=== PATIENT | male | born 1965 | race Caucasian/White ===

== ENCOUNTER 2020-04-01 06:06 | Outpatient (REF) | payer OTHER, SELFPAY ==
[2020-04-01 07:07] LABS: MANUAL DIFF FLAG NO
[2020-04-01 07:17] LABS: Basophils Percent Auto 0.5 % (0-2); Eosinophils Absolute Auto 0.1 X10*3/uL (0.0-0.4); Eosinophils Percent Auto 1.5 % (0-4); Imm Gran Abs Auto 0.04 X10*3/uL (0.00-0.03); Imm Gran Pct Auto 0.6 % (0.0-0.4); Lymphocytes Absolute Auto 1.5 X10*3/uL (1.2-4.9); Mean Corpuscular HGB Conc 34.1 g/dl (31.0-36.0); Mean Corpuscular Volume 96.7 fL (80-98); Mean Platelet Volume 10.7 fL (9.4-12.4); Monocytes Absolute Auto 0.5 X10*3/uL (0.1-1.2); Monocytes Percent Auto 7.7 % (2-11); Neutrophils Absolute Auto 4.5 X10*3/uL (2.0-8.3); Neutrophils Percent Auto 66.7 % (45-73); Platelet Count 222 X10*3/uL (160-400); Red Blood Count 4.55 X10*6/uL (4.60-5.80); Red Cell Distribution Width 12.4 % (11.0-16.0); White Blood Count 6.7 X10*3/uL (4.8-10.8)
[2020-04-01 07:46] LABS: Alanine Aminotransferase 34 U/L (0-40); Albumin Level 4.8 g/dL (3.5-5.0); Alkaline Phosphatase 90 U/L (39-117); Anion Gap 15 (12-20); Aspartate Amino Transferase 19 U/L (5-37); Bilirubin Total 1.9 mg/dL (0.0-1.0); Blood Urea Nitrogen 15 mg/dL (9-16); Calcium 9.5 mg/dL (8.4-10.2); Carbon Dioxide 25 mmol/L (22-29); Chloride 100 mmol/L (96-108); Cholesterol 168 mg/dL; Estimated Glomerular Filt Rate > 60; Glucose Fasting 104 mg/dL (60-99); HDL Cholesterol 46 mg/dL; LDL Cholesterol Calculated 93 mg/dl; Sodium 135 mmol/L (135-145); Total Protein 7.1 g/dL (6.5-8.0); Triglycerides 146 mg/dL
[2020-04-01 09:01] LABS: Reflex LDLD? No
== END 2020-04-01 06:07 | disposition home or self-care (01) ==
LOC: HO.LAB 06:06
PROVIDERS: Visit Provider Internal Medicine
DX: Z00.00 Encounter for general adult medical examination without abnormal findings (principal); E78.00 Pure hypercholesterolemia, unspecified; I10 Essential (primary) hypertension
CPT/HCPCS: 36415; 80053; 80061; 84153; 85025

== ENCOUNTER → 2020-04-08 14:28 | Outpatient (BNVA) | payer OTHER, SELFPAY | PROVIDERS: PCP Internal Medicine; Visit Provider Internal Medicine ==

== ENCOUNTER 2020-09-30 10:32 | Outpatient (REF) | payer OTHER, SELFPAY ==
[2020-09-30 10:36] LABS: MANUAL DIFF FLAG NO
[2020-09-30 11:11] LABS: Basophils Percent Auto 0.3 % (0-2); Eosinophils Absolute Auto 0.1 X10*3/uL (0.0-0.4); Eosinophils Percent Auto 2.3 % (0-4); Hematocrit 43.6 % (42-52); Hemoglobin 14.9 g/dl (14.0-18.0); Imm Gran Abs Auto 0.02 X10*3/uL (0.00-0.03); Imm Gran Pct Auto 0.3 % (0.0-0.4); Lymphocytes Absolute Auto 1.6 X10*3/uL (1.2-4.9); Mean Corpuscular HGB Conc 34.2 g/dl (31.0-36.0); Mean Corpuscular Hemoglobin 32.8 pg (27.0-33.0); Mean Platelet Volume 11.1 fL (9.4-12.4); Monocytes Absolute Auto 0.5 X10*3/uL (0.1-1.2); Monocytes Percent Auto 7.6 % (2-11); Neutrophils Absolute Auto 3.9 X10*3/uL (2.0-8.3); Neutrophils Percent Auto 63.5 % (45-73); Platelet Count 220 X10*3/uL (160-400); Red Blood Count 4.54 X10*6/uL (4.60-5.80); Red Cell Distribution Width 12.2 % (11.0-16.0); White Blood Count 6.2 X10*3/uL (4.8-10.8)
[2020-09-30 11:30] LABS: Alanine Aminotransferase 17 U/L (0-40); Albumin Level 4.6 g/dL (3.5-5.0); Alkaline Phosphatase 85 U/L (39-117); Anion Gap 16 (12-20); Aspartate Amino Transferase 15 U/L (5-37); Bilirubin Total 2.7 mg/dL (0.0-1.0); Blood Urea Nitrogen 9 mg/dL (9-16); Calcium 9.6 mg/dL (8.4-10.2); Carbon Dioxide 25 mmol/L (22-29); Chloride 102 mmol/L (96-108); Cholesterol 149 mg/dL; Estimated Glomerular Filt Rate > 60; Glucose Fasting 102 mg/dL (60-99); HDL Cholesterol 48 mg/dL; LDL Cholesterol Calculated 69 mg/dl; Potassium 4.1 mmol/L (3.3-5.1); Sodium 139 mmol/L (135-145); Total Protein 6.9 g/dL (6.5-8.0); Triglycerides 162 mg/dL
[2020-09-30 11:40] LABS: PSA,Total (Free>4and<10) 0.22 ng/mL (0.00-4.00)
[2020-09-30 11:56] LABS: Reflex LDLD? No
== END 2020-09-30 10:33 | disposition home or self-care (01) ==
LOC: HO.LNP 10:32
PROVIDERS: Visit Provider Internal Medicine
DX: Z00.00 Encounter for general adult medical examination without abnormal findings (principal); Z12.5 Encounter for screening for malignant neoplasm of prostate; I10 Essential (primary) hypertension; E78.00 Pure hypercholesterolemia, unspecified; E80.4 Gilbert syndrome
CPT/HCPCS: 80053; 80061; 84153; 85025

== ENCOUNTER 2021-02-09 08:08 | Outpatient (REF) | payer OTHER, SELFPAY ==
--- NOTE | ~2021-02-09 | XR_ITS ---
EXAMINATION: XR SHOULDER, RIGHT CLINICAL INFORMATION: Pain in the right shoulder COMPARISON: None TECHNIQUE: Three views of the right shoulder. FINDINGS: The bones and soft tissues are normal. No fracture. Glenohumeral and acromioclavicular alignment is anatomic with normal joint space. No abnormal soft tissue calcifications. XR/XR shoulder RT min 2V IMPRESSION: Normal right shoulder.
--- NOTE | ~2021-02-09 | XR_ITS ---
EXAMINATION: XR SHOULDER, LEFT CLINICAL INFORMATION: Left shoulder pain COMPARISON: None TECHNIQUE: AP external rotation, Grashey, scapular Y, and axillary views of the left shoulder. FINDINGS: The bones and soft tissues are normal. No fracture. Glenohumeral and acromioclavicular alignment is anatomic with normal joint space. No abnormal soft tissue calcifications. XR/XR shoulder LT min 2V IMPRESSION: Normal left shoulder.
== END 2021-02-09 08:09 | disposition home or self-care (01) ==
LOC: HO.HOSX 08:08
PROVIDERS: Visit Provider Physician Assistant
DX: M75.51 Bursitis of right shoulder (principal)
CPT/HCPCS: 20610; 73030; J1040

== ENCOUNTER 2021-04-02 10:40 | Outpatient (REF) | payer OTHER, SELFPAY ==
[2021-04-02 11:36] LABS: Alanine Aminotransferase 63 U/L (0-40); Albumin Level 4.6 g/dL (3.5-5.0); Alkaline Phosphatase 135 U/L (39-117); Aspartate Amino Transferase 29 U/L (5-37); Bilirubin Direct 0.6 mg/dL (0.0-0.5); Bilirubin Total 1.7 mg/dL (0.0-1.0); Cholesterol 159 mg/dL; HDL Cholesterol 49 mg/dL; LDL Cholesterol Calculated 89 mg/dl; Total Protein 6.9 g/dL (6.5-8.0); Triglycerides 109 mg/dL
[2021-04-02 11:59] LABS: Reflex LDLD? No
== END 2021-04-02 10:41 | disposition home or self-care (01) ==
LOC: HO.LNP 10:40
PROVIDERS: Visit Provider Internal Medicine
DX: E78.00 Pure hypercholesterolemia, unspecified (principal)
CPT/HCPCS: 80061; 80076

== ENCOUNTER → 2021-04-09 14:42 | Outpatient (BNVA) | payer OTHER, SELFPAY | PROVIDERS: PCP Internal Medicine; Referring Provider Internal Medicine; Visit Provider Internal Medicine | DX: I25.10 Atherosclerotic heart disease of native coronary artery without angina pectoris (principal); I10 Essential (primary) hypertension; E78.5 Hyperlipidemia, unspecified; R79.89 Other specified abnormal findings of blood chemistry | CPT/HCPCS: 93005 ==

== ENCOUNTER → 2021-04-22 14:36 | Outpatient (BNVA) | payer OTHER, SELFPAY | PROVIDERS: PCP Internal Medicine; Visit Provider Physician Assistant | DX: M75.51 Bursitis of right shoulder (principal); M25.512 Pain in left shoulder; M77.8 Other enthesopathies, not elsewhere classified | CPT/HCPCS: 20610 ==

== ENCOUNTER → 2021-05-20 14:49 | Outpatient (REF) | payer OTHER, SELFPAY ==
--- NOTE | 2021-05-20 14:53 | CA_ITS ---
Transthoracic Echocardiogram Patient (Last, First, Middle): Jaya Finley M Gender: Male Date of : 1965 Age: 55 Procedure Date: 05/20/2021 Procedure Type: Transthoracic Echocardiogram Location: OP Height: 172.72 cm Weight: 86.18 kg BSA: 2.00 m2 Heart Rate: bpm BP: 142 / 86 mmHg Spotter: FAUSTO Referring MD: German Marinelli MD Director Non Profit: Grant Kee MD Symptoms: I25.10 - Atherosclerotic heart disease of [place] coronary... Study Quality: Fair ECG Rhythm: Sinus Conclusions: - 1. Normal LV systolic function 2. Normal cardiac valvular Dopplers 3. Normal RVSP 4. No pericardial effusion Findings Left Ventricle Normal left ventricular size, thickness, and systolic function. The visually estimated ejection fraction is between 60-65%. Spectral Doppler is indicative of a normal filling pattern. E/E prime ratio is between 8 and 15 consistent with indeterminate filling pressures. Right Ventricle Normal right ventricular cavity size and systolic function. Atria The left atrium is normal in size. There is no evidence of interatrial shunt. The right atrium is normal in size. Aortic Valve There is mild calcification of the aortic valve. There is no aortic valve stenosis. There is no aortic valve regurgitation. Mitral Valve There is mild anterior and posterior mitral leaflet thickening. There is mild mitral annular calcification. There is trace mitral valve regurgitation. There is no mitral valve stenosis. Pulmonic Valve The pulmonic valve was not well visualized. Tricuspid Valve Likely normal tricuspid valve structure and function. There is trace tricuspid valve regurgitation. The right ventricular systolic pressure is normal. The right ventricular systolic pressure is 14 mmHg. Normal right atrial pressure. There is no evidence of pulmonary hypertension. Great Vessels All visible segments of the aorta are normal in size. The pulmonary artery was not well visualized. Small plaque is seen in the ascending aorta. Venous The inferior vena cava is normal in size and collapses greater than 50% with inspiration. Pericardium/Pleural There is no evidence of pericardial effusion. Prior Study Comparison No significant change compared to prior study dated: 09/08/2016. Measurements 2D Linear Measurements IVSd: 0.82 0.6-0.9/0.6-1.0 cm LVIDd: 4.88 3.9-5.3/4.2-5.9 cm LVIDd Index: 2.44 2.4-3.2/2.2-3.1 cm/m2 LVIDs: 3.01 2.0-3.6 cm LVPWd: 0.95 0.7-1.1 cm LA Diam: 4.30 2.7-3.8/3.0-4.0 cm LAIDs Index: 2.15 1.5-2.3 cm/m2 LV Mass: 184.70 67-162/88-224 g LV Mass Index: 92.35 43-95/49-115 g/m2 LVOT Diam: 2.10 3.0+(-)1.3 cm 2D Systolic Function EF 4C: 66.60 >55% EF 2C: 69.10 >55% EF BiP: 65.90 >55% Mitral Valve MV Pk E: 1.10 MV PK A: 0.88 MV Decel Time: 188.00 E/A: 1.20 E'Lateral: 12.80 E'Medial: 9.25 E/E' Med: 11.90 E/E' Lat: 8.60 PHT: 55.00 MVA PHT: 4.00 Decel Leon: 5.84 Aortic Valve AoV Pk Paras: 1.57 AoV Mn Paras: 0.92 AoV VTI: 0.32 AoV Pk Grad: 10.00 Aov Mn Grad: 4.00 MICHELLE Cont.VTI: 2.70 LVOT LVOT Pk Paras: 1.22 LVOT Mn Paras: 0.69 LVOT VTI: 0.25 LVOT Pk Grad: 6.00 LVOT Mn Grad: 2.00 LVOT Diam: 2.10 LVOT Area: 3.46 Diastolic Function MV Pk E: 1.10 MV Pk A: 0.88 E/A: 1.20 E'Medial: 9.25 E/E' Med: 11.90 E' Laterial: 12.80 E/E' Lat: 8.60 Right Ventricle TAPSE (mm): 26.40 TVS' Paras: 13.90 Tricuspid Valve TR Pk Paras: 1.68 TR Pk Grad: 11.00 RA Press: 3.00 RVSP: 14.00 Great Vessels Aorta Sinus of Valsalva: 2.92 2.0-3.[address] Ridge: 2.98 1.7-3.4 cm Ao Asc: 3.60 2.1-3.4 cm Ao Arch: 3.30 Updated in Other Vendor System with Status of Final Grant Kee MD electronically signed on 05/20/2021 10:13:26 PM with status of Final
== END ==
LOC: HO.CARD 14:49
PROVIDERS: PCP Internal Medicine; Visit Provider Internal Medicine
DX: R07.2 Precordial pain (principal); I25.10 Atherosclerotic heart disease of native coronary artery without angina pectoris
CPT/HCPCS: 93306

== ENCOUNTER 2021-06-01 16:04 | Outpatient (REF) | payer OTHER, SELFPAY | END 2021-06-01 16:05 | disposition home or self-care (01) | LOC: HO.MRI 16:04 | PROVIDERS: PCP Internal Medicine; Visit Provider Physician Assistant | DX: Z13.89 Encounter for screening for other disorder (principal) ==

== ENCOUNTER 2021-06-06 07:46 | Outpatient (REF) | payer OTHER, SELFPAY ==
[2021-06-06 08:54] LABS: Alanine Aminotransferase 27 U/L (0-40); Albumin Level 4.4 g/dL (3.5-5.0); Alkaline Phosphatase 75 U/L (39-117); Aspartate Amino Transferase 17 U/L (5-37); Bilirubin Direct 0.7 mg/dL (0.0-0.5); Bilirubin Total 2.4 mg/dL (0.0-1.0); Total Protein 6.6 g/dL (6.5-8.0)
== END 2021-06-06 07:47 | disposition home or self-care (01) ==
LOC: HO.LAB 07:46
PROVIDERS: PCP Internal Medicine; Visit Provider Internal Medicine
DX: I25.10 Atherosclerotic heart disease of native coronary artery without angina pectoris (principal)
CPT/HCPCS: 36415; 80076

== ENCOUNTER 2021-07-27 14:56 | Outpatient (REF) | payer OTHER, SELFPAY ==
[2021-07-27 15:41] LABS: COVID-19 Test Negative (Negative)
== END 2021-07-27 14:57 | disposition home or self-care (01) ==
LOC: HO.LAB 14:56
PROVIDERS: Visit Provider Internal Medicine
DX: Z20.822 Contact with and (suspected) exposure to COVID-19 (principal)
CPT/HCPCS: 87635; C9803

== ENCOUNTER 2021-10-08 11:19 | Outpatient (REF) | payer OTHER, SELFPAY ==
[2021-10-08 11:24] LABS: MANUAL DIFF FLAG NO
[2021-10-08 12:33] LABS: Basophils Percent Auto 0.3 % (0-2); Eosinophils Absolute Auto 0.2 X10*3/uL (0.0-0.4); Eosinophils Percent Auto 2.7 % (0-4); Hematocrit 44.8 % (42.0-52.0); Hemoglobin 15.3 g/dl (14.0-18.0); Imm Gran Abs Auto 0.03 X10*3/uL (0.00-0.03); Imm Gran Pct Auto 0.4 % (0.0-0.4); Lymphocytes Absolute Auto 1.4 X10*3/uL (1.2-4.9); Lymphocytes Percent Auto 21.2 % (20-40); Mean Corpuscular HGB Conc 34.2 g/dl (31.0-36.0); Mean Corpuscular Hemoglobin 32.1 pg (27.0-33.0); Mean Corpuscular Volume 93.9 fL (80.0-98.0); Mean Platelet Volume 11.2 fL (9.4-12.4); Monocytes Absolute Auto 0.6 X10*3/uL (0.1-1.2); Monocytes Percent Auto 8.1 % (2-11); Neutrophils Absolute Auto 4.6 x10*3/uL (2.0-8.3); Neutrophils Percent Auto 67.3 % (45-73); Platelet Count 189 X10*3/uL (160-400); Red Blood Count 4.77 X10*6/uL (4.60-5.80); Red Cell Distribution Width 12.8 % (11.0-16.0); White Blood Count 6.8 X10*3/uL (4.8-10.8)
[2021-10-08 12:43] LABS: Appearance Urine CLEAR; Color Urine YELLOW; Glucose Urine UA NEG (NEG); Leukocyte Esterase Urine NEG (NEG); Nitrite Urine NEG (NEG); Urine Blood NEG (NEG); Urine Ketones NEG (NEG); Urine Protein NEG (NEG-TRACE)
[2021-10-08 13:06] LABS: Squamous Epithelial Cell Urine 1+ /LPF
[2021-10-08 13:13] LABS: RBC Urine 0 /HPF (0); Sperm Urine NOTED; WBC Urine 0 /HPF (0-4)
[2021-10-08 13:35] LABS: Alanine Aminotransferase 27 U/L (0-40); Albumin Level 4.5 g/dL (3.5-5.0); Alkaline Phosphatase 90 U/L (39-117); Anion Gap 14 (12-20); Aspartate Amino Transferase 14 U/L (5-37); Bilirubin Total 2.2 mg/dL (0.0-1.0); Blood Urea Nitrogen 7 mg/dL (9-16); Calcium 8.9 mg/dL (8.4-10.2); Carbon Dioxide 26 mmol/L (22-29); Chloride 103 mmol/L (96-108); Cholesterol 146 mg/dL; Estimated Glomerular Filt Rate > 60; Glucose Fasting 73 mg/dL (60-99); HDL Cholesterol 43 mg/dL; LDL Cholesterol Calculated 79 mg/dl; Potassium 3.6 mmol/L (3.3-5.1); Sodium 139 mmol/L (135-145); Total Protein 6.6 g/dL (6.5-8.0); Triglycerides 124 mg/dL
[2021-10-08 14:10] LABS: PSA,Total (Free>4and<10) 0.52 ng/mL (0.00-4.00)
== END 2021-10-08 11:20 | disposition home or self-care (01) ==
LOC: HO.LNP 11:19
PROVIDERS: Visit Provider Internal Medicine
DX: Z00.00 Encounter for general adult medical examination without abnormal findings (principal); I10 Essential (primary) hypertension; E78.00 Pure hypercholesterolemia, unspecified; Z12.5 Encounter for screening for malignant neoplasm of prostate
CPT/HCPCS: 80053; 80061; 81001; 84153; 85025

== ENCOUNTER 2022-03-26 14:14 | Outpatient (REF) | payer OTHER, SELFPAY ==
[2022-03-26 15:26] LABS: TSH reflex Free T4 1.09 uIU/mL (0.32-4.0)
== END 2022-03-26 14:15 | disposition home or self-care (01) ==
LOC: HO.LAB 14:14
PROVIDERS: PCP Internal Medicine; Visit Provider Internal Medicine
DX: E04.9 Nontoxic goiter, unspecified (principal)
CPT/HCPCS: 36415; 84443

== ENCOUNTER 2022-03-30 15:17 | Outpatient (REF) | payer OTHER, SELFPAY ==
--- NOTE | ~2022-03-30 | US_ITS ---
EXAMINATION: US THYROID CLINICAL INFORMATION: Enlarged thyroid. COMPARISON: None TECHNIQUE: Linear transducer grayscale and color Doppler examination with attention to the region of the thyroid. FINDINGS: SIZE: Measurements of the thyroid lobes and nodules are given in sagittal, anteroposterior and transverse dimensions respectively. Right Thyroid Lobe: 4.7 x 1.3 x 1.6 cm, volume 5.3 mL. Parenchyma: The gland echotexture is homogeneous. Thyroid vascularity is normal. Left Thyroid Lobe: 4.0 x 1.7 x 1.6 cm, volume 5.7 mL. Parenchyma: The gland echotexture is homogeneous. Thyroid vascularity is normal. Isthmus: 0.4 cm in maximum AP dimension. No suspicious focal thyroid nodule is seen. NODES: No lymphadenopathy is seen in the tissue surrounding the thyroid gland. US/US thyroid IMPRESSION: Unremarkable thyroid ultrasound. ACR TI-RADS RECOMMENDATION REFERENCE: Ultrasound-guided fine-needle aspiration, followup ultrasound, no further follow up. * TR1 (0 point) and TR 2 (2 points): No FNA or follow up. * TR3 (3 points): FNA if more than or equal to 2.5 cm in maximum dimension, followup ultrasound in 1, 3 and 5 years if 1.5 to 2.4 cm in maximum dimension. * TR4 (4-6 points): FNA if more than or equal to 1.5 cm in maximum dimension, followup ultrasound in 1, 2, 3 and 5 years if 1 to 1.4 cm in maximum dimension. * TR5 (more than or equal to 7 points): FNA if more than or equal to 1 cm in maximum dimension, followup ultrasound every year for 5 years if 0.5 to 0.9 cm in maximum dimension. * TR3, TR4 or TR5 nodules that are below the size threshold for followup receive no follow up.
== END 2022-03-30 15:18 | disposition home or self-care (01) ==
LOC: HO.US 15:17
PROVIDERS: PCP Internal Medicine; Visit Provider Internal Medicine
DX: E04.9 Nontoxic goiter, unspecified (principal)
CPT/HCPCS: 76536

== ENCOUNTER → 2022-04-08 14:48 | Outpatient (BNVA) | payer OTHER, SELFPAY | PROVIDERS: PCP Internal Medicine; Visit Provider Internal Medicine | DX: I25.10 Atherosclerotic heart disease of native coronary artery without angina pectoris (principal); I10 Essential (primary) hypertension; R79.89 Other specified abnormal findings of blood chemistry; E78.5 Hyperlipidemia, unspecified | CPT/HCPCS: 93005 ==

== ENCOUNTER 2022-04-16 10:32 | Outpatient (REF) | payer OTHER, SELFPAY ==
[2022-04-16 11:52] LABS: Alanine Aminotransferase 38 U/L (0-40); Albumin Level 4.6 g/dL (3.5-5.0); Alkaline Phosphatase 90 U/L (39-117); Aspartate Amino Transferase 21 U/L (5-37); Bilirubin Direct 0.6 mg/dL (0.0-0.5); Bilirubin Total 2.5 mg/dL (0.0-1.0); Cholesterol 162 mg/dL; HDL Cholesterol 53 mg/dL; LDL Cholesterol Calculated 87 mg/dl; Total Protein 6.6 g/dL (6.5-8.0); Triglycerides 114 mg/dL
[2022-04-16 12:44] LABS: Reflex LDLD? No
== END 2022-04-16 10:33 | disposition home or self-care (01) ==
LOC: HO.LNP 10:32
PROVIDERS: Visit Provider Internal Medicine
DX: E78.00 Pure hypercholesterolemia, unspecified (principal)
CPT/HCPCS: 80061; 80076

== ENCOUNTER 2022-05-04 08:13 | Outpatient (REF) | payer OTHER, SELFPAY ==
--- NOTE | ~2022-05-04 | CT_ITS ---
EXAMINATION: CT SOFT TISSUE NECK WITH CONTRAST CLINICAL INFORMATION: Thyroglossal duct cyst COMPARISON: CT neck 05/31/2006 TECHNIQUE: Following the administration of 60 mL of Omnipaque 350 intravenous contrast, helical imaging was performed in the axial plane with generation of coronal and sagittal reformatted images. This CT examination was performed using dose optimization techniques as appropriate, variously including the following: *Automated exposure control. *Adjustment of mA and/or kV according to patient size (this includes techniques or standardized protocols for targeted exams where dose is matched to indication/reason for exam; i.e. extremities or head). *Use of iterative reconstruction technique. DLP: History 66 mGy-cm. FINDINGS: Nasopharynx/skull base: The fat planes of the skull base and soft tissues of the nasopharynx are unremarkable. The soft palate contacts the posterior nasopharyngeal wall. The paranasal sinuses and mastoid air cells are well aerated. The temporomandibular joints are normal. Suprahyoid neck: The patient is edentulous. The oropharynx, oral cavity, and bilateral salivary gland tissues are unremarkable. Infrahyoid neck: The hypopharynx is unremarkable. There is a 3 mm air-filled internal laryngocele on the right. Adduction of the vocal cords at time of imaging limits assessment of the glottis. No thyroglossal duct cyst is identified, however there is a new 3 mm calcification within the left paramidline infrahyoid neck within the preepiglottic fat which is nonspecific and of indeterminate etiology. Thyroid: 4 mm hypodense right thyroid nodule below size criteria for imaging follow-up Lymph nodes: There is no cervical chain lymphadenopathy. Lung apices: Few scattered calcified granulomata throughout the lungs, some of which were excluded from the [id number] on prior examination, likely sequelae of prior granulomatous disease. Vascular structures: Severe coronary artery vascular calcifications. Common origin of the brachycephalic trunk and left common carotid artery. Multifocal minimal calcific plaque along the great vessel origins and at the common carotid bifurcations. Osseous structures: Mild cervical spondylosis contributing to multilevel moderate to high-grade neural foraminal stenosis. Other: The imaged portions of the brain parenchyma are unremarkable. Progressive calcific plaque along the left greater than right carotid siphons. CT/CT soft tissue neck w IV con IMPRESSION: 1. No thyroglossal duct cyst is identified, however there is a new 3 mm calcification within the left paramidline infrahyoid neck within the preepiglottic fat which is nonspecific and of indeterminate etiology. 2. Few scattered calcified granulomata throughout the lungs, some of which were excluded from the [id number] on prior examination, likely sequelae of prior granulomatous disease.
[2022-05-04] MEDS: iohexoL 350 MG/ML 100 ML INFUS..BTL 60 ML IV (09:11)
[2022-05-04 13:37] LABS: Creatinine POC 0.9 mg/dL (0.5-1.4); GFR POC > 60
== END 2022-05-04 08:14 | disposition home or self-care (01) ==
LOC: HO.CT 08:13
PROVIDERS: Visit Provider Internal Medicine
DX: Q69.2 Accessory toe(s) (principal)
CPT/HCPCS: 70491; 82565; Q9967

== ENCOUNTER 2022-05-25 10:15 | Outpatient (REF) | payer OTHER, SELFPAY ==
--- NOTE | ~2022-05-25 | FL_ITS ---
EXAMINATION: FL BARIUM SWALLOW CLINICAL INFORMATION: Localized swelling, mass and lump. COMPARISON: None TECHNIQUE: Barium swallow examination is performed using fluoroscopic evaluation in addition to multiple fluoroscopic spot views. The patient is imaged both upright and prone and using both thick and thin sulfate along with effervescent granules. FLUOROSCOPY TIME: 1.2 minutes. DOSE AREA PRODUCT: 10.3 Gy-cm2 FLUOROSCOPIC IMAGES: 52 FINDINGS: Following oral administration of thick barium, barium coated turkey there is normal propagation of bolus from the oral cavity through the pharynx, esophagus into stomach without any evidence of obstruction, narrowing or stricture. On placing patient prone lying and oral administration of thin barium there is good distention of the esophagus without any evidence of obstruction, narrowing or stricture. No laryngeal penetration or aspiration seen. There is no retention of barium in the valleculae or piriform sinuses. FL/FL barium swallow IMPRESSION: Unremarkable barium swallow exam.
== END 2022-05-25 10:16 | disposition home or self-care (01) ==
LOC: HO.XRAY 10:15
PROVIDERS: Visit Provider Internal Medicine
DX: R22.1 Localized swelling, mass and lump, neck (principal)
CPT/HCPCS: 74220

== ENCOUNTER 2022-07-06 07:18 | Outpatient (REF) | payer OTHER, SELFPAY ==
--- NOTE | ~2022-07-06 | XR_ITS ---
EXAMINATION: XR LUMBOSACRAL SPINE CLINICAL INFORMATION: Reason for Exam Radiculopathy, lumbar REGION COMPARISON: Lumbar spine radiographs 03/19/2012 TECHNIQUE: 3 views of the lumbar spine FINDINGS: 5 nonrib-bearing lumbar-type vertebral bodies. Vertebral body heights are maintained. Alignment is maintained. Mild multilevel degenerative disc disease with minimal loss of disc space height and degenerative endplate spurring with moderate to advanced lower lumbosacral facet arthropathy progressed from prior. Atherosclerotic calcifications of the abdominal aorta. XR/XR lumbar spine 2-3V IMPRESSION: Mild multilevel degenerative disc disease with minimal loss of disc space height and degenerative endplate spurring with moderate to advanced lower lumbosacral facet arthropathy progressed from prior.
== END 2022-07-06 07:19 | disposition home or self-care (01) ==
LOC: HO.XRAY 07:18
PROVIDERS: PCP Internal Medicine; Visit Provider Physician Assistant
DX: M54.16 Radiculopathy, lumbar region (principal)
CPT/HCPCS: 72100

== ENCOUNTER 2022-07-30 07:19 | Outpatient (REF) | payer OTHER, SELFPAY ==
--- NOTE | ~2022-07-30 | MR_ITS ---
EXAMINATION: MR LUMBAR SPINE WITHOUT CONTRAST CLINICAL INFORMATION: Radiculopathy COMPARISON: Lumbar spine MRI 01/20/2006 TECHNIQUE: MRI of the lumbar spine was obtained using routine sequences without contrast. FINDINGS: Normal lumbar lordosis is preserved. No significant spondylolisthesis. Vertebral body heights are maintained. There is no suspicious osseous lesion. Multilevel disc desiccation with increased mild T12-L1 disc height loss. Progressive multilevel type II Modic endplate change and new prominent type I Modic endplate change along the T12 anterior inferior endplate on a background of type II Modic endplate change. Redemonstrated multilevel small endplate Schmorl's nodes. Multilevel anterior osteophytic spurring is seen.There are multilevel degenerative changes with level by level detail as follows: L1-L2: Trace annular disc bulge and mild bilateral facet arthrosis. Prominence of the dorsal epidural fat. Stable to slightly increased mild spinal canal narrowing without neural foraminal stenosis. L2-L3: Annular disc bulge with new left greater than right far lateral disc protrusions and associated annular fissure on the left with adjacent paraspinal edema suggestive of acute inflammation (image 1, series 5). Mild bilateral facet arthrosis and ligamentum flavum thickening. Prominence of the dorsal epidural fat. Stable mild spinal canal narrowing. Increased mild bilateral neural foraminal stenosis with new mass effect along the extraforaminal left and to a lesser extent right L2 nerve roots. L3-L4: Annular disc bulge with new superiorly migrated left foraminal disc extrusion and moderate facet arthrosis with ligamentum flavum thickening. Stable mild spinal canal narrowing and subarticular zone stenosis with abutment along the traversing bilateral L4 nerve roots. Increased moderate to severe left neural foraminal stenosis with new mass effect along the exiting left L3 nerve root and similar mild right neural foraminal stenosis. L4-L5: Annular disc bulge with bilateral moderate facet arthrosis and ligamentum flavum thickening. Degenerative marrow and periarticular edema associated with the right facet joint with small extracanalicular cysts associated with the left facet joint projecting into the paraspinal soft tissues. Stable mild spinal canal stenosis and subarticular zone narrowing with encroachment upon/abutment of the traversing L5 nerve roots. Increased severe right neural foraminal stenosis with compression of the exiting right L4 nerve root and increased moderate left neural foraminal stenosis with lesser mass effect along the exiting left L4 nerve root. L5-S1: Annular disc bulge with moderate bilateral facet arthrosis. No spinal canal stenosis. Unchanged mild to moderate bilateral neural foraminal stenosis with impingement upon the exiting left L5 nerve root. The conus medullaris terminates at the level of T12. The distal spinal cord is normal in appearance. No epidural fluid collection, hematoma, or mass. Increased mild fatty atrophy of the paraspinal musculature. Markedly distended bladder. The abdominal aorta is of normal contour and caliber. Degenerative osteophytic spurring along the right greater than left sacroiliac joints. MR/MR lumbar spine wo con IMPRESSION: 1. At L2-L3, new left greater than right far lateral disc protrusions and associated annular fissure and paraspinal edema/inflammatory change on the left. Increased mild bilateral neural foraminal stenosis with new mass effect along the extraforaminal left and to a lesser extent right L2 nerve roots. 2. At L3-L4, new superiorly migrated left foraminal disc extrusion results in increased severe left neural foraminal stenosis with new mass effect along the exiting left L3 nerve root. 3. At L4-L5, worsening severe right and moderate left neural foraminal stenosis with compression of the exiting right greater than left L4 nerve roots. 4. At L5-S1, stable mild to moderate bilateral neural foraminal stenosis with impingement upon the exiting left L5 nerve root. 5. Progressive mild T12-L1 disc height loss with increased type I Modic endplate change on a background of type II Modic endplate change at this level. Progressive multilevel type II Modic endplate change. 6. Markedly distended bladder.
== END 2022-07-30 07:20 | disposition home or self-care (01) ==
LOC: HO.MRI 07:19
PROVIDERS: PCP Internal Medicine; Visit Provider Physician Assistant
DX: M54.16 Radiculopathy, lumbar region (principal)
CPT/HCPCS: 72148

== ENCOUNTER 2022-09-02 13:38 | Outpatient (REF) | payer OTHER, SELFPAY ==
--- NOTE | ~2022-09-02 | US_ITS ---
EXAMINATION: US PELVIS LIMITED (BLADDER) CLINICAL INFORMATION: Bladder distention. COMPARISON: CT abdomen and pelvis without and with contrast 01/18/2017. TECHNIQUE: Real-time imaging of the bladder. FINDINGS: BLADDER: Well distended and normal. Bilateral ureteral jets are demonstrated. Prevoid bladder volume is 1094 mL. Postvoid bladder volume is 231 mL. OTHER: Prostate dimensions are 3.6 x 3.6 x 3.8 cm (volume 26.1 mL). US/US bladder IMPRESSION: There is a significantly increased postvoid residual volume.
== END 2022-09-02 13:39 | disposition home or self-care (01) ==
LOC: HO.US 13:38
PROVIDERS: PCP Internal Medicine; Visit Provider Internal Medicine
DX: N32.89 Other specified disorders of bladder (principal)
CPT/HCPCS: 76857

== ENCOUNTER 2022-10-07 13:17 | Outpatient (REF) | payer OTHER, SELFPAY ==
[2022-10-07 13:55] LABS: MANUAL DIFF FLAG NO
[2022-10-07 14:05] LABS: Basophils Percent Auto 0.4 % (0-2); Eosinophils Absolute Auto 0.2 X10*3/uL (0.0-0.4); Eosinophils Percent Auto 4.3 % (0-4); Hemoglobin 15.6 g/dl (14.0-18.0); Imm Gran Abs Auto 0.01 X10*3/uL (0.00-0.03); Imm Gran Pct Auto 0.2 % (0.0-0.4); Lymphocytes Absolute Auto 1.6 X10*3/uL (1.2-4.9); Lymphocytes Percent Auto 35.7 % (20-40); Mean Corpuscular HGB Conc 33.9 g/dl (31.0-36.0); Mean Corpuscular Hemoglobin 31.8 pg (27.0-33.0); Mean Corpuscular Volume 93.9 fL (80.0-98.0); Mean Platelet Volume 10.5 fL (9.4-12.4); Monocytes Absolute Auto 0.4 X10*3/uL (0.1-1.2); Monocytes Percent Auto 9.4 % (2-11); Neutrophils Absolute Auto 2.2 x10*3/uL (2.0-8.3); Platelet Count 188 X10*3/uL (160-400); Red Cell Distribution Width 13.4 % (11.0-16.0); White Blood Count 4.5 X10*3/uL (4.8-10.8)
[2022-10-07 14:21] LABS: Alanine Aminotransferase 34 U/L (0-40); Albumin Level 4.4 g/dL (3.5-5.0); Alkaline Phosphatase 86 U/L (39-117); Anion Gap 16 (12-20); Aspartate Amino Transferase 22 U/L (5-37); Blood Urea Nitrogen 6 mg/dL (9-16); Calcium 9.5 mg/dL (8.4-10.2); Carbon Dioxide 23 mmol/L (22-29); Chloride 104 mmol/L (96-108); Cholesterol 164 mg/dL; Estimated Glomerular Filt Rate > 60; Glucose Fasting 96 mg/dL (60-99); HDL Cholesterol 49 mg/dL; LDL Cholesterol Calculated 82 mg/dl; Potassium 3.8 mmol/L (3.3-5.1); Sodium 139 mmol/L (135-145); Total Protein 6.7 g/dL (6.5-8.0); Triglycerides 166 mg/dL
[2022-10-07 14:26] LABS: Appearance Urine Clear; Color Urine Yellow; Glucose Urine UA Negative (Negative); Leukocyte Esterase Urine Negative (Negative); Nitrite Urine Negative (Negative); PH 6.5 (5.0-9.0); Urine Blood Negative (Negative); Urine Ketones Negative (Negative); Urine Protein Negative (Neg-Trace)
[2022-10-07 14:31] LABS: Bacteria Urine None Seen (None Seen); Hyaline Casts Urine 0-2 /LPF (0-2); RBC Urine 0-2 /HPF (0-2); Squamous Epithelial Cell Urine 0-2 /HPF (0-2); WBC Urine 0-5 /HPF (0-5)
[2022-10-07 14:32] LABS: PSA,Total (Free>4and<10) 0.68 ng/mL (0.00-4.00)
== END 2022-10-07 13:18 | disposition home or self-care (01) ==
LOC: HO.LNP 13:17
PROVIDERS: Visit Provider Internal Medicine
DX: Z00.00 Encounter for general adult medical examination without abnormal findings (principal); I10 Essential (primary) hypertension; E78.00 Pure hypercholesterolemia, unspecified; Z12.5 Encounter for screening for malignant neoplasm of prostate
CPT/HCPCS: 80053; 80061; 81001; 84153; 85025

== ENCOUNTER 2022-11-10 19:32 | Outpatient (REF) | payer OTHER, SELFPAY | END 2022-11-10 19:33 | disposition home or self-care (01) | LOC: HO.MRI 19:32 | PROVIDERS: PCP Internal Medicine; Visit Provider Physical Medicine & Rehabilitation | DX: Z13.89 Encounter for screening for other disorder (principal) ==

== ENCOUNTER 2022-12-17 13:12 | Outpatient (AMB) | payer OTHER, SELFPAY ==
[2022-12-17 13:14] VITALS: BP 140/86; PULSE 57; BMI 29.2
--- NOTE | 2022-12-17 13:14 | MHC.OFFVIS ---
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 Today he reports that he has been getting increasing amounts of left chest pressure. It only occurs when he is angry at work. He reports high stress levels at work and in his home life. No clear exertional discomfort. No shortness of breath, PND, orthopnea or edema. No presyncope, syncope. He has been taking his meds as directed. 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 Review of Systems Const All systems reviewed & are unremarkable except as noted in HPI and below Reports headache(s) (high stress and anger) ENT Denies dizziness and Reports headache(s) (high stress and anger) Card Reports chest pain, Reports chest pain at rest, Denies chest pain with activity, Denies rapid heart rate, Denies pedal edema, Denies edema, Denies leg edema, Denies lightheadedness, Denies palpitations, Denies dyspnea, Denies dyspnea on exertion and Denies orthopnea Resp Denies cough, Denies dyspnea and Denies dyspnea on exertion GI Denies hematochezia and Denies change in stool character Musc Denies abnormal gait, Denies limited range of motion, Denies muscle cramps, Denies muscle weakness, Denies numbness, Denies radiating pain into limb, Denies stiffness and Denies tingling Neuro Denies abnormal gait, Denies dizziness, Reports headache(s) (high stress and anger), Denies numbness and Denies tingling Endo Denies palpitations Physical Exam Vital Signs: Last Vital Signs Pulse 57 12/17/22 13:14 BP 140/86 H 12/17/22 13:14 BMI result Body Mass Index 29.2 Const General: cooperative, healthy appearing, comfortable and no acute distress Orientation/consciousness: patient oriented x3 Neck Neck: Yes normal visual inspection Resp Effort & Inspection: normal respiratory effort Auscultation: clear to auscultation bilaterally, no crackles, no rales, no rhonchi and no wheezes Cardio Jugular venous distension: no JVD Rate: regular rate Rhythm: regular rhythm Heart sounds: S1 normal heart sound present, S2 normal heart sound present, no murmurs and no rubs Neuro General: patient oriented x3 Extrem General: Yes normal to inspection Psych Appearance: grossly normal Mental Status: mental status grossly normal Speech and movement: Normal speech and movement present Office Procedures EKG Details: Today, read by me, sinus bradycardia, rate 49, QTC 366 millisecond [id number], Complete Assessment & Plan Assessment & Plan (1) Atherosclerotic cardiovascular disease: Code(s): I25.10 - Atherosclerotic heart disease of [place] coronary artery without angina pectoris Plan: History of CAD, NSTEMI 2014 with ZULY to the left circumflex. Last nuclear stress test in 2019 showed no ischemia. Echocardiogram done 05/20/2021 showed EF 60-65%, no valve abnormalities. Today he reports increasing amounts of left chest pressure when he is angry and stressed. He denies exertional symptoms. EKG done today showing sinus bradycardia with no acute ST or T-wave abnormalities, rate 49. He continues on aspirin, high-dose atorvastatin, metoprolol. On last visit cardiac testing was discussed with him and he declined. At this time he is willing to proceed with testing as warranted. Will order an exercise nuclear stress test to evaluate for ischemia. Instructed to hold metoprolol the day before and morning of the test. Will order echocardiogram to stress for EF and wall motion. Plan to call him with results. He has cardiology office visit planned for March 2023 at present. Will keep that appointment and just as needed for test results. Signs and symptoms of angina reviewed. Emergency care if needed for symptoms. (2) History of heart artery stent: Code(s): Z95.5 - Presence of coronary angioplasty implant and graft (3) Essential hypertension: Code(s): I10 - Essential (primary) hypertension Plan: Mild elevation today. He does report high levels of anger and stress at work. He has been taking his meds as directed. No med changes made today (4) Other and unspecified hyperlipidemia: Code(s): E78.5 - Hyperlipidemia, unspecified Plan: [place] LDL goal less than 70. Labs done 10/07/2022 show LDL 82. Continue high-dose atorvastatin. He is upset at this visit due to issues at work. Will hold off on adding additional medication at present. Benefits of routine exercise reviewed. Coding Level of Care Code Est Pt Level 4 (44108) Diagnoses Atherosclerotic cardiovascular disease I25.10 History of heart artery stent Z95.5 Essential hypertension I10 Other and unspecified hyperlipidemia E78.5 CPT Codes EKG - CPT: [id number], Complete ([id number]) Time Spent (min) 26
== END 2022-12-17 13:43 | disposition home or self-care (01) ==
PROVIDERS: PCP Internal Medicine; Visit Provider Nurse Practitioner Family
DX: I25.10 Atherosclerotic heart disease of native coronary artery without angina pectoris (principal); Z95.5 Presence of coronary angioplasty implant and graft; I10 Essential (primary) hypertension; E78.5 Hyperlipidemia, unspecified
CPT/HCPCS: 93010; 99214

== ENCOUNTER → 2022-12-17 13:12 | Outpatient (BNVA) | payer OTHER, SELFPAY | PROVIDERS: PCP Internal Medicine; Visit Provider Nurse Practitioner Family | DX: I25.10 Atherosclerotic heart disease of native coronary artery without angina pectoris (principal); I10 Essential (primary) hypertension; Z95.5 Presence of coronary angioplasty implant and graft | CPT/HCPCS: 93005 ==

== ENCOUNTER 2023-01-05 10:10 | Outpatient (REF) | payer OTHER, SELFPAY ==
[2023-01-05 11:10] LABS: Rheumatoid Factor 13.4 IU/mL (<15.0)
[2023-01-05 11:16] LABS: C Reactive Protein 1.68 mg/dL (< or = 0.50)
[2023-01-05 11:36] LABS: Erythrocyte Sedimentation Rate 6 MM/HR (0-15)
[2023-01-07 16:13] LABS: Anti Nuclear Antibody Screen NEGATIVE (NEGATIVE)
== END 2023-01-05 10:11 | disposition home or self-care (01) ==
LOC: HO.LAB 10:10
PROVIDERS: PCP Internal Medicine; Visit Provider Physical Medicine & Rehabilitation
DX: M13.0 Polyarthritis, unspecified (principal)
CPT/HCPCS: 36415; 85652; 86038; 86140; 86431

== ENCOUNTER 2023-02-16 09:39 | Outpatient (REF) | payer OTHER, SELFPAY ==
--- NOTE | ~2023-02-16 | XR_ITS ---
EXAMINATION: XR CERVICAL SPINE CLINICAL INFORMATION: Cervicalgia COMPARISON: None available. TECHNIQUE: 4 views of the cervical spine were obtained. FINDINGS: No acute visible fracture or dislocation. Mild multilevel degenerative changes disc space narrowing, osteophyte formation, and lower lumbar spine facet arthropathy. Visualized dens is intact. Lateral masses are symmetric. Vertebral body heights and disc spaces are otherwise maintained. Prevertebral soft tissues are unremarkable. Posterior elements are intact. Paraspinal soft tissues are unremarkable. Visualized portions of the upper chest are unremarkable. XR/XR cervical spine 3V IMPRESSION: 1. No acute visible fracture or dislocation. 2. Mild multilevel degenerative changes.
== END 2023-02-16 09:40 | disposition home or self-care (01) ==
LOC: HO.XRAY 09:39
PROVIDERS: Visit Provider Physical Medicine & Rehabilitation
DX: M54.2 Cervicalgia (principal)
CPT/HCPCS: 72040

== ENCOUNTER → 2023-02-23 09:05 | Outpatient (REF) | payer OTHER, SELFPAY ==
--- NOTE | 2023-02-23 09:08 | CA_ITS ---
Transthoracic Echocardiogram Patient (Last, First, Middle): Jaya Finley M Gender: Male Date of : 1965 Age: 57 Procedure Date: 02/23/2023 Procedure Type: Transthoracic Echocardiogram Location: OP Height: 175.26 cm Weight: 89.81 kg BSA: 2.06 m2 Heart Rate: bpm BP: 120 / 70 mmHg Label Press Operator: FAUSTO/JUSTICE Referring MD: Bobbi MORALESC Cotton Machine Operator: Grant Kee MD Symptoms: I25.10 - Atherosclerotic heart disease of [place] coronary artery without... Study Quality: Adequate ECG Rhythm: Sinus bradycardia with PVC Conclusions: - 1. Normal LV ejection fraction with impaired relaxation filling pattern 2. Normal cardiac valvular Dopplers 3. Upper limits of normal ascending aortic size at 3.5 cm 4. No gross pericardial effusion Findings Left Ventricle Normal left ventricular size, thickness, and systolic function. The visually estimated ejection fraction is between 55-60%. Spectral Doppler is indicative of an impaired relaxation filling pattern. E/E prime ratio is between 8 and 15 consistent with indeterminate filling pressures. Peak GLS is -18.3%, which is within normal limits. Right Ventricle Normal right ventricular cavity size and systolic function. Atria Both atria are normal in size. There is no evidence of interatrial shunt. Aortic Valve Normal aortic valve structure and function. There is no aortic valve stenosis. There is no aortic valve regurgitation. Mitral Valve Normal mitral valve structure and function. There is trace mitral valve regurgitation. There is no mitral valve stenosis. Pulmonic Valve The pulmonic valve is likely normal. Tricuspid Valve Normal tricuspid valve structure. Tricuspid regurgitation envelope is inadequate for calculation of right ventricular systolic pressure. Normal right atrial pressure. Great Vessels The pulmonary artery was not well visualized. Venous The inferior vena cava is normal in size and collapses greater than 50% with inspiration. Pericardium/Pleural There is no evidence of pericardial effusion. Prior Study Comparison No significant change compared to prior study dated: 05/20/2021. Measurements 2D Linear Measurements IVSd: 0.90 0.6-0.9/0.6-1.0 cm LVIDd: 4.81 3.9-5.3/4.2-5.9 cm LVIDd Index: 2.33 2.4-3.2/2.2-3.1 cm/m2 LVIDs: 1.93 2.0-3.6 cm LVPWd: 1.05 0.7-1.1 cm LA Diam: 3.80 2.7-3.8/3.0-4.0 cm LAIDs Index: 1.84 1.5-2.3 cm/m2 LV Mass: 206.11 67-162/88-224 g LV Mass Index: 100.05 43-95/49-115 g/m2 LVOT Diam: 2.20 3.0+(-)1.3 cm 2D Systolic Function EF 4C: 58.10 >55% EF 2C: 59.00 >55% EF BiP: 57.00 >55% Mitral Valve MV Pk E: 0.92 MV PK A: 0.96 MV Decel Time: 221.00 E/A: 1.00 E'Lateral: 10.70 E'Medial: 7.72 E/E' Med: 11.90 E/E' Lat: 8.60 PHT: 65.00 MVA PHT: 3.38 Decel Jerauld: 4.15 Aortic Valve AoV Pk Paras: 1.96 AoV Mn Paras: 1.27 AoV VTI: 0.40 AoV Pk Grad: 15.00 Aov Mn Grad: 7.00 MICHELLE Cont.VTI: 2.30 LVOT LVOT Pk Paras: 1.17 LVOT Mn Paras: 0.71 LVOT VTI: 0.24 LVOT Pk Grad: 5.00 LVOT Mn Grad: 2.00 LVOT Diam: 2.20 LVOT Area: 3.80 Diastolic Function MV Pk E: 0.92 MV Pk A: 0.96 E/A: 1.00 E'Medial: 7.72 E/E' Med: 11.90 E' Laterial: 10.70 E/E' Lat: 8.60 Right Ventricle TAPSE (mm): 21.40 TVS' Paras: 14.90 Tricuspid Valve RA Press: 3.00 Great Vessels Aorta Sinus of Valsalva: 3.35 2.0-3.[address] Ridge: 2.61 1.7-3.4 cm Ao Asc: 3.50 2.1-3.4 cm Ao Arch: 3.10 Updated in Other Vendor System with Status of Final Grant Kee MD electronically signed on 02/23/2023 3:16:55 PM with status of Final
== END ==
LOC: HO.CARD 09:05
PROVIDERS: PCP Internal Medicine; Visit Provider Nurse Practitioner Family
DX: I25.10 Atherosclerotic heart disease of native coronary artery without angina pectoris (principal); Z95.5 Presence of coronary angioplasty implant and graft
CPT/HCPCS: 93306; 93356

== ENCOUNTER → 2023-02-23 09:08 | Outpatient (BNV) | payer OTHER, SELFPAY | PROVIDERS: PCP Internal Medicine; Visit Provider Internal Medicine Cardiovascular Disease | DX: I25.10 Atherosclerotic heart disease of native coronary artery without angina pectoris (principal); Z95.5 Presence of coronary angioplasty implant and graft | CPT/HCPCS: 93306 ==

== ENCOUNTER → 2023-02-24 07:49 | Outpatient (REF) | payer OTHER, SELFPAY ==
--- NOTE | ~2023-02-24 | NM_ITS ---
Exercise Myocardial perfusion study Indication: Atherosclerotic heart disease with chest pain to evaluate for myocardial ischemia Technique: The patient was brought in for an exercise perfusion study on 02/24/2023. Patient performed exercise as per Lawrence protocol and was injected 30 mCi of sestamibi was given intravenously one target HR was achieved. Images were obtained using the SPECT gamma camera interlaced with the gating device. Images were obtained in supine position. Resting perfusion study was performed on 03/01/2023. Patient was administered 30 mCi of sestamibi intravenously at rest. Images were then obtained in supine position. Images obtained with and without CT attenuation. Total DLP 112 mGy-cm Images were processed with the software and compared side to side in short axis, horizontal long axis and vertical long axis views. Findings: The stress perfusion study showed non attenuated as well as attenuated corrected images show normal uptake of radiotracer in all segments of LV myocardium. The gated study shows normal LV systolic function with calculated LVEF of 55%. LV cavity is normal in size. The gated study shows normal systolic wall thickening and contraction of all segments. There is no transient ischemic dilation. Resting study shows no change in perfusion pattern compared to stress perfusion study. Gating at rest reveals normal systolic wall motion with ejection fraction at 56%. The findings are consistent with normal myocardial perfusion. NM/NM cardiolite stress test Impression: 1. Normal myocardial perfusion 2. Gated LVEF is T5 percent 3. Transient ischemic dilatation not present Stress EKG is negative for ischemia
--- NOTE | 2023-02-24 07:51 | CA_ITS ---
Acquisition Time: 2023-02-24 08:08:02 Total Exercise Time: 00:06:45 Test Indications: CP Medications: SEE H Protocol: SULAIMAN Max HR: 187 BPM 116% of Pred: 161 BPM Max BP: 170/084 mmHG Max Work Load: 7.3 METS Exercise stress test exercise 6 min 45 sec of Sulaiman protocol (stage 4 reduced speed and incline) 95% MPHR and jumped to 114% after treadmill stopped, with 1/10 chronic chest pressure mid chest, increased to 3/10 ast peak, mild SOB, with isolated PVCs, with normotensive response to exericse, without EKG changes. Chest pain resolved to baseline with rest. Nuclear images pending. Test reviewed with Dr. Weir. Referred By: Bobbi Leon Overread By: Urmila Perez
== END ==
LOC: HO.CARD 07:49
PROVIDERS: PCP Internal Medicine; Visit Provider Nurse Practitioner Family
DX: R07.2 Precordial pain (principal); I25.10 Atherosclerotic heart disease of native coronary artery without angina pectoris; Z95.5 Presence of coronary angioplasty implant and graft
CPT/HCPCS: 78452; 93017; A9500

== ENCOUNTER → 2023-02-24 07:51 | Outpatient (BNV) | payer OTHER, SELFPAY | PROVIDERS: PCP Internal Medicine; Visit Provider Nurse Practitioner | DX: I25.10 Atherosclerotic heart disease of native coronary artery without angina pectoris (principal); Z95.5 Presence of coronary angioplasty implant and graft | CPT/HCPCS: 78452; 93016; 93018 ==

== ENCOUNTER 2023-04-07 14:50 | Outpatient (AMB) | payer OTHER, SELFPAY ==
[2023-04-07 14:58] VITALS: BP 130/88; PULSE 67; BMI 29.6
--- NOTE | 2023-04-07 14:58 | A.OFFVIS_ITS ---
Intake Vital Signs 04/07/23 14:58 Height 5 ft 8 in Weight 194 lb 14.218 oz BMI 29.6 BP 130/88 Blood Pressure Location Lt brachial Position Sitting Pulse 67 Intake Visit Reasons: 1 yr f/up Intake Note: 1 year follow up Computer Security Manager Required: No Accompanied by: Self / Same As Patient Allergies ofloxacin [From Floxin] Allergy (Unknown, Verified 04/07/23 14:59) UNKNOWN prednisone [Prednisone] Allergy (Unknown, Verified 04/07/23 14:59) CONFUSION Medication List - Last Reconciled 04/07/23 by German Marinelli MD aspirin 81 mg PO DAILY atorvastatin 80 mg PO BEDTIME epinephrine 0.3 mg IM ONCE metoprolol tartrate 50 mg PO BID HPI HPI Comments History of Present Illness Details Jaya returns for follow-up regarding coronary artery disease. He had a non ST elevation myocardial infarction in 2014. Then received drug-eluting stent to circumflex. He also had indeterminate lesions in other vessels but not intervened upon. Since last seen, generally doing well. No new complaints. No angina or in fact anything along those lines. 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 Review of Systems Const All systems reviewed & are unremarkable except as noted in HPI and below Reports as per HPI and Reports no additional complaints Eyes Reports as per HPI and Denies no additional complaints ENT Denies no additional complaints and Reports as per HPI Card Reports as per HPI, Reports no additional complaints, Denies acrocyanosis, Denies chest pain, Denies leg edema, Denies lightheadedness, Denies palpitations and Denies dyspnea Resp Reports as per HPI, Denies no additional complaints and Denies dyspnea GI Reports as per HPI and Denies no additional complaints Reports no additional complaints and Reports as per HPI Musc Reports no additional complaints and Reports as per HPI Skin/Breast Reports system reviewed and no additional complaints, except as documented Neuro Reports no additional complaints and Reports as per HPI Psych Reports no additional complaints and Reports as per HPI Endo Reports no additional complaints, Reports as per HPI and Denies palpitations Kenneth/Lymph Reports no additional complaints and Reports as per HPI Aller/Immun Reports no additional complaints and Reports as per HPI Physical Exam Vital Signs: Last Vital Signs Pulse 67 04/07/23 14:58 BP 130/88 04/07/23 14:58 BMI result Body Mass Index 29.6 Const General: comfortable and no acute distress Orientation/consciousness: patient oriented x3 HEENT Other: Unremarkable Head: Yes normal to inspection Neck Neck: Yes normal visual inspection Chest Chest palpation & inspection: normal inspection of the chest Resp Auscultation: clear to auscultation bilaterally Cardio Palpation: normal PMI Heart sounds: S1 normal heart sound present, S2 normal heart sound present, no gallops, no murmurs and no rubs GI Palpation (GI): Soft to palpation Back/Spine/Pelvis Other: unremarkable Skin General skin exam: no rashes or lesions noted Neuro General: patient oriented x3 Extrem General: Yes normal to inspection Psych Mental Status: mental status grossly normal Assessment & Plan Assessment & Plan (1) Atherosclerotic cardiovascular disease: Code(s): I25.10 - Atherosclerotic heart disease of [place] coronary artery without angina pectoris (2) Essential hypertension: Code(s): I10 - Essential (primary) hypertension (3) Other and unspecified hyperlipidemia: Code(s): E78.5 - Hyperlipidemia, unspecified Plan Recent cardiac studies reviewed. Echocardiogram with LVEF of 55-60%; normal peak global longitudinal strain and otherwise unremarkable. Exercise stress myocardial perfusion imaging study was unremarkable at 7.3 Mets. He had 1/10 baseline chest pain that increased to 3/10 with exercise without EKG changes or perfusion abnormalities. Overall, continue management for stable CAD. Continue long-term aspirin. Continue beta-blockers. Numerous times we have discussed the interaction between epinephrine/beta-blockers but he absolutely does not want any changes. He is well aware of the fact that epinephrine used for anaphylaxis may not work when use beta-blockers. With regard to statins, continue atorvastatin. Last LDL 82 mg/dL with triglycerides of 166 mg/dL. We will see him back in 1 year. In the interim, he will call with concerns. Coding Level of Care Code Est Pt Level 4 (39611) Diagnoses Atherosclerotic cardiovascular disease I25.10 Essential hypertension I10 Other and unspecified hyperlipidemia E78.5
== END 2023-04-07 15:26 | disposition home or self-care (01) ==
PROVIDERS: PCP Internal Medicine; Visit Provider Internal Medicine
DX: I25.10 Atherosclerotic heart disease of native coronary artery without angina pectoris (principal); I10 Essential (primary) hypertension; E78.5 Hyperlipidemia, unspecified
CPT/HCPCS: 99214

== ENCOUNTER → 2023-04-07 14:50 | Outpatient (BNVA) | payer OTHER, SELFPAY | PROVIDERS: PCP Internal Medicine; Visit Provider Internal Medicine ==

== ENCOUNTER 2023-04-22 11:26 | Outpatient (REF) | payer OTHER, SELFPAY ==
[2023-04-22 12:27] LABS: Alanine Aminotransferase 27 U/L (0-40); Albumin Level 4.4 g/dL (3.5-5.0); Alkaline Phosphatase 78 U/L (39-117); Aspartate Amino Transferase 19 U/L (5-37); Bilirubin Direct 0.4 mg/dL (0.0-0.5); Bilirubin Total 1.5 mg/dL (0.0-1.0); Cholesterol 174 mg/dL (<200); HDL Cholesterol 53 mg/dL (>40); LDL Cholesterol Calculated 94 mg/dL (<100); Total Protein 6.8 g/dL (6.5-8.0); Triglycerides 135 mg/dL (<150)
[2023-04-22 14:09] LABS: Reflex LDLD? No
== END 2023-04-22 11:27 | disposition home or self-care (01) ==
LOC: HO.LNP 11:26
PROVIDERS: Visit Provider Internal Medicine
DX: E78.00 Pure hypercholesterolemia, unspecified (principal)
CPT/HCPCS: 80061; 80076

== ENCOUNTER 2023-06-24 06:58 | Outpatient (REF) | payer OTHER, SELFPAY ==
--- NOTE | ~2023-06-24 | XR_ITS ---
EXAMINATION: XR ANKLE, LEFT CLINICAL INFORMATION: Pain in left ankle and joints of left foot. COMPARISON: 04/13/2012. TECHNIQUE: 3 views of the left ankle. FINDINGS: The ankle mortise is preserved. Alignment maintained. No displaced fracture appreciated. Moderate joint effusion with soft tissue swelling at the ankle XR/XR ankle LT min 3V IMPRESSION: 1. Moderate joint effusion with soft tissue swelling at the ankle. No displaced fracture appreciated. 2. Recommend follow-up imaging in 10-14 days if fracture is suspected.
== END 2023-06-24 06:59 | disposition home or self-care (01) ==
LOC: HO.XRAY 06:58
PROVIDERS: PCP Internal Medicine; Visit Provider Physical Medicine & Rehabilitation
DX: M25.572 Pain in left ankle and joints of left foot (principal)
CPT/HCPCS: 73610

== ENCOUNTER 2023-10-11 11:01 | Outpatient (REF) | payer OTHER, SELFPAY ==
[2023-10-11 11:05] LABS: MANUAL DIFF FLAG NO
[2023-10-11 12:35] LABS: Basophils Percent Auto 0.5 % (0-2); Eosinophils Absolute Auto 0.2 X10*3/uL (0.0-0.4); Hemoglobin 16.5 g/dl (14.0-18.0); Lymphocytes Percent Auto 37.2 % (20-40); Mean Corpuscular HGB Conc 35.1 g/dl (31.0-36.0); Mean Corpuscular Hemoglobin 33.5 pg (27.0-33.0); Mean Corpuscular Volume 95.3 fL (80.0-98.0); Mean Platelet Volume 10.4 fL (9.4-12.4); Monocytes Absolute Auto 0.5 X10*3/uL (0.1-1.2); Monocytes Percent Auto 9.1 % (2-11); Neutrophils Absolute Auto 2.7 x10*3/uL (2.0-8.3); Neutrophils Percent Auto 49.2 % (45-73); Platelet Count 206 X10*3/uL (160-400); Red Blood Count 4.93 X10*6/uL (4.60-5.80); Red Cell Distribution Width 13.2 % (11.0-16.0); White Blood Count 5.5 X10*3/uL (4.8-10.8)
[2023-10-11 12:48] LABS: Alanine Aminotransferase 31 U/L (0-40); Albumin Level 4.5 g/dL (3.5-5.0); Alkaline Phosphatase 76 U/L (39-117); Anion Gap 12 (12-20); Aspartate Amino Transferase 20 U/L (5-37); Bilirubin Total 1.4 mg/dL (0.0-1.0); Blood Urea Nitrogen 6 mg/dL (9-16); Calcium 9.6 mg/dL (8.4-10.2); Carbon Dioxide 26 mmol/L (22-29); Chloride 104 mmol/L (96-108); Cholesterol 159 mg/dL (<200); Estimated Glomerular Filt Rate > 60; Glucose Fasting 109 mg/dL (60-99); HDL Cholesterol 47 mg/dL (>40); LDL Cholesterol Calculated 88 mg/dL (<100); Potassium 4.1 mmol/L (3.3-5.1); Sodium 138 mmol/L (135-145); Total Protein 6.8 g/dL (6.5-8.0); Triglycerides 122 mg/dL (<150)
[2023-10-11 12:49] LABS: Appearance Urine Clear; Color Urine Yellow; Glucose Urine UA Negative (Negative); Leukocyte Esterase Urine Negative (Negative); Nitrite Urine Negative (Negative); Specific Gravity - Urine 1.015 (1.005-1.025); Urine Blood Negative (Negative); Urine Ketones Negative (Negative); Urine Protein Negative (Neg-Trace)
[2023-10-11 12:53] LABS: Bacteria Urine None Seen (None Seen); Hyaline Casts Urine 0-2 /LPF (0-2); RBC Urine 0-2 /HPF (0-2); Squamous Epithelial Cell Urine 0-2 /HPF (0-2); WBC Urine 0-5 /HPF (0-5)
[2023-10-11 13:03] LABS: PSA,Total (Free>4and<10) 0.47 ng/mL (0.00-4.00)
== END 2023-10-11 11:02 | disposition home or self-care (01) ==
LOC: HO.LNP 11:01
PROVIDERS: Visit Provider Internal Medicine
DX: Z00.00 Encounter for general adult medical examination without abnormal findings (principal); I10 Essential (primary) hypertension; E78.00 Pure hypercholesterolemia, unspecified; Z12.5 Encounter for screening for malignant neoplasm of prostate
CPT/HCPCS: 80053; 80061; 81001; 84153; 85025

== ENCOUNTER 2023-10-21 07:36 | Outpatient (REF) | payer OTHER, SELFPAY ==
--- NOTE | ~2023-10-21 | US_ITS ---
EXAMINATION: US ABDOMEN COMPLETE CLINICAL INFORMATION: Left flank pain. COMPARISON: CT abdomen and pelvis January 18, 2017. Ultrasound abdomen August 30, 2008 and December 01, 2006. TECHNIQUE: Real-time imaging of the abdominal viscera. Technically limited study secondary to bowel gas. FINDINGS: PANCREAS: Obscured by bowel gas ABDOMINAL AORTA: Normal in caliber in the visualized proximal and distal portions. Mid abdominal aorta is obscured by bowel gas. INFERIOR VENA CAVA: Visualized portions are normal. LIVER: The liver is normal in size. The liver contour is normal. Parenchymal echogenicity is normal. No focal hepatic lesion. There is no intrahepatic biliary duct dilatation seen. Color Doppler imaging and Doppler spectral analysis shows patent main portal vein with normal hepatopedal venous flow spectrum. GALLBLADDER: Normal. The gallbladder is physiologically distended without evidence of stones, sludge, polyps, wall thickening or pericholecystic fluid. COMMON BILE DUCT: Normal in caliber measuring 0.23 cm in diameter. RIGHT KIDNEY: Normal. No hydronephrosis. No renal calculi or focal parenchymal lesions. The kidney measures 10.6 cm in maximum dimension. LEFT KIDNEY: Prominent hypoechoic renal pyramids are present. Multiple scattered echogenic foci are present, some of them appear to be tram track shaped, suggestive of intrarenal atherosclerotic calcifications. No hydronephrosis. No renal calculi or focal parenchymal lesions. The kidney measures 11.5 cm in maximum dimension. SPLEEN: Normal. The spleen measures 12.6 cm in maximum dimension. FREE FLUID: None. US/US abdomen complete IMPRESSION: 1. No evidence of gallstones or hepatobiliary duct dilatation. 2. Unchanged Prominent hypoechoic left renal pyramids are present. Unchanged Multiple scattered echogenic foci are present, some of them appear to be tram track shaped, suggestive of intrarenal atherosclerotic calcifications. 3. Unchanged, No evidence of hydronephrosis. 4. Nonvisualization of pancreas and mid abdominal aorta due to bowel gas. Electronically signed by: Hermelinda Zhao MD 11/11/2023 11:10 AM EDT
== END 2023-10-21 07:37 | disposition home or self-care (01) ==
LOC: HO.US 07:36
PROVIDERS: PCP Internal Medicine; Visit Provider Internal Medicine
DX: R10.9 Unspecified abdominal pain (principal)
CPT/HCPCS: 76700

== ENCOUNTER 2023-10-25 23:17 | Inpatient (IN) | payer OTHER, SELFPAY ==
--- NOTE | ~2023-10-25 | CT_ITS ---
EXAMINATION: CT HEAD WITHOUT CONTRAST CLINICAL INFORMATION: Altered mental status. COMPARISON: None available. TECHNIQUE: Contiguous axial imaging was performed from the skull base to vertex without intravenous administration of contrast. This CT examination was performed using dose optimization techniques as appropriate, variously including the following: *Automated exposure control *Adjustment of mA and/or kV according to patient size (this includes techniques or standardized protocols for targeted exams where dose is matched to indication/reason for exam; i.e. extremities or head) *Use of iterative reconstruction technique DLP: 712 mGy-cm FINDINGS: The lateral, third and fourth ventricles are normally outlined. The cortical sulci and basal cisterns are normally out well. There is mild bilateral periventricular and central white matter diminished attenuation. There is no acute territorial defect, hemorrhage or midline shift. The extra-axial spaces are unremarkable. Calvarium/scalp: Intact. Maxillofacial sinuses and mastoids: Clear as visualized. CT/CT head/brain wo IV con IMPRESSION: No acute intracranial process seen.
[2023-10-26] VITALS (7 sets, daily range): BP systolic 134–177; BP diastolic 91–114; PULSE 61–73; RESP 16–18; TEMP 36.3–36.6; O2SAT 97–98; BMI 26.5; BMI 30.2
[2023-10-26 00:25] LABS: MANUAL DIFF FLAG NO
[2023-10-26 00:26] LABS: Basophils Percent Auto 0.4 % (0-2); Eosinophils Absolute Auto 0.1 X10*3/uL (0.0-0.4); Eosinophils Percent Auto 1.6 % (0-4); Hematocrit 42.5 % (42.0-52.0); Hemoglobin 15.7 g/dl (14.0-18.0); Imm Gran Abs Auto 0.01 X10*3/uL (0.00-0.03); Imm Gran Pct Auto 0.1 % (0.0-0.4); Lymphocytes Absolute Auto 1.4 X10*3/uL (1.2-4.9); Lymphocytes Percent Auto 21.4 % (20-40); Mean Corpuscular HGB Conc 36.9 g/dl (31.0-36.0); Mean Corpuscular Hemoglobin 33.5 pg (27.0-33.0); Mean Corpuscular Volume 90.8 fL (80.0-98.0); Mean Platelet Volume 9.5 fL (9.4-12.4); Monocytes Absolute Auto 0.5 X10*3/uL (0.1-1.2); Monocytes Percent Auto 7.8 % (2-11); Neutrophils Absolute Auto 4.6 x10*3/uL (2.0-8.3); Neutrophils Percent Auto 68.7 % (45-73); Platelet Count 180 X10*3/uL (160-400); Red Blood Count 4.68 X10*6/uL (4.60-5.80); Red Cell Distribution Width 12.7 % (11.0-16.0); White Blood Count 6.7 X10*3/uL (4.8-10.8)
[2023-10-26 00:41] LABS: Alanine Aminotransferase 25 U/L (0-40); Albumin Level 4.8 g/dL (3.5-5.0); Alkaline Phosphatase 65 U/L (39-117); Anion Gap 17 (12-20); Aspartate Amino Transferase 18 U/L (5-37); Blood Urea Nitrogen 7 mg/dL (9-16); Calcium 9.8 mg/dL (8.4-10.2); Carbon Dioxide 19 mmol/L (22-29); Chloride 104 mmol/L (96-108); Creatinine Clr Calc Pharmacy 83.8; Estimated Glomerular Filt Rate > 60; Glucose Random 102 mg/dL (60-115); Potassium 3.8 mmol/L (3.3-5.1); Sodium 136 mmol/L (135-145); Total Protein 7.1 g/dL (6.5-8.0)
--- NOTE | 2023-10-26 01:13 | ED.GENADULT ---
HPI - General Adult General Chief complaint: General Medical Stated complaint: pain in lower back / thinks he was poisoned? Time Seen by Provider: 10/26/23 00:40 Source: patient Mode of arrival: ambulatory Limitations: no limitations History of Present Illness ED Provider: Dr. Viki Ruiz HPI narrative: Patient comes to the emergency room stating that his head is about to explode. Patient states that he has been poisoned by a Jainism that has been in his apartment without his permission. Then the Jainism moved inside of his head. The Jainism inside of his head is telling the patient that he is homosexual, that he is going to . Patient states that he has been having very heated argument in his head. Patient states that he is terrified that the Jainism knows everything that he does, this entity is hearing to our talking at this moment. Patient denies SI or HI Related Data Home Medications ?Medication ?Instructions ?Recorded ?Confirmed spironolactone 50 mg tablet 50 mg PO DAILY 10/26/23 10/26/23 Previous Rx's ?Medication ?Instructions ?Recorded metoprolol tartrate 50 mg tablet 50 mg PO BID #180 tabs 03/22/23 atorvastatin 80 mg tablet 80 mg PO BEDTIME #90 tabs 05/30/23 Allergies Allergy/AdvReac Type Severity Reaction Status Date / Time ofloxacin [From Floxin] Allergy Unknown UNKNOWN Verified 10/26/23 00:14 prednisone [Prednisone] Allergy Unknown CONFUSION Verified 10/26/23 00:14 Review of Systems Review of Systems: Constitutional : No Weight loss, No Fever, No Chills, No Night Sweats, No Fatigue, No Malaise ENT/Mouth : No Hearing loss, No Ear Pain, No Nasal Congestion, No Sinus Pain, No Hoarseness, No sore throat, No Rhinorrhea, No Swallowing Difficulty Eyes: No Eye Pain, No Swelling, No Redness, No Foreign Body, No Discharge, No Vision Changes Cardiovascular : No Chest Pain, No SOB, No Dyspnea on Exertion, No Orthopnea, No Edema, No Palpitations Respiratory : No Cough, No Sputum, No Wheezing, No Smoke Exposure, No Dyspnea Gastrointestinal : No Nausea, No Vomiting, No Diarrhea, No Constipation, No abdominal Pain, No Hematochezia, No Melena Genitourinary : no irregular bleeding, No Dysuria, No Urinary Frequency, No Hematuria, No Urinary Incontinence, No Urgency, No Flank Pain, No Urinary Flow Changes, No Hesitancy Musculoskeletal : No joint pain, No Myalgias, No Joint Swelling Skin : No Skin Lesions, No rash Neuro : No Weakness, No Numbness, No Paresthesias, No Loss of Consciousness, No Dizziness, No Headache Psych : Denies anxiety depression SI or HI, admits to hearing voices Heme/Lymph: No Bruising, No Bleeding,No Lymphadenopathy Endocrine : No Polyuria, No Polydipsia, No Temperature Intolerance [facility] Past Medical History Medical History Other and unspecified hyperlipidemia Essential hypertension Atherosclerotic cardiovascular disease Surgical History History of heart artery stent Family History Family History Father Lung cancer Mother Alzheimer disease CVD (cardiovascular disease) Diabetes Social History Social History Alcohol intake: current Alcohol intake frequency: 3 or more drinks per day Alcohol type: beer Patient Tobacco Use Status: Former Tobacco user Tobacco use type: Cigarette Years Smoked: 15 +/- Advance Directives: No Advance Directives Information Provided: Yes Do you have a plan to hurt others: No Plan Current occupational status: employed 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 Oriented X3. No acute distress. Eyes: Pupils equal, round and reactive to light. ENT: Pharynx normal. Neck: Normal inspection. Neck supple. No lymph nodes noted. No crepitus CVS: Normal heart rate and rhythm. Pulses normal. Normal S1 and S2 Respiratory: No respiratory distress. Breath sounds normal. No Wheezing. No rales Abdomen: Soft and nontender. No rigidity. No distention. Skin: Skin warm and dry. Normal skin color. Normal skin turgor. Extremities: No lower extremity edema. No Lacerations. No Rash Neuro: Oriented X 3. No motor deficit. No sensory deficit. Moving all extremities. No slurred speech. CN 2 through 12 grossly intact Psych: calm, cooperative, normal affect, patient convinced that the voice in his head is real Course Course Course Narrative: -patient is not SI or HI. However, patient is significantly paranoid -patient is on a Section 12 -physician observation started at 01:00 Medical Decision Making Medical Decision Making MDM Narrative: -my interpretation of labs, normal hematology and chemistry, T bili chronically elevated -patient is now on a Section 12 -urinalysis pending - Differential Diagnosis Differential Diagnoses: The differential diagnosis associated with the presentation includes (UTI, schizophrenia, bipolar disorder) Admission/Observation Consideration of admission/observation: Escalation of care including admission/observation considered (Patient is on a Section 12, likely to need inpatient level of care, CARE team pending) Lab Data 10/26/23 00:21 10/26/23 00:21 Labs: Lab Results 10/26/23 Range/Units 00:21 WBC 6.7 (4.8-10.8) X10*3/uL RBC 4.68 (4.60-5.80) X10*6/uL Hgb 15.7 (14.0-18.0) g/dl Hct 42.5 (42.0-52.0) % MCV 90.8 (80.0-98.0) fL MCH 33.5 H (27.0-33.0) pg MCHC 36.9 H (31.0-36.0) g/dl RDW 12.7 (11.0-16.0) % Plt Count 180 (160-400) X10*3/uL MPV 9.5 (9.4-12.4) fL Immature Gran % (Auto) 0.1 (0.0-0.4) % Neut % (Auto) 68.7 (45-73) % Lymph % (Auto) 21.4 (20-40) % [place] % (Auto) 7.8 (2-11) % Eos % (Auto) 1.6 (0-4) % Baso % (Auto) 0.4 (0-2) % Lymph # (Auto) 1.4 (1.2-4.9) X10*3/uL [place] # (Auto) 0.5 (0.1-1.2) X10*3/uL Eos # (Auto) 0.1 (0.0-0.4) X10*3/uL Baso # (Auto) 0.0 (0.0-0.2) X10*3/uL Abs Immat Gran (auto) 0.01 (0.00-0.03) X10*3/uL Absolute Neuts (auto) 4.6 (2.0-8.3) x10*3/uL Absolute Nucleated RBC 0.000 (0.0-0.012) X10*3/uL Nucleated RBC % (auto) 0.0 (0.0-0.2) /100WBC Sodium 136 (135-145) mmol/L Potassium 3.8 (3.3-5.1) mmol/L Chloride 104 (96-108) mmol/L Carbon Dioxide 19 L (22-29) mmol/L Anion Gap 17 (12-20) BUN 7 L (9-16) mg/dL Creatinine 0.98 (0.5-1.4) mg/dL Estim Creat Clear Calc 83.8 Estimated GFR > 60 Random Glucose 102 (60-115) mg/dL Calcium 9.8 (8.4-10.2) mg/dL Total Bilirubin 2.0 H (0.0-1.0) mg/dL AST 18 (5-37) U/L ALT 25 (0-40) U/L Alkaline Phosphatase 65 (39-117) U/L Total Protein 7.1 (6.5-8.0) g/dL Albumin 4.8 (3.5-5.0) g/dL Critical Care Time Critical Care Time Critical Care Time: Yes Total Critical Care Time: 30 Attestation: I have personally provided critical care time. Time includes review of lab data, radiology results, discussion with consultants, and monitoring for potential decompensation. Intervention performed as documented. Discharge Plan Discharge Clinical Impression: Delusional ideas, Paranoid behavior Patient Disposition: Still a Patient Prescriptions: No Action metoprolol tartrate 50 mg tablet 50 mg PO BID Qty: 180 3RF atorvastatin 80 mg tablet 80 mg PO BEDTIME Qty: 90 3RF aspirin 81 mg tablet,delayed release (DR/EC) 81 mg PO DAILY epinephrine 0.3 mg/0.3 mL auto-injector 0.3 mg IM ONCE Print Language: Faroese
[2023-10-26 01:54] LABS: Ethanol < 10 mg/dL
[2023-10-26 02:03] LABS: Amphetamine Screen Urine Not Detected (Not Detect); Barbiturates, Urine Not Detected (Not Detect); Benzodiazepines Screen Urine Not Detected (Not Detect); Buprenorphine Scr Not Detected (Not Detect); Cannabinoid Screen Urine Not Detected (Not Detect); Cocaine Screen Urine Not Detected (Not Detect); Fentanyl, urine Not Detected (Not Detect); Methadone Screen, Urine Not Detected (Not Detect); Opiate Screen Urine Not Detected (Not Detect); Oxycodone Screen Urine Not Detected (Not Detect); Phencyclidine Screen Urine Not Detected (Not Detect)
[2023-10-26 02:22] LABS: Appearance Urine Clear; Color Urine Yellow; Glucose Urine UA Negative (Negative); Leukocyte Esterase Urine Negative (Negative); Nitrite Urine Negative (Negative); PH 5.5 (5.0-9.0); Urine Blood Negative (Negative); Urine Ketones Trace mg/dL (Negative); Urine Protein Negative (Neg-Trace)
[2023-10-26 03:05] LABS: Bacteria Urine None Seen (None Seen); Hyaline Casts Urine 0-2 /LPF (0-2); RBC Urine 0-2 /HPF (0-2); Squamous Epithelial Cell Urine 0-2 /HPF (0-2); WBC Urine 0-5 /HPF (0-5)
--- NOTE | 2023-10-26 05:36 | PC.NURSE ---
Patient was up whole night, napped for an hour max, no distress observed/reported, endorsing AH, med rec completed/pending provider's approval, VSS, CT of head negative, disposition per care team is section -12 inpatient bed search, will continue to monitor
[2023-10-26] MEDS: Spironolactone 25 MG TABLET 50 MG PO (06:16)
--- NOTE | 2023-10-26 08:03 | PC.NURSE ---
pt requesting to go home quickly to let my dog out, this t/w attempted to contact daughter regarding pet care but was unable to make contact. pt expressed frustration at not being able to leave and stated that he would come right back. denies AH this morning after working hard overnight and finding the most quiet area in the hospital outside of the nursing station. pt expressed that he hoped the voices where a medical issue and not something bad, and talked about how it would be concerning to return home and find that someone was getting into his house. pt report that he was supposed to have an appt w [facility] regarding chronic back pain - pt given phone number to call and reschedule appt.
--- NOTE | 2023-10-26 08:55 | PC.NURSE ---
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 per daughter, reassure pt that dog will be taken care of.
--- NOTE | 2023-10-26 09:03 | PC.NURSE ---
pt refuses EKG. States my heart is not the problem
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
--- NOTE | 2023-10-26 10:29 | PC.NURSE ---
pts daughter is here visiting wishing to speak with care team
--- NOTE | 2023-10-26 10:41 | PC.NURSE ---
Pts daughter taking the house house [facility] from [facility] in order to take care of the pets at home. Pt states she will be returning in an hour
--- NOTE | 2023-10-26 11:00 | PC.NURSE ---
patient is refusing medication, he also continues to refuse the ekg
--- NOTE | 2023-10-26 11:01 | PC.NURSE ---
pt now wants his bp medication
[2023-10-26] MEDS: Metoprolol Tartrate 50 MG TABLET PO (11:06)
--- NOTE | 2023-10-26 13:41 | PC.NURSE ---
report given to floor
--- NOTE | 2023-10-26 13:50 | PC.NURSE ---
patient was offered PO medications for agitation/anxiety which he refused. this was refused in front of security and floor staff.
--- NOTE | 2023-10-26 15:33 | P.HPPS_ITS ---
[facility] Date of Service: 10/26/23 Chief Complaint: psychosis Sources of Information: patient interviewed, chart reviewed and crisis/core team assessment reviewed HPI Subjective Notes: Hill Warning and Section 12B Narrative: Patient is a 57-year-old male with no known history of psychiatric illness or past hospitalizations, with medical comorbidities including CAD, HLD, HTN who self presents to the emergency room wanting a head CT for ongoing headache. In the emergency room patient made paranoid and delusional statements such that there is a Hoahaoism in his head, observing things, saying upsetting things and poisoning him... Hearing voices coming out of the air conditioner... Patient was seen by care team who also observed paranoid delusional ideations and he was sent on a Section 12 a to M5 for psychiatric admission. On admission, patient was in good behavioral and impulse control and polite however upset that he was sent to the psychiatric unit saying he came in for head CT and has no idea why he was sent to Psychiatry. Patient articulates well and clearly says I am of no harm to myself or anyone else, that he has no history of any psychiatric illness, takes care of himself in his own apartment, does not want psychiatric treatment of any kind and that he wants to be discharged; he says if he has any further problems he can discuss it with his own PCP. He denies depression or anxiety other than recent anxiety from perceived persecution. Patient confirmed that he was hearing specific voices from the air conditioner, saying threatening things which he is finding very disturbing. Patient has little insight but after discussion was grudgingly willing to consider that perhaps he is misinterpreting what he is hearing, however he is pretty sure he is not paranoid in these are not delusions. Patient however says he has no plans of acting on this, has no ill will towards anyone, and he neighbors, no thoughts of hurting anyone and just wants to find answers and is grateful for negative head CT. Patient expresses thanks for underwriter mortgage loan listening to him and says that if he had not been forced to come the unit, feeling bamboozled, he would be more open to discussing this further with underwriter mortgage loan; however because he feels tricked (reporting he was sitting in the ED Pod all day, without anyone mentioning anything about psychiatric admission until all the sudden he was told he was being transported to the psych unit...which his daughter who was also present in ED corroborates...)...and now does not want to discuss it any further and insists on discharge. Patient gave underwriter mortgage loan permission to call his daughter who lives locally and is a therapist. Chief Creative Officer spoke with his daughter who lives in [place] and is also a therapist. She expresses concern that her father is having paranoid delusions with AH; however she fully agrees that he is not in any risk at all of harm to himself or others and never has been and that he takes care of himself just fine, living by himself in his apartment; she also fully agrees that while he would benefit from psychiatric treatment he does not require inpatient admission. She corroborates that her father has never had any psychiatric treatment in the past, never any SI or HI, paranoid thinking or AH and that this is new. That said, she reports she reports he always been somewhat hypomanic and with mildly pressured speech all of her life and this is his baseline. 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 and takes care of himself in the community Has supportive daughter who lives locally; also another daughter who lives in [place] Substance History: Denies Trauma History: Denies Diagnostics Vital Signs (24Hr): Vital Signs - 24 hr 10/26/23 00:09 10/26/23 06:07 10/26/23 06:16 Temperature 97.6 F Pulse Rate 67 66 Respiratory Rate 16 18 Blood Pressure 158/92 H 167/106 H 167/107 H Pulse Oximetry 98 97 Oxygen Delivery Method Room Air Room Air 10/26/23 11:06 10/26/23 11:14 10/26/23 14:36 Temperature 97.8 F 97.4 F Pulse Rate 62 62 73 Respiratory Rate 16 16 Blood Pressure 154/93 H 144/101 H 177/114 H Pulse Oximetry 98 98 Oxygen Delivery Method Room Air Room Air 10/26/23 15:28 Temperature Pulse Rate 61 Respiratory Rate Blood Pressure 134/91 H Pulse Oximetry Oxygen Delivery Method BMI result Body Mass Index 30.2 Labs 10/26/23 00:21 10/26/23 00:21 Labs: Laboratory Results - last 48 hr 10/26/23 10/26/23 10/26/23 00:21 01:34 02:11 WBC 6.7 RBC 4.68 Hgb 15.7 Hct 42.5 MCV 90.8 MCH 33.5 H MCHC 36.9 H RDW 12.7 Plt Count 180 MPV 9.5 Immature Gran % (Auto) 0.1 Neut % (Auto) 68.7 Lymph % (Auto) 21.4 Norton % (Auto) 7.8 Eos % (Auto) 1.6 Baso % (Auto) 0.4 Lymph # (Auto) 1.4 [place] # (Auto) 0.5 Eos # (Auto) 0.1 Baso # (Auto) 0.0 Abs Immat Gran (auto) 0.01 Absolute Neuts (auto) 4.6 Absolute Nucleated RBC 0.000 Nucleated RBC % (auto) 0.0 Sodium 136 Potassium 3.8 Chloride 104 Carbon Dioxide 19 L Anion Gap 17 BUN 7 L Creatinine 0.98 Estim Creat Clear Calc 83.8 Estimated GFR > 60 Random Glucose 102 Calcium 9.8 Total Bilirubin 2.0 H AST 18 ALT 25 Alkaline Phosphatase 65 Total Protein 7.1 Albumin 4.8 Urine Color Yellow Urine Appearance Clear Urine pH 5.5 Ur Specific [place] 1.010 Urine Protein Negative Urine Glucose (UA) Negative Urine Ketones Trace Urine Blood Negative Urine Nitrite Negative Ur Leukocyte Esterase Negative Urine RBC 0-2 Urine WBC 0-5 Ur Squamous Epith Cells 0-2 Urine Bacteria None Seen Hyaline Casts 0-2 Urine Opiates Screen Not Detected Ur Buprenorphine Scrn Not Detected Ur Oxycodone Screen Not Detected Urine Methadone Screen Not Detected Urine Fentanyl Screen Not Detected Ur Barbiturates Screen Not Detected Ur Phencyclidine Scrn Not Detected Ur Amphetamines Screen Not Detected U Benzodiazepines Scrn Not Detected Urine Cocaine Screen Not Detected U Marijuana (THC) Screen Not Detected Ethyl Alcohol < 10 Imaging Radiology Impressions: ITS Impressions Head CT 10/26/23 04:02 IMPRESSION: No acute intracranial process seen. Meds/Allergies Meds Home Medications ?Medication ?Instructions ?Recorded ?Confirmed ?Type spironolactone 50 mg tablet 50 mg PO DAILY 08/14/24 08/25/24 History ibuprofen 800 mg tablet 800 mg PO Q8H PRN Pain (Scale 11/06/23 11/06/23 History Score 1-3) Allergies Allergies Allergy/AdvReac Type Severity Reaction Status Date / Time ofloxacin [From Floxin] Allergy Unknown UNKNOWN Verified 11/06/23 02:42 prednisone [Prednisone] Allergy Unknown CONFUSION Verified 11/06/23 02:42 Mental Status Exam Mental Status Exam Narrative: Pt is alert and oriented; behavior is mildly hypomanic but cooperative, friendly and calm; patient is not in distress; dressed in casual attire with unkempt hair but adequate hygiene; mood is described as fine and affect congruent, somewhat constricted; eye contact appropriate; Speech is verbose and mildly pressured but normal volume and prosody; no psychomotor agitation/retardation present; thought process is organized and goal directed; Thought content is on being unfairly taken to psych unit; paranoid delusional thoughts; some mild grandiosity; denies any SI/HI. AH, but only at home; denies any since at the hospital Patients insight and judgment impaired but adequate Assessment & Plan Assessment & Plan (1) Bipolar disorder, unspecified: Status: Suspected Code(s): F31.9 - Bipolar disorder, unspecified Plan HPI: Patient is a 57-year-old male with no known history of psychiatric illness or past hospitalizations, with medical comorbidities including CAD, HLD, HTN who self presents to the emergency room wanting a head CT for ongoing headache. In the emergency room patient made paranoid and delusional statements such that there is a Hoahaoism in his head, observing things, saying upsetting things and poisoning him... Hearing voices coming out of the air conditioner... Patient was seen by care team who also observed paranoid delusional ideations and he was sent on a Section 12 a to M5 for psychiatric admission. On admission, patient was in good behavioral and impulse control and polite however upset that he was sent to the psychiatric unit saying he came in for head CT and has no idea why he was sent to Psychiatry. Patient articulates well and clearly says I am of no harm to myself or anyone else, that he has no history of any psychiatric illness, takes care of himself in his own apartment, does not want psychiatric treatment of any kind and that he wants to be discharged; he says if he has any further problems he can discuss it with his own PCP. He denies depression or anxiety other than recent anxiety from perceived persecution. Patient confirmed that he was hearing specific voices from the air conditioner, saying threatening things which he is finding very disturbing. Patient has little insight but after discussion was grudgingly willing to consider that perhaps he is misinterpreting what he is hearing, however he is pretty sure he is not paranoid in these are not delusions. Patient however says he has no plans of acting on this, has no ill will towards anyone, and he neighbors, no thoughts of hurting anyone and just wants to find answers and is grateful for negative head CT. Patient expresses thanks for underwriter mortgage loan listening to him and says that if he had not been forced to come the unit, feeling bamboozled, he would be more open to discussing this further with underwriter mortgage loan; however because he feels tricked (reporting he was sitting in the ED Pod all day, without anyone mentioning anything about psychiatric admission until all the sudden he was told he was being transported to the psych unit...which his daughter who was also present in ED corroborates...)...and now does not want to discuss it any further and insists on discharge. Patient gave underwriter mortgage loan permission to call his daughter who lives locally and is a therapist. Chief Creative Officer spoke with his daughter who lives in [place] and is also a therapist. She expresses concern that her father is having paranoid delusions with AH; however she fully agrees that he is not in any risk at all of harm to himself or others and never has been and that he takes care of himself just fine, living by himself in his apartment; she also fully agrees that while he would benefit from psychiatric treatment he does not require inpatient admission. She corroborates that her father has never had any psychiatric treatment in the past, never any SI or HI, paranoid thinking or AH and that this is new. That said, she reports she reports he always been somewhat hypomanic and with mildly pressured speech all of her life and this is his baseline. Impression/clinical reasoning: Patient does not meet criteria for involuntary commitment. Based on patient's presentation and his daughters collateral, It seems likely that patient has had subclinical hypomania (bipolar) for years which for some reason was recently exacerbated. Despite this exacerbation and the now presents of paranoid delusions and AH, patient remains otherwise organized in speech and behavior. He does not have any insight into paranoid delusions but is able to calmly, politely and logically discuss them and at this time, underwriter mortgage loan can not testify that they are otherwise significantly impairing his functioning or ability to take care of himself in the community. Patient decided to come to the hospital on his own to get a head CT out of concern for persistent headache; only while here did his psychiatric symptoms became known. And it is important to note that he has not caused any disturbance in the community or caused anyone alarm or concern that would prompt them call crisis or get him to the hospital (even his daughter who is aware of his paranoid delusions did not try to force him to the hospital). Patient denies any SI or HI at all; he has no other psychiatric history, no history of harm to himself or others and has a long history of demonstrating that he can successfully take care of himself in the community without any problems. And His daughter (who is supportive, lives close by and will continue to monitor him) agrees that he is not in any risk for harm to himself or others and maintains that he is able to take care of himself on his own. While patient would certainly benefit from mood stabilizing medication, he does not want it; and while his paranoid delusions/AH will likely persist, he does not rise to the level of involuntary commitment. For these reasons, underwriter mortgage loan is compelled to reject the 12b and patient's request for discharge honored. Patient educated on: diagnosis, medication risk/benefits and medical condition Informed Consent: understands, does not understand and further education needed Reason for continued inpatient stay Substantial Risk for: stable for discharge Statement Statement: I have reviewed the history and physical and performed a pertinent examination on my patient. No changes have occurred unless specified. If the History and Physical was not performed prior to admission, the Hospitalist's service will be consulted for completing the admission physical. Time Spent With Patient Time: Total time managing care of this patient today ____ minutes.
--- NOTE | 2023-10-26 15:34 | P.DS_ITS ---
DS: Providers Provider Date of Service: 10/26/23 Date of admission: 10/26/23 13:06 Date of discharge: 10/26/23 Primary care physician: Azael Silvestre MD Attending physician on admission: Eddie Carr Attending physician on discharge: Eddie Carr DS: Medications Discharge Medications Home Medications: Home Medications ?Medication ?Instructions ?Recorded ?Confirmed spironolactone 50 mg tablet 50 mg PO DAILY 10/26/23 10/26/23 Previous Rx's ?Medication ?Instructions ?Recorded metoprolol tartrate 50 mg tablet 50 mg PO BID #180 tabs 03/22/23 atorvastatin 80 mg tablet 80 mg PO BEDTIME #90 tabs 05/30/23 Mental Status Exam Mental Status Exam Narrative: Pt is alert and oriented; behavior is cooperative, friendly and calm; patient is not in distress; dressed in hospital attire with adequate hygiene; mood is described as good and affect congruent, bright, maybe a little expansive; eye contact appropriate; Speech is verbose but not pressured and overall normal rate, volume and prosody; no psychomotor agitation/retardation present; thought process is organized and goal directed; Thought content is on paranoid delusions; denies any SI/HI. Denies any AVH and patient does not appear to be internally preoccupied; no thought blocking. Patients insight and judgment impaired, but adequate. Data Data Completed and Pending Completed studies during hospitalization [Text1]: 10/26/23 10/26/23 10/26/23 00:21 01:34 02:11 WBC 6.7 RBC 4.68 Hgb 15.7 Hct 42.5 MCV 90.8 MCH 33.5 H MCHC 36.9 H RDW 12.7 Plt Count 180 MPV 9.5 Immature Gran % (Auto) 0.1 Neut % (Auto) 68.7 Lymph % (Auto) 21.4 Coke % (Auto) 7.8 Eos % (Auto) 1.6 Baso % (Auto) 0.4 Lymph # (Auto) 1.4 Coke # (Auto) 0.5 Eos # (Auto) 0.1 Baso # (Auto) 0.0 Abs Immat Gran (auto) 0.01 Absolute Neuts (auto) 4.6 Absolute Nucleated RBC 0.000 Nucleated RBC % (auto) 0.0 Sodium 136 Potassium 3.8 Chloride 104 Carbon Dioxide 19 L Anion Gap 17 BUN 7 L Creatinine 0.98 Estim Creat Clear Calc 83.8 Estimated GFR > 60 Random Glucose 102 Calcium 9.8 Total Bilirubin 2.0 H AST 18 ALT 25 Alkaline Phosphatase 65 Total Protein 7.1 Albumin 4.8 Urine Color Yellow Urine Appearance Clear Urine pH 5.5 Ur Specific [place] 1.010 Urine Protein Negative Urine Glucose (UA) Negative Urine Ketones Trace Urine Blood Negative Urine Nitrite Negative Ur Leukocyte Esterase Negative Urine RBC 0-2 Urine WBC 0-5 Ur Squamous Epith Cells 0-2 Urine Bacteria None Seen Hyaline Casts 0-2 Urine Opiates Screen Not Detected Ur Buprenorphine Scrn Not Detected Ur Oxycodone Screen Not Detected Urine Methadone Screen Not Detected Urine Fentanyl Screen Not Detected Ur Barbiturates Screen Not Detected Ur Phencyclidine Scrn Not Detected Ur Amphetamines Screen Not Detected U Benzodiazepines Scrn Not Detected Urine Cocaine Screen Not Detected U Marijuana (THC) Screen Not Detected Ethyl Alcohol < 10 Imaging Diagnostic Imaging Impressions Head CT 10/26/23 04:02 IMPRESSION: No acute intracranial process seen. DS: Summary Hospital Course Hospital Course: HPI: Patient is a 57-year-old male with no known history of psychiatric illness or past hospitalizations, with medical comorbidities including CAD, HLD, HTN who self presents to the emergency room wanting a head CT for ongoing headache. In the emergency room patient made paranoid and delusional statements such that there is a Mu-Ism in his head, observing things, saying upsetting things and poisoning him... Hearing voices coming out of the air conditioner... Patient was seen by care team who also observed paranoid delusional ideations and he was sent on a Section 12 a to M5 for psychiatric admission. On admission, patient was in good behavioral and impulse control and polite however upset that he was sent to the psychiatric unit saying he came in for head CT and has no idea why he was sent to Psychiatry. Patient articulates well and clearly says I am of no harm to myself or anyone else, that he has no history of any psychiatric illness, takes care of himself in his own apartment, does not want psychiatric treatment of any kind and that he wants to be discharged; he says if he has any further problems he can discuss it with his own PCP. He denies depression or anxiety other than recent anxiety from perceived persecution. Patient confirmed that he was hearing specific voices from the air conditioner, saying threatening things which he is finding very disturbing. Patient has little insight but after discussion was grudgingly willing to consider that perhaps he is misinterpreting what he is hearing, however he is pretty sure he is not paranoid in these are not delusions. Patient however says he has no plans of acting on this, has no ill will towards anyone, and he neighbors, no thoughts of hurting anyone and just wants to find answers and is grateful for negative head CT. Patient expresses thanks for senior technical writer listening to him and says that if he had not been forced to come the unit, feeling bamboozled, he would be more open to discussing this further with senior technical writer; however because he feels tricked (reporting he was sitting in the ED Pod all day, without anyone mentioning anything about psychiatric admission until all the sudden he was told he was being transported to the psych unit...which his daughter who was also present in ED corroborates...)...and now does not want to discuss it any further and insists on discharge. Patient gave senior technical writer permission to call his daughter who lives locally and is a therapist. Storage Brine Worker spoke with his daughter who lives in [place] and is also a therapist. She expresses concern that her father is having paranoid delusions with AH; however she fully agrees that he is not in any risk at all of harm to himself or others and never has been and that he takes care of himself just fine, living by himself in his apartment; she also fully agrees that while he would benefit from psychiatric treatment he does not require inpatient admission. She corroborates that her father has never had any psychiatric treatment in the past, never any SI or HI, paranoid thinking or AH and that this is new. That said, she reports she reports he always been somewhat hypomanic and with mildly pressured speech all of her life and this is his baseline. Impression/clinical reasoning: Patient does not meet criteria for involuntary commitment. Based on patient's presentation and his daughters collateral, It seems likely that patient has had subclinical hypomania (bipolar) for years which for some reason was recently exacerbated. Despite this exacerbation and the now presents of paranoid delusions and AH, patient remains otherwise organized in speech and behavior. He does not have any insight into paranoid delusions but is able to calmly, politely and logically discuss them and at this time, senior technical writer can not testify that they are otherwise significantly impairing his functioning or ability to take care of himself in the community. Patient decided to come to the hospital on his own to get a head CT out of concern for persistent headache; only while here did his psychiatric symptoms became known. And it is important to note that he has not caused any disturbance in the community or caused anyone alarm or concern that would prompt them call crisis or get him to the hospital (even his daughter who is aware of his paranoid delusions did not try to force him to the hospital). Patient denies any SI or HI at all; he has no other psychiatric history, no history of harm to himself or others and has a long history of demonstrating that he can successfully take care of himself in the community without any problems. And His daughter (who is supportive, lives close by and will continue to monitor him) agrees that he is not in any risk for harm to himself or others and maintains that he is able to take care of himself on his own. While patient would certainly benefit from mood stabilizing medication, he does not want it; and while his paranoid delusions/AH will likely persist, he does not rise to the level of involuntary commitment. For these reasons, senior technical writer is compelled to reject the 12b and patient's request for discharge honored. Status at Discharge Functional status at discharge: independent ambulation Overall status at discharge: patient is not back to baseline Time Spent with Patient Time attestation: Total time managing care of this patient today __60__ minutes. Time spent: Greater than 30 minutes Specific discharge activities: Meeting with patient; reviewing chart; discussed with team; discussing case with daughter. Discharge Plan Discharge Anticipated Discharge Date/Time: 10/26/23 15:38 Patient Disposition: Home, Self-Care Discharge Diagnosis: provisional dx of bipolar disorder Referrals: Azael Silvestre MD [Primary Care Provider] - 1 Week Discharge Medications: Continued metoprolol tartrate 50 mg tablet 50 mg PO BID Qty: 180 3RF atorvastatin 80 mg tablet 80 mg PO BEDTIME Qty: 90 3RF spironolactone 50 mg tablet 50 mg PO DAILY No Action ibuprofen 800 mg tablet 800 mg PO Q8H PRN (Reason: Pain (Scale Score 1-3)) Discharge Orders: Discharge Order (Routine); Ordered 10/26/23 Ordered By: Eddie Carr Diet: Regular diet Activity on Discharge: As tolerated Stand Alone Forms: Patient Portal Discharge page Print Language: Congolese Care Plan Goals: Maintain mood and safe behaviors Take medications as prescribed Practice coping skills Continue with outpatient providers and reach out to them as needed Consider additional psychiatric evaluation Health Concerns: Paranoid ideations CAD Plan of Treatment: Follow up with your PCP, psychiatric provider and other outpatient providers regarding above concerns Take medications as prescribed Assessment: Risk assessment at time of discharge:? Patient was interviewed prior to discharge and found to be fully oriented and without any SI or HI. Patient has improved insight and judgment and wants to continue treatment. Patient is not in imminent risk of harm to self or others and has a safety plan that includes presenting to the closest ER or calling 911 if feeling unsafe.? Patient has been observed closely by nursing and unit staff throughout admission; patient has not engaged in any behaviors that suggest dangerousness to self or others and has demonstrated appropriate behaviors and impulse control Discharge Date/Time: 10/26/23 15:50
== END 2023-10-26 15:50 | disposition home or self-care (01) | DRG 753 ==
LOC: HO.ED 10-26 13:07 → HO.PM5 10-26 13:19
PROVIDERS: Emergency Medicine; Admitting Provider Clinical Nurse Specialist Psychiatric/Mental Health, Adult; Emergency Provider Emergency Medicine; PCP Internal Medicine; Visit Provider Clinical Nurse Specialist Psychiatric/Mental Health, Adult
DX: F31.9 Bipolar disorder, unspecified (principal); I25.10 Atherosclerotic heart disease of native coronary artery without angina pectoris; Z79.899 Other long term (current) drug therapy; Z87.891 Personal history of nicotine dependence
CPT/HCPCS: 36415; 70450; 80053; 80307; 81001; 85025; 99285; S9485

== ENCOUNTER → 2023-10-26 13:06 | Outpatient (BNV) | payer OTHER, SELFPAY | PROVIDERS: Admitting Provider Clinical Nurse Specialist Psychiatric/Mental Health, Adult; Emergency Provider Emergency Medicine; PCP Internal Medicine; Visit Provider Psychiatry & Neurology Psychiatry | DX: F31.0 Bipolar disorder, current episode hypomanic (principal) | CPT/HCPCS: 99235; 99499 ==

== ENCOUNTER 2023-11-06 02:25 | Emergency (ER) | payer OTHER, SELFPAY ==
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
[2023-11-06 02:42] VITALS: BP 150/96; PULSE 70; RESP 20; TEMP 36.6; O2SAT 98; BMI 31.0
[2023-11-06 02:45] LABS: Basophils Percent Auto 0.3 % (0-2); Eosinophils Absolute Auto 0.2 X10*3/uL (0.0-0.4); Hematocrit 43.2 % (42.0-52.0); Hemoglobin 15.5 g/dl (14.0-18.0); Imm Gran Abs Auto 0.02 X10*3/uL (0.00-0.03); Imm Gran Pct Auto 0.3 % (0.0-0.4); Lymphocytes Absolute Auto 1.3 X10*3/uL (1.2-4.9); MANUAL DIFF FLAG NO; Mean Corpuscular HGB Conc 35.9 g/dl (31.0-36.0); Mean Corpuscular Hemoglobin 33.3 pg (27.0-33.0); Mean Corpuscular Volume 92.7 fL (80.0-98.0); Mean Platelet Volume 9.6 fL (9.4-12.4); Monocytes Absolute Auto 0.5 X10*3/uL (0.1-1.2); Neutrophils Absolute Auto 4.3 x10*3/uL (2.0-8.3); Neutrophils Percent Auto 68.4 % (45-73); Platelet Count 193 X10*3/uL (160-400); Red Blood Count 4.66 X10*6/uL (4.60-5.80); Red Cell Distribution Width 12.6 % (11.0-16.0); White Blood Count 6.3 X10*3/uL (4.8-10.8)
[2023-11-06 03:04] LABS: Alanine Aminotransferase 36 U/L (0-40); Albumin Level 4.5 g/dL (3.5-5.0); Alkaline Phosphatase 100 U/L (39-117); Anion Gap 14 (12-20); Aspartate Amino Transferase 18 U/L (5-37); Bilirubin Direct 0.5 mg/dL (0.0-0.5); Bilirubin Total 1.3 mg/dL (0.0-1.0); Blood Urea Nitrogen 8 mg/dL (9-16); Calcium 9.6 mg/dL (8.4-10.2); Carbon Dioxide 24 mmol/L (22-29); Chloride 102 mmol/L (96-108); Creatinine Clr Calc Pharmacy 80.9; Estimated Glomerular Filt Rate > 60; Ethanol < 10 mg/dL; Glucose Random 124 mg/dL (60-115); Sodium 136 mmol/L (135-145); Total Protein 6.7 g/dL (6.5-8.0)
[2023-11-06 03:59] LABS: Amphetamine Screen Urine Not Detected (Not Detect); Barbiturates, Urine Not Detected (Not Detect); Benzodiazepines Screen Urine Not Detected (Not Detect); Buprenorphine Scr Not Detected (Not Detect); Cannabinoid Screen Urine Not Detected (Not Detect); Cocaine Screen Urine Not Detected (Not Detect); Fentanyl, urine Not Detected (Not Detect); Methadone Screen, Urine Not Detected (Not Detect); Opiate Screen Urine Not Detected (Not Detect); Oxycodone Screen Urine Not Detected (Not Detect); Phencyclidine Screen Urine Not Detected (Not Detect)
[2023-11-06 04:15] LABS: Appearance Urine Clear; Color Urine Yellow; Glucose Urine UA Negative (Negative); Leukocyte Esterase Urine Negative (Negative); Nitrite Urine Negative (Negative); PH 5.5 (5.0-9.0); Urine Blood Negative (Negative); Urine Ketones Negative (Negative); Urine Protein Negative (Neg-Trace)
[2023-11-06] MEDS: Ibuprofen 800 MG TABLET PO (05:46)
--- NOTE | 2023-11-06 06:13 | PC.NURSE ---
Patient was up whole night, complaining of being locked in the psych unit, med rec completed/pending provider's approval, care consult ordered/pending evaluation, will continue to monitor
--- NOTE | 2023-11-06 07:02 | PC.NURSE ---
Assumed care of patient at 0645, patient ambulating around BH pod, listening to staff conversations, demonstrating intrusive behavior. Pt reminded of boundaries to which he responded well to. Pt currently calling family members
--- NOTE | 2023-11-06 07:43 | PC.NURSE ---
Addendum entered by Anika Anglin 11/06/23 09:14: Pts sister's # [phone] Original Note: Patient requesting to leave, patient aware of plan of care for CARE team evaluation. Pt states well I am not gonna tell them a damn thing . Pt encouraged to speak with CARE team and participate in assessment, patient responded that his sister is going to come pick him up because he refuses to be held against (my own) will . Patient verbalizes understanding of plan of care but states he is being held for no reason. when this RN attempted to explain why he was being held (paranoia), pt states he has no paranoia and that he needs to leave. This RN spoke on the phone with pts sister who states I don't understand why you are keeping him, he did nothing wrong . When this RN explained concerns regarding paranoia, patient's sister continued to express concern about him staying in the hospital. She reports that she will be coming after buddhist to pick him up. DO Oxana aware
--- NOTE | 2023-11-06 08:20 | PC.NURSE ---
patient refusing to eat breakfast, refusing to take medications
[2023-11-06 09:30] VITALS: BP 172/101; PULSE 60; RESP 16; TEMP 36.7; O2SAT 97
--- NOTE | 2023-11-06 09:47 | PC.NURSE ---
this RN attempted to administer morning medications, pt became upset stating i do not take my meds now, you all want to fuck up my medications and this happened last time . This RN explained that we can re-time the medications based on when he takes them at home, pt continued to report that this is unacceptable, none of you want to help me . Pharmacy called, metoprolol rescheduled for 11am
[2023-11-06] MEDS: Metoprolol Tartrate 50 MG TABLET PO (11:57)
[2023-11-06] MEDS: Magnesium Hydrox/Alum Hydrox 30 ML ORAL.SUSP 15 ML PO (12:10)
[2023-11-06] MEDS: Lidocaine HCl Viscous 2 % 15 ML SOLUTION MUCOUS MEM (12:10)
[2023-11-06] MEDS: Omeprazole 20 MG CAPSULE.DR PO (12:10)
--- NOTE | 2023-11-06 12:34 | P.CNPS_ITS ---
History of Present Illness Date of Service: 11/06/23 Chief Complaint: came into contact with poisonous substance? Requesting physician: Viki Ruiz Discussed with referring provider: No (discussed case with dr. Daigle) Sources of Information: patient interviewed, chart reviewed and crisis/core team assessment reviewed HPI Narrative: Patient is a 57-year-old male with history of CAD (s/p ME 2014; drug-eluting stent), HTN, HLD, who recently self presented about 10 days ago for paranoid delusions and AH, who self presents again reporting that he thinks he might have been poisoned by an unknown person, complaining of loose stool and heartburn. Patient reports that after he left the hospital 10 days ago he figured out that the voices were coming from his phone and not from the air conditioner; he looked over his phone and removed some part which he said resolved the issue of the auditory hallucinations. However, patient reports that over the past week he has been getting phone calls from an unknown man who has been threatening him. He says the man has called trying to extort money from him, at 1 point asking for 15,000 dollars... That he called and said that he is going to steal his house... And most recently, he called and said I poisoned your food for the past 5 days... Patient says that he has coincide only had loose stool heartburn so he came to the hospital worried about possible poisoning. Patient reports that either this person or someone else has been trying to steal his identity though he went to the bank and the bank explained that there was no suspicious activity happening; it is not clear if someone tried to take a mortgage out with his credit but says that his daughter helped him freeze his credit account. Patient's daughter told care team that he was sleeping with a gun under his pillow out of fear that someone might break in, however patient said this is not true, he never slept with a gun under his pillow at all; he also says that he brought all of his guns and handed them over to the police department, which his daughter does confirm. Household Appliance Assembler very bluntly explained that patient is having paranoid delusions. While patient denied this as the case, he said that because of consumer loan underwriter's recommendation at last admission, he is trying to get himself an outpatient psychiatrist and is waiting for an appointment. Patient however refuses to go to the inpatient unit; he says maybe he would consider taking medications but not at this hospital (because of poor service he feels he has received) and instead said he would go to [facility]. Otherwise patient denies any SI or HI. Past Psychiatric History: First admission 10/26/23; however, while he had paranoid delusions, there was no evidence that he was unsafe for can not take care of himself in the community and he was discharged that same day. No other clear psych history Medical Evaluation Reviewed: Yes [facility] Medical History Other and unspecified hyperlipidemia Essential hypertension Atherosclerotic cardiovascular disease Surgical History History of heart artery stent Diagnostics Vital Signs (24Hr): Vital Signs - 24 hr 11/06/23 02:42 11/06/23 09:30 Temperature 97.9 F 98.0 F Pulse Rate 70 60 Respiratory Rate 20 16 Blood Pressure 150/96 H 172/101 H Pulse Oximetry 98 97 Oxygen Delivery Method Room Air Room Air BMI result Body Mass Index 31.0 Labs 11/06/23 02:40 11/06/23 02:40 Labs: Laboratory Results - last 48 hr 11/06/23 11/06/23 02:40 03:40 WBC 6.3 RBC 4.66 Hgb 15.5 Hct 43.2 MCV 92.7 MCH 33.3 H MCHC 35.9 RDW 12.6 Plt Count 193 MPV 9.6 Immature Gran % (Auto) 0.3 Neut % (Auto) 68.4 Lymph % (Auto) 20.0 Rankin % (Auto) 8.0 Eos % (Auto) 3.0 Baso % (Auto) 0.3 Lymph # (Auto) 1.3 Rankin # (Auto) 0.5 Eos # (Auto) 0.2 Baso # (Auto) 0.0 Abs Immat Gran (auto) 0.02 Absolute Neuts (auto) 4.3 Absolute Nucleated RBC 0.000 Nucleated RBC % (auto) 0.0 Sodium 136 Potassium 4.0 Chloride 102 Carbon Dioxide 24 Anion Gap 14 BUN 8 L Creatinine 1.05 Estim Creat Clear Calc 80.9 Estimated GFR > 60 Random Glucose 124 H Calcium 9.6 Total Bilirubin 1.3 H Direct Bilirubin 0.5 AST 18 ALT 36 Alkaline Phosphatase 100 Total Protein 6.7 Albumin 4.5 Urine Color Yellow Urine Appearance Clear Urine pH 5.5 Ur Specific [place] 1.010 Urine Protein Negative Urine Glucose (UA) Negative Urine Ketones Negative Urine Blood Negative Urine Nitrite Negative Ur Leukocyte Esterase Negative Urine Opiates Screen Not Detected Ur Buprenorphine Scrn Not Detected Ur Oxycodone Screen Not Detected Urine Methadone Screen Not Detected Urine Fentanyl Screen Not Detected Ur Barbiturates Screen Not Detected Ur Phencyclidine Scrn Not Detected Ur Amphetamines Screen Not Detected U Benzodiazepines Scrn Not Detected Urine Cocaine Screen Not Detected U Marijuana (THC) Screen Not Detected Ethyl Alcohol < 10 Mental Status Exam Mental Status Exam Narrative: Pt is alert and oriented; behavior is cooperative, friendly and calm; patient is not in distress; dressed in hospital attire with adequate hygiene; mood is described as good and affect congruent, bright, maybe a little expansive; eye contact appropriate; Speech is verbose but not pressured and overall normal rate, volume and prosody; no psychomotor agitation/retardation present; thought process is organized and goal directed; Thought content is on paranoid delusions; denies any SI/HI. Denies any AVH and patient does not appear to be internally preoccupied; no thought blocking. Patients insight and judgment impaired, but adequate. Medications Medications Current Medications Atorvastatin Calcium (Atorvastatin Calcium 80 Mg Tablet) 80 mg PO BEDTIME RUBY Ibuprofen (Ibuprofen 800 Mg Tablet) 800 mg PO Q8H PRN PRN Reason: Pain (Scale Score 1-3) Metoprolol Tartrate (Metoprolol Tartrate 50 Mg Tablet) 50 mg PO BID@1100,2100 RUBY; Protocol Last Admin: 11/06/23 11:57 Dose: 50 mg Spironolactone (Spironolactone 25 Mg Tablet) 50 mg PO BEDTIME RUBY; Protocol Allergies Allergies Allergy/AdvReac Type Severity Reaction Status Date / Time ofloxacin [From Floxin] Allergy Unknown UNKNOWN Verified 11/06/23 02:42 prednisone [Prednisone] Allergy Unknown CONFUSION Verified 11/06/23 02:42 Assessment & Plan Assessment & Plan (1) Delusional ideas: Status: Acute Code(s): F22 - Delusional disorders (2) Paranoid behavior: Status: Acute Code(s): F22 - Delusional disorders (3) Bipolar disorder, unspecified: Status: Suspected Code(s): F31.9 - Bipolar disorder, unspecified Assessment and Plan: Currently bipolar disorder is a rule out. Plan Patient is a 57-year-old male with history of CAD (s/p ME 2014; drug-eluting stent), HTN, HLD, who recently self presented about 10 days ago for paranoid delusions and AH, who self presents again reporting that he thinks he might have been poisoned by an unknown person, complaining of loose stool and heartburn. Patient reports that after he left the hospital 10 days ago he figured out that the voices were coming from his phone and not from the air conditioner; he looked over his phone and removed some part which he said resolved the issue of the auditory hallucinations. However, patient reports that over the past week he has been getting phone calls from an unknown man who has been threatening him. He says the man has called trying to extort money from him, at 1 point asking for 15,000 dollars... That he called and said that he is going to steal his house... And most recently, he called and said I poisoned your food for the past 5 days... Patient says that he has coincide only had loose stool heartburn so he came to the hospital worried about possible poisoning. Patient reports that either this person or someone else has been trying to steal his identity though he went to the bank and the bank explained that there was no suspicious activity happening; it is not clear if someone tried to take a mortgage out with his credit but says that his daughter helped him freeze his credit account. Patient's daughter told care team that he was sleeping with a gun under his pillow out of fear that someone might break in, however patient said this is not true, he never slept with a gun under his pillow at all; he also says that he brought all of his guns and handed them over to the police department, which his daughter does confirm. Household Appliance Assembler very bluntly explained that patient is having paranoid delusions. While patient denied this as the case, he said that because of consumer loan underwriter's recommendation at last admission, he is trying to get himself an outpatient psychiatrist and is waiting for an appointment. Patient however refuses to go to the inpatient unit; he says maybe he would consider taking medications but not at this hospital (because of poor service he feels he has received) and instead said he would go to [facility]. Otherwise patient denies any SI or HI. dx: Provisional diagnosis of bipolar disorder, with paranoid delusions/auditory hallucinations Strictly, He does not quite meet criteria for a bipolar diagnosis diagnosis. He does have some symptoms however and consumer loan underwriter wonders if perhaps patient has been chronically hypomanic and that current presentation represents an increase of symptoms (Patient's PCP and daughter have both described him as having what sounds to consumer loan underwriter as possibly chronic hypomania) Impression: Patient does not meet criteria for involuntary commitment. His request for discharge honored. Patient has paranoid delusions and AH which 1st became apparent about 2 weeks ago when he self-presented to the ED, but was discharged since he did not meet criteria for involuntary admission. Prior to this no psychiatric history. However despite these paranoid delusions/AH, patient is otherwise organized and continues to demonstrate an ability to take care of himself in the community. Patient is logical and linear in thought and does not have any overt symptoms of tarsha. While he is verbose, Patient's daughter, who is a therapist has confirmed that this has always been his baseline presentation. He speech is not pressured and he is polite, cooperative, able to be interrupted and willing to listen to writers perspective. He has also accepted the negative medical workup he received in the ED. And while Patient's daughter is concerned because of her father's new onset paranoia, she concurs that he is able to care for himself in the community without problem. Patient has no history of harming self or anyone else and denies any SI or HI. 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 Household Appliance Assembler very bluntly provided education regarding patient's psychiatric diagnosis and delusional thinking; patient said he is willing to further discuss these issues with a psychiatrist but wants to do so on his own as an outpatient. This is the 2nd time this month that patient has self presented to the hospital, looking for medical attention based on paranoid delusions. Patient has no other history of paranoid delusions and it is possible that these psychotic symptoms will resolve on their own (and that patient is perhaps having some amount of a manic episode); it seems more likely though that his psychotic symptoms will persist. At this point however, they have not overtly impaired his functioning. He is not in imminent risk for harm to self or others. He does not rise to the level of involuntary commitment. Patient's request for discharge honored. Total time managing care of this patient today ____ minutes. Patient educated on: diagnosis, medication risk/benefits and medical condition Informed Consent: understands, does not understand and further education needed
[2023-11-06 15:19] VITALS: BP 172/101; PULSE 60; RESP 16; TEMP 36.7; O2SAT 97
== END 2023-11-06 15:21 | disposition home or self-care (01) ==
PROVIDERS: Emergency Provider Emergency Medicine; PCP Internal Medicine
DX: F31.9 Bipolar disorder, unspecified (principal); F22 Delusional disorders; Z51.81 Encounter for therapeutic drug level monitoring; Z79.899 Other long term (current) drug therapy
CPT/HCPCS: 36415; 80048; 80076; 80307; 81003; 85025; 99283; 99285; S9485

== ENCOUNTER → 2023-11-06 03:05 | Outpatient (BNV) | payer OTHER, SELFPAY | PROVIDERS: Emergency Provider Emergency Medicine; PCP Internal Medicine; Visit Provider Psychiatry & Neurology Psychiatry | DX: F22 Delusional disorders (principal); F31.9 Bipolar disorder, unspecified | CPT/HCPCS: 99283 ==

== ENCOUNTER → 2023-12-14 09:20 | Outpatient (BNVA) | payer OTHER, SELFPAY | PROVIDERS: PCP Internal Medicine; Visit Provider Internal Medicine ==

== ENCOUNTER 2024-01-12 11:40 | Outpatient (REF) | payer OTHER, SELFPAY ==
[2024-01-12 12:05] LABS: Potassium 4.7 mmol/L (3.3-5.1)
== END 2024-01-12 11:41 | disposition home or self-care (01) ==
LOC: HO.LNP 11:40
PROVIDERS: Visit Provider Internal Medicine
DX: E87.5 Hyperkalemia (principal)
CPT/HCPCS: 84132

== ENCOUNTER 2024-01-24 13:35 | Outpatient (AMB) | payer OTHER, SELFPAY ==
[2024-01-24 13:47] VITALS: BP 120/68; PULSE 78; BMI 31.1
--- NOTE | 2024-01-24 13:47 | MHC.OFFVIS ---
Vital Signs 01/24/24 13:47 Height 5 ft 7 in Weight 198 lb 6.656 oz BMI 31.1 BP 120/68 Blood Pressure Location Lt brachial Position Sitting Pulse 78 Pulse Source Pulse Oximeter Intake Visit Reasons: 1 yr follow up Allergies ofloxacin [From Floxin] Allergy (Unknown, Verified 11/06/23 02:42) UNKNOWN prednisone [Prednisone] Allergy (Unknown, Verified 11/06/23 02:42) CONFUSION Medication List - Last Reconciled 01/24/24 by German Marinelli MD aspirin (Adult Aspirin Regimen) 81 mg PO DAILY atorvastatin 80 mg PO BEDTIME ibuprofen 800 mg PO Q8H PRN metoprolol tartrate 50 mg PO BID spironolactone 50 mg PO DAILY HPI Comments Details: Jaya returns for follow-up regarding coronary artery disease. He had a non ST elevation myocardial infarction in 2014. Then received drug-eluting stent to circumflex. He also had indeterminate lesions in other vessels but not intervened upon. Overall, he really does not have any cardiac symptoms whatsoever. No angina. Nothing else of concern otherwise. Doing well from cardiac. [facility] Medical History Other and unspecified hyperlipidemia Essential hypertension Atherosclerotic cardiovascular disease Surgical History History of heart artery stent Family History Father Lung cancer Mother Alzheimer disease CVD (cardiovascular disease) Diabetes Social History Household Members: None Household Members Other:: with dog and cat Unable to assess alcohol history related to: Refusing to respond Alcohol intake: current Alcohol intake frequency: 3 or more drinks per day Alcohol type: beer Patient Tobacco Use Status: Former Tobacco user Tobacco use type: Cigarette Years Smoked: 15 +/- e-Cigarette/Vaping Use: Never Used Second Hand Smoke Exposure: No Current occupational status: employed 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 Review of Systems Const Denies weakness ENT Denies dizziness Card Denies chest pain, Denies chest pain with activity, Denies syncope, Denies rapid heart rate, Denies pedal edema, Denies edema, Denies leg edema, Denies lightheadedness, Denies palpitations, Denies dyspnea, Denies dyspnea on exertion and Denies orthopnea Resp Denies cough, Denies dyspnea and Denies dyspnea on exertion GI Denies hematochezia and Denies change in stool character Musc Denies abnormal gait, Denies muscle cramps, Denies muscle weakness, Denies numbness, Denies radiating pain into limb and Denies tingling Neuro Denies abnormal gait, Denies dizziness, Denies syncope, Denies numbness, Denies tingling and Denies weakness Endo Denies palpitations Physical Exam Vital Signs: Last Vital Signs Pulse 78 01/24/24 13:47 BP 120/68 01/24/24 13:47 BMI result Body Mass Index 31.1 Const General: comfortable and no acute distress Orientation/consciousness: patient oriented x3 HEENT Other: Unremarkable Head: Yes normal to inspection Neck Neck: Yes normal visual inspection Chest Chest palpation & inspection: normal inspection of the chest Resp Auscultation: clear to auscultation bilaterally Cardio Palpation: normal PMI Heart sounds: S1 normal heart sound present, S2 normal heart sound present, no gallops, no murmurs and no rubs GI Palpation (GI): Soft to palpation Back/Spine/Pelvis Other: unremarkable Skin General skin exam: no rashes or lesions noted Neuro General: patient oriented x3 Extrem General: Yes normal to inspection Psych Mental Status: mental status grossly normal Assessment & Plan Assessment & Plan (1) Atherosclerotic cardiovascular disease: Code(s): I25.10 - Atherosclerotic heart disease of [place] coronary artery without angina pectoris Category: Medical (2) Essential hypertension: Code(s): I10 - Essential (primary) hypertension Category: Medical (3) Other and unspecified hyperlipidemia: Code(s): E78.5 - Hyperlipidemia, unspecified Category: Medical Plan Recent cardiac studies reviewed. Echocardiogram with LVEF of 55-60%; normal peak global longitudinal strain and otherwise unremarkable. Exercise stress myocardial perfusion imaging study was unremarkable at 7.3 Mets. He had 1/10 baseline chest pain that increased to 3/10 with exercise without EKG changes or perfusion abnormalities. Overall, remains stable. Continue aspirin. On Beta-blockers. Numerous times we have discussed the interaction between epinephrine/beta-blockers but he absolutely does not want any changes. He is well aware of the fact that epinephrine used for anaphylaxis may not work when used with beta-blockers. With regard to statins, continue atorvastatin. Last LDL 88 mg/dL with triglycerides of 166 mg/dL. Not willing to take Zetia. Coding Level of Care Code Est Pt Level 4 (38011) Diagnoses Atherosclerotic cardiovascular disease I25.10 Essential hypertension I10 Other and unspecified hyperlipidemia E78.5
== END 2024-01-24 14:16 | disposition home or self-care (01) ==
PROVIDERS: PCP Internal Medicine; Visit Provider Internal Medicine
DX: I25.10 Atherosclerotic heart disease of native coronary artery without angina pectoris (principal); I10 Essential (primary) hypertension; E78.5 Hyperlipidemia, unspecified
CPT/HCPCS: 99214

== ENCOUNTER 2024-04-20 12:42 | Outpatient (REF) | payer OTHER, SELFPAY ==
--- OUTSIDE RECORDS SUMMARY | 2024-04-20 13:23 | XMS_ITS ---
Author Organization Azael Silvestre MD Address [address] [place] [address] [place] [phone] Care Team Providers Care Extrusion Operator Name Role Phone Azael Silvestre Primary Care Provider [phone] REASON FOR VISIT 2 month Encounters Encounter Location Date Provider Diagnosis Azael Silvestre MD [address] [place] [address] [place] [phone] 01/31/2024 Azael Silvestre Plan Of Treatment Next Appt Details Provider Name:Azael Caceres iepascual, 04/26/2024 07:30:00 AM, [address] [place] [address], [address], [phone], Provider Name:Azael Caceres ier, 10/18/2024 07:00:00 AM, [address] [place] [address], [phone], Provider Name:Azael foley, 10/25/2024 08:30:00 AM, [address] [place] [address], [phone], Progress Notes * Jaya BENITEZ MDOB:[birth year] (58 yo M)Acc No.[id number]:01/31/2024 Progress Notes Patient:?Jaya BENITEZ Provider:?Azael Silvestre MD :1965???Age:58 Y???Sex:Male Alec e:01/31/2024 Address:[address] [place], [place] [phone] Subjective: * Chief Complaints: * ???1. 2 month. * Medical History:? Objective: * Vitals:? Assessment: Plan: * Treatment: * * The named appointment provid er may or may not be the originator of this progress note, and it is not deemed complete until electronically signed by the appointment provider. Sign off status: Pending * Provider:?Azael Silvestre MD Date:?1 04/01/2023 Generated for Roger rosen/Alfonso/Giaitting on:?04/20/2024 01:23 PM EST
--- OUTSIDE RECORDS SUMMARY | 2024-04-20 13:23 | XMS_ITS ---
Author Organization Azael Silvestre MD Address [address] [place] [address] [address] [place] [phone] Care Team Providers Care Capsule Maker Name Role Phone Azael Silvestre Primary Care Provider [phone] Results Component Value Reference Range Notes Potassium Reviewed date:01/12/2024 12:29:10 PM Interpretation: Performing Lab:[facility], [address] [place] [phone] Notes/Report: Potassium 4.7 3.3-5.1 mmol/L REASON FOR VISIT hyperkalemia Encounters Encounter Location Date Provider Diagnosis Azael Silvestre MD [address] [place] [address] [place] [phone] 01/12/2024 Azael Silvestre Hyperkalemia E87.5 Assessments Encounter Date Diagnosis (ICD Code) Assessment Notes Treatment Notes Treatment Clinical Notes Section Notes 01/12/2024 Hyperkalemia (ICD-10 - E87.5) Plan Of Treatment Next Appt Details Provider Name:Azael foley, 04/26/2024 07:30:00 AM, [address] [place] [address], [address] [facility], [place], [place], [phone], Provider Name:Azael Caceres ier, 10/18/2024 07:00:00 AM, [address], [address], [place], [place], [phone], Provider Name:Azael Caceres ier, 10/25/2024 08:30:00 AM, [address], [address], [place], [place], [phone], Progress Notes * Jaya BENITEZ MDOB:[birth year] (58 yo M)Acc No.[id number]:01/12/2024 Progress Note Patient:?ELIJaya SCHWAB Ila Provider:?Azael Silvestre MD :1965???Age:58 Y???Sex:Male Alec e:01/12/2024 Address:[address] [place], [place] [phone] Subjective: * Chief Complaints: * ???1. Hyperkalemia. * Medical History:? Objective: * Vitals:? Assessment: * Assessment: 1.?Hyperkalemia - E87.5 (Araseli declan)??? Plan: * Treatment: * Procedure Codes:?45335 VENIP UNCT, ROUTINE* * * The named appointment provid er may or may not be the originator of this progress note, and it is not deemed complete until electronically signed by the appointment provider. Sign off status: Pending * Provider:?Azael Silvestre MD Date:?1 Generated for Roger rosen/Alfonso/eTransmitting on:?04/20/2024 01:23 PM EST
--- OUTSIDE RECORDS SUMMARY | 2024-04-20 13:23 | XMS_ITS ---
Author Organization Azael Silvestre MD Address [address] [place] [address] [place] [phone] Care Team Providers Care Cereal Maker Name Role Phone Azael Silvestre Primary Care Provider [phone] REASON FOR VISIT FASTING LIPIDS Encounters Encounter Location Date Provider Diagnosis Azael Silvestre MD [address] [place] [address] [place] [phone] 04/20/2024 Azael Silvestre Pure hypercholestero lemia E78.00 Assessments Encounter Date Diagnosis (ICD Code) Assessment Notes Treatment Notes Treatment Clinical Notes Section Notes 04/20/2024 Pure hypercholesterolemia (ICD-10 - E78.00) Plan Of Treatment Pending Test Test Name Order Date Liver Panel 04/20/2024 Lipid Panel with Reflex 04/20/2024 Next Appt Details Provider Name:Azael foley, 04/26/2024 07:30:00 AM, [address] [place] [address], [address] [place] [address], [phone], Provider Name:Azael foley, 10/18/2024 07:00:00 AM, [address] [place] [address], [address], [phone], Provider Name:Azael Caceres ier, 10/25/2024 08:30:00 AM, [address], [address], [place], [phone], Progress Notes * Jaya BENITEZ MDOB:[birth year] (58 yo M)Acc No.[id number]:04/20/2024 Progress Note Patient:?Jaya BENITEZ Provider:?Azael Silvestre MD :1965???Age:58 Y???Sex:Male Alec e:04/20/2024 Address:[address] [place] [address] [id number] Subjective: * Chief Complaints: * ???1. FASTING LIPIDS. * Medical History:? Objective: * Vitals:? Assessment: * Assessment: 1.?Pure hypercholesterolemia - E78.00 (Primary)??? Plan: * Treatment: * Procedure Codes:?96006 VENIP UNCT, ROUTINE* * * The named appointment provid er may or may not be the originator of this progress note, and it is not deemed complete until electronically signed by the appointment provider. Sign off status: Pending * Provider:?Azael Silvestre MD Date:?0 04/20/2024 Generated for Roger rosen/Alfonso/Giaitting on:?04/20/2024 01:23 PM EST
[2024-04-20 13:39] LABS: Alanine Aminotransferase 45 U/L (0-40); Albumin Level 4.5 g/dL (3.5-5.0); Alkaline Phosphatase 83 U/L (39-117); Aspartate Amino Transferase 31 U/L (5-37); Bilirubin Direct 0.4 mg/dL (0.0-0.5); Bilirubin Total 1.3 mg/dL (0.0-1.0); Cholesterol 171 mg/dL (<200); HDL Cholesterol 54 mg/dL (>40); LDL Cholesterol Calculated 91 mg/dL (<100); Total Protein 7.3 g/dL (6.5-8.0); Triglycerides 130 mg/dL (<150)
[2024-04-20 13:51] LABS: Reflex LDLD? No
== END 2024-04-20 12:43 | disposition home or self-care (01) ==
LOC: HO.LNP 12:42
PROVIDERS: Visit Provider Internal Medicine
DX: E78.00 Pure hypercholesterolemia, unspecified (principal)
CPT/HCPCS: 80061; 80076

== ENCOUNTER 2024-05-11 08:39 | Outpatient (REF) | payer OTHER, SELFPAY ==
--- NOTE | ~2024-05-11 | XR_ITS ---
EXAMINATION: XR THORACIC SPINE CLINICAL INFORMATION: PAIN THORACIC SPINE COMPARISON: None available. TECHNIQUE: 3 views of the thoracic spine were obtained. FINDINGS: Multilevel marginal osteophyte formation and endplate sclerosis decreased intervertebral disc height involving the mid to lower spine. No acute cortical disruption or gross malalignment. No lytic or blastic lesions. XR/XR thoracic spine 2V IMPRESSION: Multilevel lower thoracic spine spondylosis. Electronically signed by: Juan Carlos Quintana MD 05/11/2024 10:53 AM VIDA LOPEZ
--- OUTSIDE RECORDS SUMMARY | 2024-05-11 08:57 | XMS_ITS ---
Author Organization Azael Silvestre MD Address [address] [place] [address] [place] [phone] Care Team Providers Care Phys Ther Name Role Phone Azael Silvestre Primary Care Provider REASON FOR VISIT 2 month Encounters Encounter Location Date Provider Diagnosis Azael Silvestre MD [address] [place] [address] [place] [phone] 01/31/2024 Azael Silvestre Plan Of Treatment Next Appt Details Provider Name:Azael Caceres ier, 10/18/2024 07:00:00 AM, [address] [place] [address], [address], [phone], Provider Name:Azael Caceres ier, 10/25/2024 08:30:00 AM, [address] [place] [address], [phone], Progress Notes * Jaya BENITEZ MDOB:[birth year] (58 yo M)Acc No.[id number]:01/31/2024 Progress Notes Patient:?Jaya BENITEZ Provider:?Azael Silvestre MD :1965???Age:58 Y???Sex:Male Alec e:01/31/2024 Address:[address] [place], [place] [phone] Subjective: * Chief Complaints: * ???1. 2 month. * Medical History:? Objective: * Vitals:? Assessment: Plan: * Treatment: * * The named appointment provid er may or may not be the originator of this progress note, and it is not deemed complete until electronically signed by the appointment provider. Sign off status: Pending * Provider:?Azael Silvestre MD Date:?1 04/01/2023 Generated for Roger rosen/Alfonso/Giaitting on:?05/11/2024 08:57 AM EST
--- OUTSIDE RECORDS SUMMARY | 2024-05-11 08:58 | XMS_ITS ---
Author Organization Azael Silvestre MD Address [address] [place] [address] [place] [phone] Care Team Providers Care Chief Clinical Officer Name Role Phone zAael Silvestre Primary Care Provider Allergies Allergen (clinical drug ingredient) Drug/Non Drug Allergy documented on EMR Reaction Allergy Type Onset Date Status Simvastatin myalgia Drug Allergy Activ e pravastatin Pravastatin Sodium reflux Drug Allergy Active ofloxacin floxin (uncoded) swelling Allergy Act dontae REASON FOR VISIT 6 MO F/U Encounters Encounter Location Date Provider Diagnosis Azale Silvestre MD [address] [place] [address] [place] [phone] 04/26/2024 Azael Silvestre Plan Of Treatment Next Appt Details Provider Name:Azael Caceres ier, 10/18/2024 07:00:00 AM, [address] [place] [address], [address], [phone], Provider Name:Azael foley, 10/25/2024 08:30:00 AM, [address] [place] [address], [address], [phone], Progress Notes * Jaya BENITEZ MDOB:[birth year] (58 yo M)Acc No.[id number]:04/26/2024 Progress Notes Patient:?Jaya BENITEZ Provider:?Azael Silvestre MD :1965???Age:58 Y???Sex:Male Alec e:04/26/2024 Address:[address] [place], [place] [phone] Subjective: * Chief Complaints: * ???1. 6 MO F/U. * ROS:?General/Constitutional:?Denies?Chills.?Denies?Fatigue.?Denies?Fever.?Denies?Headache.?ENT:?Denies?Sore throat.?Respiratory:?Denies?Cough.?Denies?Shortness of breath at rest.?Denies?Shortness of breath with exertion.?Gastrointestinal:?Denies?Diarrhea.?Denies?Nausea.? * Medical History:?2014 patien t refuses colonoscopy, Refuses any cholesterol drug, Negative cysto and ct 2016, Negative cysto and cat scan, Refuses mammo. * Allergies:?floxin: swelling, Pravastatin Sodium: reflux, Simvastatin: myalgia. Objective: * Vitals:? Assessment: Plan: * Treatment: * * The named appointment provid er may or may not be the originator of this progress note, and it is not deemed complete until electronically signed by the appointment provider. Sign off status: Pending * Provider:?Azael Silvester MD Date:?0 04/26/2024 Generated for Roger rosen/Alfonso/Giaitting on:?05/11/2024 08:57 AM EST
--- OUTSIDE RECORDS SUMMARY | 2024-05-11 08:58 | XMS_ITS ---
Author Organization Azael Silvestre MD Address [address] [place] [phone] Care Team Providers Care [employer] Principal Name Role Phone Azael Silvestre Primary Care Provider [phone] Results Component Value Reference Range Notes Liver Panel Reviewed date:04/20/2024 02:21:26 PM Interpretation: Performing Lab:[facility], [address] [place] [phone] Notes/Report: Bilirubin Total 1.3 0.0-1.0 mg/dL Bilirubin Direct 0.4 0.0-0.5 mg/dL Aspartate Amino Transferase 31 5-37 U/L Alanine Aminotransferase 45 0-40 U/L Total Protein 7.3 6.5-8.0 g/dL Albumin Level 4.5 3.5-5.0 g/dL Alkaline Phosphatase 83 39-117 U/L Lipid Panel with Reflex Reviewed date:04/20/2024 02:21:06 PM Interpretation: Performing Lab:[facility], [address] [place] [phone] Notes/Report: Triglycerides 130 <150 mg/dL Desirable Triglyceride: [...] Location Date Provider Diagnosis Azael Silvestre MD [address] [place] [address] [place] [phone] 04/20/2024 Azael Silvestre Pure hypercholestero lemia E78.00 Assessments Encounter Date Diagnosis (ICD Code) Assessment Notes Treatment Notes Treatment Clinical Notes Section Notes 04/20/2024 Pure hypercholesterolemia (ICD-10 - E78.00) Plan Of Treatment Next Appt Details Provider Name:Azael Caceres ier, 10/18/2024 07:00:00 AM, [address] [place] [address], [address] [place] [address], [phone], Provider Name:Azael Caceres ier, 10/25/2024 08:30:00 AM, [address] [place] [address], [place] [address], [place], [place], [phone], Progress Notes * Jaya BENITEZ MDOB:[birth year] (58 yo M)Acc No.[id number]:04/20/2024 Progress Note Patient:?Jaya BENITEZ Provider:?Azael Silvestre MD :1965???Age:58 Y???Sex:Male Alec e:04/20/2024 Address:[address] [place] [id number] Subjective: * Chief Complaints: * ???1. FASTING LIPIDS. * Medical History:? Objective: * Vitals:? Assessment: * Assessment: 1.?Pure hypercholesterolemia - E78.00 (Primary)??? Plan: * Treatment: * Procedure Codes:?51528 VENIP UNCT, ROUTINE* * * The named appointment provid er may or may not be the originator of this progress note, and it is not deemed complete until electronically signed by the appointment provider. Sign off status: Pending * Provider:?Azael Silvestre MD Date:?0 04/20/2024 Generated for Roger rosen/Alfonso/Fabianasmitting on:?05/11/2024 08:57 AM EST
== END 2024-05-11 08:40 | disposition home or self-care (01) ==
LOC: HO.XRAY 08:39
PROVIDERS: PCP Internal Medicine; Visit Provider Physical Medicine & Rehabilitation
DX: M54.6 Pain in thoracic spine (principal)
CPT/HCPCS: 72070

== ENCOUNTER → 2024-05-11 08:46 | Outpatient (BNV) | payer OTHER, SELFPAY | PROVIDERS: PCP Internal Medicine; Visit Provider Radiology Diagnostic Radiology | DX: M54.6 Pain in thoracic spine (principal) | CPT/HCPCS: 72072 ==

== ENCOUNTER 2024-09-25 05:26 | Emergency (ER) | payer OTHER, SELFPAY ==
--- OUTSIDE RECORDS SUMMARY | 2024-01-31 12:30 | XMS_ITS ---
Author Organization Azael Silvestre MD Address [address] [place] [address] [place] [phone] Care Team Providers Care Gift Shop Clerk Name Role Phone Azael Silvestre Primary Care Provider [phone] REASON FOR VISIT 2 month Encounters Encounter Location Date Provider Diagnosis Azael Silvestre MD [address] [place] [address] [place] [phone] 01/31/2024 Azael Silvestre Plan Of Treatment Next Appt Details Provider Name:Azael Caceres ier, 10/18/2024 07:00:00 AM, [address] [place] [address], [address], [phone], Provider Name:Azael Caceres ier, 10/25/2024 08:30:00 AM, [address] [place] [address], [phone], Progress Notes * Jaya BENITEZ MDOB:[birth year] (58 yo M)Acc No.[id number]:01/31/2024 Progress Notes Patient: Jaya MCCRAY Provider: Ritchie Silvestre MD :1965 A ge:58 Y S ex:Male Date:01/31/2024 Address:[address] [place], [place] [phone] Subjective: * Chief Complaints: * 1 . [...] Date: 04/01/2023 Generated for Roger rosen/Alfonso/Giaitting on: 0 09/25/2024 06:33 AM EDT
[2024-09-25 06:10] VITALS: BP 157/93; PULSE 69; RESP 18; TEMP 36.5; O2SAT 97; BMI 30.1
--- NOTE | 2024-09-25 07:13 | PC.NURSE ---
Pt A&O X4 VSS NAD. Pt awaiting provider- dime sized scabbed area left dorsal calf. No drainage.
--- NOTE | 2024-09-25 07:59 | ED.GENADULT ---
HPI - General Adult General Chief complaint: Animal Bite Stated complaint: Leg Pain Time Seen by Provider: 09/25/24 07:53 Source: patient, RN notes reviewed and old records reviewed Mode of arrival: ambulatory Limitations: no limitations History of Present Illness ED Provider: Urszula [facility] narrative: Patient is a 58-year-old male with history of HTN, atherosclerotic cardiovascular disease, SVT, bipolar disorder presenting to the emergency department with report of tick bite to left lower leg. States that he has been outdoors often recently and has had multiple ticks that he is removed from his body. States he noted a small scab to his left lower leg in the area of 1 prior tick bite. He is specifically requesting prophylactic doxycycline. Denies any fevers, chills, body aches, joint pain. complaint: tick bite Related Data Home Medications ?Medication ?Instructions ?Recorded ?Confirmed spironolactone 50 mg tablet 50 mg PO DAILY 10/26/23 01/24/24 ibuprofen 800 mg tablet 800 mg PO Q8H PRN Pain (Scale 11/06/23 01/24/24 Score 1-3) aspirin 81 mg tablet,delayed 81 mg PO DAILY 01/24/24 01/24/24 release (Adult Aspirin Regimen) Previous Rx's ?Medication ?Instructions ?Recorded atorvastatin 80 mg tablet 80 mg PO BEDTIME #90 tabs 03/29/24 metoprolol tartrate 50 mg tablet 50 mg PO BID #180 tabs 03/29/24 Allergies Allergy/AdvReac Type Severity Reaction Status Date / Time ofloxacin (From Floxin) Allergy Unknown Anaphylaxis Verified 09/25/24 06:14 prednisone (Prednisone) AdvReac Unknown CONFUSION Verified 09/25/24 06:14 Review of Systems Review of Systems: As per HPI Yes all other systems are reviewed and are negative Constitutional: Constitutional: Reports as per HPI [facility] Past Medical History Medical History Other and unspecified hyperlipidemia Essential hypertension Atherosclerotic cardiovascular disease Surgical History History of heart artery stent Family History Family History Father Lung cancer Mother Alzheimer disease CVD (cardiovascular disease) Diabetes Social History Social History Household Members: None Household Members Other:: with dog and cat Unable to assess alcohol history related to: Refusing to respond Alcohol intake: current Alcohol intake frequency: 0-2 drinks per day Alcohol type: beer Patient Tobacco Use Status: Former Tobacco user Tobacco use type: Cigarette Years Smoked: 15 +/- Smoked in Last 30 Days: No e-Cigarette/Vaping Use: Never Used Second Hand Smoke Exposure: No Use of substances other than those prescribed or required for medical reasons: No Advance Directives: No Advance Directives Information Provided: Yes Current occupational status: employed 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 Blood pressure normal. Heart rate normal. Respiratory rate normal. Temperature normal. Oxygen saturation normal. Const General: cooperative, healthy appearing and no acute distress Orientation/consciousness: oriented to person, oriented to place, oriented to time and patient oriented x3 Limitations: no limitations [facility] Head: Yes normocephalic and Yes atraumatic Ears: external ears normal General nose exam: Normal external nose present Face and sinus: Yes face symmetric Mouth: oropharynx normal and moist mucous membranes Throat: Yes uvula midline Eyes Pupils: Equal, round and reactive pupils present Neck Neck: Yes normal visual inspection and Yes supple Resp Effort & Inspection: normal respiratory effort and able to speak in complete sentences Auscultation: clear to auscultation bilaterally Cardio Rate: regular rate Rhythm: regular rhythm Heart sounds: S1 normal heart sound present and S2 normal heart sound present GI Palpation (GI): Soft to palpation and nontender Auscultation: normoactive bowel sounds General: Yes no CVA tenderness Back/Spine/Pelvis Back: no CVA tenderness Skin Other: 1cm diameter scab to distal posterior left lower leg without surrounding erythema or warmth General skin exam: elasticity normal and turgor normal Neuro General: oriented to person, oriented to place, oriented to time, patient oriented x3, moves all extremities, no focal motor deficits and CN's II-XI intact bilaterally Cranial nerves: Yes Equal, round and reactive pupils present Cognition (Neuro): normal cognition Extrem General: Yes full ROM, Yes no pedal edema and Yes no calf tenderness Psych Mental Status: mental status grossly normal Affect: normal affect Thought process: Normal thought process present Medical Decision Making Medical Decision Making [facility] Narrative: Patient is a 58-year-old male with history of HTN, atherosclerotic cardiovascular disease, SVT, bipolar disorder presenting to the emergency department with report of tick bite to left lower leg. On exam patient is awake, A+Ox3, VS WNL, afebrile, normal neurological exam without focal deficits, physical exam findings as above. Given reported symptoms and physical exam findings, initial differential includes but is not limited to tick bite, erythema migrans, other tick born illness, cellulitis. Patient declining labs at this time, states he will follow up with his PCP. Given that tick bites have occurred within the past few days, feel this is reasonable, and he can follow up with PCP. Medicated with one time prophylactic dose of doxycycline. Return precautions discussed. Patient verbalized understanding of and agreement with plan. Differential Diagnosis Differential Diagnoses: The differential diagnosis associated with the presentation includes As per [facility] Admission/Observation Consideration of admission/observation: Escalation of care including admission/observation considered Patient would have been admitted to the hospital had their clinical presentation warranted hospital admission. External Record Review External record reviewed: Inpatient record, Office record and Outpatient record Prescription Management I considered prescription management with: Antibiotic Discharge Plan Discharge Clinical Impression: Tick bite of lower leg Qualifiers: Encounter type: initial encounter Laterality: left Qualified Code(s): S80.862A - Insect bite (nonvenomous), left lower leg, initial encounter Patient Disposition: Home, Self-Care Instructions: Tick Bite (ED) Additional Instructions: You were evaluated in the emergency department today for a tick bite. You were treated with a 1 time dose of an antibiotic to prevent the transmission of infection. If you develop fever/chills/body aches/joint pain or worsening rash in the next 4-6 weeks, please follow up with your cashier credit/primary care provider to have additional labs drawn. Return to the emergency department with any new or concerning symptoms. Prescriptions: No Action metoprolol tartrate 50 mg tablet 50 mg PO BID Qty: 180 3RF atorvastatin 80 mg tablet 80 mg PO BEDTIME Qty: 90 3RF ibuprofen 800 mg tablet 800 mg PO Q8H PRN (Reason: Pain (Scale Score 1-3)) spironolactone 50 mg tablet 50 mg PO DAILY aspirin [Adult Aspirin Regimen] 81 mg tablet,delayed release (DR/EC) 81 mg PO DAILY Print Language: Kazakh
[2024-09-25 08:52] VITALS: BP 157/93; PULSE 69; RESP 18; TEMP 36.5; O2SAT 97
== END 2024-09-25 08:53 | disposition home or self-care (01) ==
PROVIDERS: Emergency Provider Emergency Medicine
DX: S80.862A Insect bite (nonvenomous), left lower leg, initial encounter (principal); W57.XXXA Bitten or stung by nonvenomous insect and other nonvenomous arthropods, initial encounter; Y93.9 Activity, unspecified; Y92.9 Unspecified place or not applicable; Y99.9 Unspecified external cause status
CPT/HCPCS: 99283; 99284

== ENCOUNTER 2024-10-18 11:09 | Outpatient (REF) | payer OTHER, SELFPAY ==
--- OUTSIDE RECORDS SUMMARY | 2024-10-18 03:00 | XMS_ITS ---
Author Organization Azael Silvestre MD Address [address] [place], [place] [phone] Care Team Providers Care Patrol Conductor Name Role Phone Azael Silvestre Primary Care Provider Results Component Value Reference Range Notes Complete Blood Count Auto Di ff (Not yet reviewed by provider) Interpretation: Performing Lab:[facility], [address] [place] [phone] Notes/Report: White Blood Count 5.5 4.8-10.8 X10*3/uL [...] X10*3/uL NRBC Abs Auto 0.000 0.0-0.012 X10*3/uL REASON FOR VISIT FASTING LABS Encounters Encounter Location Date Provider Diagnosis Azael Silvestre MD [address] [place], [place] [phone] 10/18/2024 Azael Silvestre Blood tests for rout [...] Treatment Pending Test Test Name Order Date Complete Blood Count Auto Diff 5 Comprehensive [place]. Panel Fast 5 Lipid Panel 10/18/2024 PSA,Total (Free>4and<10) 10/18/2024 UA ClnCatch+Micro w/rflx Cult 10/18/2024 Next Appt Details Provider Name:Azael riddler, 10/25/2024 08:30:00 AM, [address] [place] [address], [address], [place], [place], [phone], Progress Notes * Jaya BENITEZ MDOB:[birth year] (58 yo M)Acc No.[id number]:10/18/2024 Progress Note Patient: Jaya MCCRAY Provider: Ritchie Silvestre MD :1965 A ge:58 Y S ex:Male Date:10/18/2024 Address:[address] [place] [address] Subjective: * Chief Complaints: * 1 . FASTING LABS. * Medical History: Objective: * Vitals: Assessment: * Assessment: 1. B lood tests for routine general physical examination - Z00.00 (Primary) 2 .?Essential (primary) hypertension - I10 3 . P ure hypercholesterolemia - E78.00 Plan: * Treatment: 2. E ssential (primary) hypertension L AB: Complete Blood Count Auto Diff (Collection Date & Time - 10/18/2024 07:00 AM) L AB: Comprehensive [place]. Panel Fast L AB: Lipid Panel L AB: PSA,Total (Free>4and<10) L AB: UA ClnCatch+Micro w/rflx Cult 3. P ure hypercholesterolemia L AB: Complete Blood Count Auto Diff (Collection Date & Time - 10/18/2024 07:00 AM) L AB: Comprehensive [place]. Panel Fast L AB: Lipid Panel L AB: PSA,Total (Free>4and<10) L AB: UA ClnCatch+Micro w/rflx Cult * Procedure Codes: 3 6415 VENIPUNCT, ROUTINE* * * The named appointment provid er may or may not be the originator of this progress note, and it is not deemed complete until electronically signed by the appointment provider. Sign off status: Pending * Provider: Ritchie Silvestre MD Date: 0 10/18/2024 Generated for Roger rosen/Alfonso/Giaitting on: 10/18/2024 11:47 AM EDT
[2024-10-18 11:14] LABS: MANUAL DIFF FLAG NO
[2024-10-18 11:30] LABS: Hematocrit 41.5 % (42.0-52.0); Hemoglobin 14.7 g/dl (14.0-18.0); Imm Gran Abs Auto 0.01 X10*3/uL (0.00-0.03); Imm Gran Pct Auto 0.2 % (0.0-0.4); Lymphocytes Absolute Auto 1.2 X10*3/uL (1.2-4.9); Mean Corpuscular HGB Conc 35.4 g/dl (31.0-36.0); Mean Corpuscular Hemoglobin 33.3 pg (27.0-33.0); Mean Corpuscular Volume 93.9 fL (80.0-98.0); NRBC Abs Auto 0.000 X10*3/uL (0.0-0.012); NRBC Pct Auto 0.0 /100WBC (0.0-0.2); Platelet Count 198 X10*3/uL (160-400); Red Blood Count 4.42 X10*6/uL (4.60-5.80); White Blood Count 5.5 X10*3/uL (4.8-10.8)
[2024-10-18 11:32] LABS: Appearance Urine Clear; Glucose Urine UA Negative (Negative); PH 7.5 (5.0-9.0); Specific Gravity - Urine 1.010 (1.005-1.025); UMIC TRIGGER UACC YES
[2024-10-18 11:54] LABS: UACC Culture Trigger YES
[2024-10-18 12:04] LABS: Alanine Aminotransferase 59 U/L (0-40); Albumin Level 4.5 g/dL (3.5-5.0); Alkaline Phosphatase 103 U/L (39-117); Anion Gap 12 (12-20); Aspartate Amino Transferase 38 U/L (5-37); Blood Urea Nitrogen 7 mg/dL (9-16); Calcium 8.9 mg/dL (8.4-10.2); Carbon Dioxide 27 mmol/L (22-29); Chloride 105 mmol/L (96-108); Cholesterol 185 mg/dL (<200); Estimated Glomerular Filt Rate > 60; HDL Cholesterol 51 mg/dL (>40); Potassium 4.1 mmol/L (3.3-5.1); Sodium 140 mmol/L (135-145); Total Protein 6.7 g/dL (6.5-8.0); Triglycerides 170 mg/dL (<150)
[2024-10-18 12:16] LABS: PSA,Total (Free>4and<10) 3.55 ng/mL (0.00-4.00)
== END 2024-10-18 11:10 | disposition home or self-care (01) ==
LOC: HO.LNP 11:09
PROVIDERS: Visit Provider Internal Medicine
DX: Z00.00 Encounter for general adult medical examination without abnormal findings (principal); Z12.5 Encounter for screening for malignant neoplasm of prostate; I10 Essential (primary) hypertension; E78.00 Pure hypercholesterolemia, unspecified
CPT/HCPCS: 80053; 80061; 81001; 84153; 85025; 87086

== ENCOUNTER 2024-10-22 07:57 | Outpatient (REF) | payer OTHER, SELFPAY ==
--- OUTSIDE RECORDS SUMMARY | 2024-10-18 03:00 | XMS_ITS ---
Author Organization Azael Silvestre MD Address [address] [place], [place] [phone] Care Team Providers Care Piece Hand Name Role Phone Azael Silvestre Primary Care Provider Results Component Value Reference Range Notes PSA,Total (Free>4and<10) (No t yet reviewed by provider) Interpretation:10-25-24 Performing Lab:[facility], [address] [place] [phone] Notes/Report: PSA,Total (Free>4and<10) 3.55 0.00-4.00 ng/mL A [...] between 4.0 and 10.0 ng/mL. PSA methodology: MeriTaleemnity i Chemiluminescent Microparticle Immunoassay (CMIA) Complete Blood Count Auto Di ff Reviewed date:10/18/2024 08:03:27 PM Interpretation: Performing Lab:[facility], [address] [place] [phone] Notes/Report: White Blood Count 5.5 4.8-10.8 X10*3/uL [...] Panel Reviewed date:10/18/2024 08:02:24 PM Interpretation: Performing Lab:[facility], [address] [place] [phone] Notes/Report: Triglycerides 170 <150 mg/dL Desirable Triglyceride: [...] low results in patients with liver disease. UA ClnCatch+Micro w/rflx Cul t Reviewed date:10/18/2024 08:02:44 PM Interpretation: Performing Lab:[facility], [address] [place] [phone] Notes/Report: Urine, Clean Catch Color Urine Yellow Appearance Urine Clear PH 7.5 5.0-9.0 Glucose Urine UA Negative Negative mg/dL Urine Blood Negative Negative Specific [place] - Urine 1.010 1.005-1.025 Urine Protein Negative [...] Date Provider Diagnosis Azael Silvestre MD [address] [place] [address] Drive [address] [place], [place] [phone] 10/18/2024 Azael Silvestre Blood tests for rout [...] Pending Test Test Name Order Date Comprehensive [place]. Panel Fast PSA,Total (Free>4and<10) 10/18/2024 Next Appt Details Provider Name:Azael Caceres ier, 10/25/2024 08:30:00 AM, [address] [place] [address], [place] [address], [place], [place], [phone], Progress Notes * Jaya BENITEZ MDOB:[birth year] (58 yo M)Acc No.[id number]:10/18/2024 Progress Note Patient: Jaya MCCRAY Provider: Ritchie Silvestre MD :1965 A ge:58 Y S ex:Male Date:10/18/2024 Address:[address] [place], [place] [phone] Subjective: * Chief Complaints: * 1 . FASTING LABS. * Medical History: Objective: * Vitals: Assessment: * Assessment: 1. B lood tests for routine general physical examination - Z00.00 (Primary) 2 .?Essential (primary) hypertension - I10 3 . P ure hypercholesterolemia - E78.00 Plan: * Treatment: 2. E ssential (primary) hypertension L AB: Comprehensive [place]. Panel Fast L AB: PSA,Total (Free>4and<10) (Collection Date & Time - 10/18/2024 07:00 AM) L AB: Complete Blood Count Auto Diff (Collection Date & Time - 10/18/2024 07:00 AM) L AB: Lipid Panel (Collection Date & Time - 10/18/2024 07:00 AM) L AB: UA ClnCatch+Micro w/rflx Cult (Collection Date & Time - 10/18/2024 07:00 AM) 3. P ure hypercholesterolemia L AB: Comprehensive [place]. Panel Fast L AB: PSA,Total (Free>4and<10) (Collection Date & Time - 10/18/2024 07:00 AM) L AB: Complete Blood Count Auto Diff [...] 0 10/18/2024 Generated for Roger rosen/Alfonso/Margaret on: 0 10/22/2024 08:00 AM EDT
--- NOTE | ~2024-10-22 | XR_ITS ---
CLINICAL HISTORY: otalgia 5 view skull Comparison: None provided Findings: No acute fractures or suspicious osseous lesion. Paranasal sinuses and mastoids are clear. No radiopaque foreign body. Unremarkable soft tissue. IMPRESSION: 1. No acute findings This document has been electronically signed by: Starr Lui MD on 10/22/2024 16:21:53
== END 2024-10-22 07:58 | disposition home or self-care (01) ==
LOC: HO.XRAY 07:57
PROVIDERS: PCP Internal Medicine; Visit Provider Physical Medicine & Rehabilitation
DX: H92.02 Otalgia, left ear (principal)
CPT/HCPCS: 70260

== ENCOUNTER → 2024-10-22 08:20 | Outpatient (BNV) | payer OTHER, SELFPAY | PROVIDERS: PCP Internal Medicine; Visit Provider Radiology Diagnostic Radiology | DX: H92.01 Otalgia, right ear (principal); H92.02 Otalgia, left ear | CPT/HCPCS: 70260 ==

== ENCOUNTER 2024-12-22 12:24 | Emergency (ER) | payer OTHER, SELFPAY ==
--- OUTSIDE RECORDS SUMMARY | 2024-01-31 12:30 | XMS_ITS ---
Author Organization Azael Silvestre MD Address [address] [place] [address] [place] [phone] Care Team Providers Care Correctional Treatment Specialist Name Role Phone Azael Silvestre Primary Care Provider [phone] REASON FOR VISIT 2 month Encounters Encounter Location Date Provider Diagnosis Azael Silvestre MD [address] [place] [address] [place] [phone] 01/31/2024 Azael Silvestre Plan Of Treatment Next Appt Details Provider Name:Azael foley, 02/15/2025 08:00:00 AM, [address] [place] [address], [address], [phone], Provider Name:Azael foley, 05/13/2025 07:45:00 AM, [address] [place] [address], [address], [phone], Provider Name:Azael foley, 05/20/2025 03:00:00 PM, [address] [place] [address], [address], [phone], Provider Name:Azael foley, 11/12/2025 07:30:00 AM, [address], [address], [place], [place], [phone], Provider Name:Azael Caceres ier, 11/19/2025 02:30:00 PM, [address], [address], [place], [place], [phone], Progress Notes * Jaya BENITEZ MDOB:[birth year] (59 yo M)Acc No.[id number]:01/31/2024 Progress Notes Patient: Ritchie MOORE Jaya Ila Provider: Ritchie Silvestre MD :1965 A ge:58 Y S ex:Male Date:01/31/2024 Address:[address] [place] [address] [address], [facility] Subjective: * Chief Complaints: * 1 . [...] Silvestre MD Date: 04/01/2023 Generated for Roger rosen/Alfonso/Giaitting on: 12:52 PM EDT
--- OUTSIDE RECORDS SUMMARY | 2024-04-20 03:00 | XMS_ITS ---
Author Organization Azael Silvestre MD Address [address] [place], [place] [phone] Care Team Providers Care Corporate Travel Expert Name Role Phone Azael Silvestre Primary Care Provider [phone] Results Component Value Reference Range Notes Liver Panel Reviewed date:04/20/2024 02:21:26 PM Interpretation: Performing Lab:[facility], [address] [place] [phone] Notes/Report: Bilirubin Total 1.3 0.0-1.0 mg/dL Bilirubin Direct 0.4 0.0-0.5 mg/dL Aspartate Amino Transferase 31 5-37 U/L Alanine Aminotransferase 45 0-40 U/L Total Protein 7.3 6.5-8.0 g/dL Albumin Level 4.5 3.5-5.0 g/dL Alkaline Phosphatase 83 39-117 U/L Lipid Panel with Reflex Reviewed date:04/20/2024 02:21:06 PM Interpretation: Performing Lab:[facility], [address] [place] [phone] Notes/Report: Triglycerides 130 <150 mg/dL Desirable Triglyceride: [...] Location Date Provider Diagnosis Azael Silvestre MD [address] [place] [phone] 04/20/2024 Azael Silvestre Pure hypercholestero lemia E78.00 Assessments Encounter Date Diagnosis (ICD Code) Assessment Notes Treatment Notes Treatment Clinical Notes Section Notes 04/20/2024 Pure hypercholesterolemia (ICD-10 - E78.00) Plan Of Treatment Next Appt Details Provider Name:Azael foley, 02/15/2025 08:00:00 AM, [address] [place] [address], [phone], Provider Name:Azael foley, 05/13/2025 07:45:00 AM, [address] [place] [address], [phone], Provider Name:Azael foley, 05/20/2025 03:00:00 PM, [address] [place] [address], [phone], Provider Name:Azael foley, 11/12/2025 07:30:00 AM, [address] [place] [address], [phone], Provider Name:Azael foley, 11/19/2025 02:30:00 PM, [address] [place] [address], [phone], Progress Notes * Jaya BENITEZ MDOB:[birth year] (59 yo M)Acc No.[id number]:04/20/2024 Progress Note Patient: Jaya MCCRAY Provider: Ritchie Silvestre MD :1965 A ge:58 Y S ex:Male Date:04/20/2024 Address:[address] [place] [address] [address] Subjective: * Chief Complaints: * 1 . [...] MD Date: 0 04/20/2024 Generated for Roger rosen/Alfonso/Fabianasmitting on: 1 12:53 PM EDT
--- OUTSIDE RECORDS SUMMARY | 2024-04-26 03:30 | XMS_ITS ---
Author Organization Azael Silvestre MD Address [address] [facility] [address] [place] [phone] Care Team Providers Care Sales Project Administrator Name Role Phone Azael Silvestre Primary Care Provider [phone] Allergies Allergen (clinical drug ingredient) Drug/Non Drug Allergy documented on EMR Reaction Allergy Type Onset Date Status simvastatin Simvastatin myalgia Drug Allergy Act dontae pravastatin Pravastatin Sodium reflux Drug Allergy Active ofloxacin floxin (uncoded) swelling Allergy Act dontae REASON FOR VISIT 6 MO F/U Encounters Encounter Location Date Provider Diagnosis Azael Silvestre MD [address] [place] [address] [place] [phone] 04/26/2024 Azael Silvestre Plan Of Treatment Next Appt Details Provider Name:Azael foley, 02/15/2025 08:00:00 AM, [address] [place] [address], [address], [phone], Provider Name:Azael foley, 05/13/2025 07:45:00 AM, [address] [place] [address], [phone], Provider Name:Azael riddler, 05/20/2025 03:00:00 PM, [address], [address], [place], [place], [phone], Provider Name:Azael foley, 11/12/2025 07:30:00 AM, [address], [address], [place], [phone], Provider Name:Azael riddler, 11/19/2025 02:30:00 PM, [address], [address], [place], [phone], Progress Notes * DAYANAJaya MDOB:[birth year] (59 yo M)Acc No.[id number]:04/26/2024 Progress Notes Patient: Jaya MCCRAY Provider: Ritchie Silvestre MD :1965 A ge:58 Y S ex:Male Date:04/26/2024 Address:[address] [place] [address] Subjective: * Chief Complaints: * 1 . [...] Pending * Provider: Ritchie Silvestre MD Date: 04/26/2024 Generated for Roger rosen/Alfonso/Margaret on: 1 12:53 PM EDT
--- OUTSIDE RECORDS SUMMARY | 2024-10-18 03:00 | XMS_ITS ---
Author Organization Azael Silvestre MD Address [address] [place], [place] [phone] Care Team Providers Care General Assignment Reporter Name Role Phone Azael Silvestre Primary Care Provider [phone] Results Component Value Reference Range Notes Complete Blood Count Auto Di ff Reviewed date:10/18/2024 08:03:27 PM Interpretation: Performing Lab:[facility], [address] [place] [phone] Notes/Report: White Blood Count 5.5 4.8-10.8 X10*3/uL [...] Panel Reviewed date:10/18/2024 08:02:24 PM Interpretation: Performing Lab:[address] [phone] Notes/Report: Triglycerides 170 <150 mg/dL Desirable Triglyceride: [...] (Free>4and<10) Reviewed date:11/15/2024 05:00:22 PM Interpretation:11-15-2024 Performing Lab:[address], [place] [phone] Notes/Report: PSA,Total (Free>4and<10) 3.55 0.00-4.00 ng/mL A [...] t Reviewed date:10/18/2024 08:02:44 PM Interpretation: Performing Lab:[facility], [address] [place] [phone] Notes/Report: Urine, Clean Catch Color Urine Yellow Appearance Urine Clear PH 7.5 5.0-9.0 Glucose Urine UA Negative Negative mg/dL Urine Blood Negative Negative Specific [place] - Urine 1.010 1.005-1.025 Urine Protein Negative [...] Location Date Provider Diagnosis Azael Silvestre MD [address] [place] [address] [address] [place], [place] [phone] 10/18/2024 Azael Silvestre Blood tests for rout [...] Pending Test Test Name Order Date Comprehensive [place]. Panel Fast Next Appt Details Provider Name:Azael Caceres ier, 02/15/2025 08:00:00 AM, [address], Suite [facility], [place], [place], [phone], Provider Name:Azael Caceres ier, 05/13/2025 07:45:00 AM, [address] [facility], Suite [facility], [place], [place], [phone], Provider Name:Azael Caceres ier, 05/20/2025 03:00:00 PM, [address] [place] [address], Suite [facility], [place], [phone], Provider Name:Azael Caceres ier, 11/12/2025 07:30:00 AM, [address] [place] [address], Suite [facility], [place], [phone], Provider Name:Azael Caceres ier, 11/19/2025 02:30:00 PM, [address] [place] [address], Suite [facility], [place], [phone], Progress Notes * Jaya BENITEZ MDOB:[birth year] (59 yo M)Acc No.[id number]:10/18/2024 Progress Note Patient: Jaya MCCRAY Provider: Ritchie Silvestre MD :1965 A ge:58 Y S ex:Male Date:10/18/2024 Address:[address] [place] [address] [address] Subjective: * Chief Complaints: * 1 . FASTING LABS. * Medical History: Objective: * Vitals: Assessment: * Assessment: 1. B lood tests for routine general physical examination - Z00.00 (Primary) 2 .?Essential (primary) hypertension - I10 3 . P ure hypercholesterolemia - E78.00 Plan: * Treatment: 2. E ssential (primary) hypertension L AB: Comprehensive [place]. Panel Fast L AB: Complete Blood Count Auto Diff (Collection Date & Time - 10/18/2024 07:00 AM) L AB: Lipid Panel (Collection Date & Time - 10/18/2024 07:00 AM) L AB: PSA,Total (Free>4and<10) (Collection Date & Time - 10/18/2024 07:00 AM) L AB: UA ClnCatch+Micro w/rflx Cult (Collection Date & Time - 10/18/2024 07:00 AM) 3. P ure hypercholesterolemia L AB: Comprehensive [place]. Panel Fast L AB: Complete Blood Count [...] 10/18/2024 Generated for Roger rosen/Alfonso/Margaret on: 1 12:52 PM EDT
--- OUTSIDE RECORDS SUMMARY | 2024-11-15 09:00 | XMS_ITS ---
Author Organization Azael Silvestre MD Address [address] [place] [phone] Care Team Providers Care Thermometer Maker Name Role Phone Azael Silvestre Primary [...] W/U Status Risk Notes Problem Auditory hallucinations ([id number]) Auditory hallucinations (R44.0) Active confirmed Vital Signs Blood pressure systolic 122 mm Hg 11/16/19 25 Blood pressure diastolic 80 mm Hg 025 Height 67 in 11/15/2024 Weight 198 lbs 11/15/2024 BMI 31.01 kg/m2 11/15/2024 weight is up 4 pounds since 12-22-23 Encounters Encounter Location Date Provider Diagnosis Azael Silvestre MD [address] [place] [address] [address] [place], [place] [phone] 11/15/2024 Azael Silvestre Annual physical exam Z00.00 [...] screening guaiac negative Depression screening negative screen Future Test Test Name Order Date PSA Free and Total 02/14/2025 Next Appt Details Provider Name:Azael foley, 02/15/2025 08:00:00 AM, [address] [place] [address], [address], [phone], Provider Name:Azael foley, 05/13/2025 07:45:00 AM, [address] [place] [address], [place] [address], [place], [place], [phone], Provider Name:Azael foley, 05/20/2025 03:00:00 PM, [address] [place] [address], [place] [address], [place], [place], [phone], Provider Name:Azael riddler, 11/12/2025 07:30:00 AM, [address], [address], [place], [phone], Provider Name:Azael Caceres ier, 11/19/2025 02:30:00 PM, [address], [address], [place], [phone], Progress Notes * Jaya BENITEZ MDOB:[birth year] (58 yo M)Acc No.[id number]:11/15/2024 Progress Notes Patient: Jaya MCCRAY Provider: Ritchie Silvestre MD :1965 A ge:58 Y S ex:Male Date:11/15/2024 Address:[address] [place] [address] [address], [id number] Subjective: * Chief Complaints: * A NNUAL [...] mg/dL Urine Blood Negative Negative - Specific [place] - Urine 1.010 1.005-1.025 - Urine Protein [...] MD Date: 0 11/15/2024 Generated for Roger rosen/Alfonso/Margaret on: 1 12:52 PM EDT History and Physical Notes * HPI (History [...]
--- NOTE | ~2024-12-22 | XR_ITS ---
CLINICAL HISTORY: acute left sided back pain 3 views lumbar spine Comparison: CR/SR - XR LUMBAR SPINE 2-3 VIEWS - 07/06/22 07:34 EDT Findings: Normal vertebral body alignment. No acute fractures or dislocation. Multilevel disc space narrowing and endplate osteophyte formation, as well as facet hypertrophy. Arterial vascular calcifications are present. IMPRESSION: No acute findings. This document has been electronically signed by: Denae Solomon MD on 12/22/2024 14:12:52
--- NOTE | 2024-12-22 12:31 | ED.GENADULT ---
HPI - General Adult General Chief complaint: Back Pain/Injury Stated complaint: Back Pain No Injury Time Seen by Provider: 12/22/24 13:07 Source: patient Mode of arrival: ambulatory Limitations: no limitations History of Present Illness ED Provider: HPI narrative: 59-year-old male with a longstanding history of back issues, states use to follow up with the specialist who is to inject his back has not been able to see him, for the past few days worsening left SI pain, states has prostate issues and not having any urinary retention or loss of bowel or bladder control, no numbness or weakness in the lower extremities, no new injections or surgeries to the back no fevers or chills. Related Data Home Medications ?Medication ?Instructions ?Recorded ?Confirmed spironolactone 50 mg tablet 50 mg PO DAILY 10/26/23 01/24/24 ibuprofen 800 mg tablet 800 mg PO Q8H PRN Pain (Scale 11/06/23 01/24/24 Score 1-3) aspirin 81 mg tablet,delayed 81 mg PO DAILY 01/24/24 01/24/24 release (Adult Aspirin Regimen) Previous Rx's ?Medication ?Instructions ?Recorded atorvastatin 80 mg tablet 80 mg PO BEDTIME #90 tabs 03/29/24 metoprolol tartrate 50 mg tablet 50 mg PO BID #180 tabs 03/29/24 cyclobenzaprine 5 mg tablet 5 mg PO TID PRN muscle spasm 2 12/22/24 days #7 tabs lidocaine 4 % topical patch 1 patch topical DAILY PRN pain 7 12/22/24 (Aspercreme (lidocaine)) days #10 ea naproxen 500 mg tablet 500 mg PO BID 5 days #10 tabs 12/22/24 oxycodone 5 mg tablet 5 mg PO Q6H PRN pain #10 tabs 12/22/24 Allergies Allergy/AdvReac Type Severity Reaction Status Date / Time ofloxacin (From Floxin) Allergy Unknown Anaphylaxis Verified 12/22/24 12:34 prednisone (Prednisone) AdvReac Unknown CONFUSION Verified 12/22/24 12:34 Review of Systems Constitutional: Constitutional: Reports as per HPI [facility] Past Medical History Medical History Other and unspecified hyperlipidemia Essential hypertension Atherosclerotic cardiovascular disease Surgical History History of heart artery stent Family History Family History Father Lung cancer Mother Alzheimer disease CVD (cardiovascular disease) Diabetes Social History Social History Household Members: None Household Members Other:: with dog and cat Alcohol intake: current Alcohol intake frequency: 0-2 drinks per day Alcohol type: beer Patient Tobacco Use Status: Former Tobacco user Tobacco use type: Cigarette Years Smoked: 15 +/- Smoked in Last 30 Days: No e-Cigarette/Vaping Use: Never Used Second Hand Smoke Exposure: No Use of substances other than those prescribed or required for medical reasons: No Advance Directives: No Advance Directives Information Provided: No Do you have a plan to hurt others: No Plan Current occupational status: employed 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 ?Resp: ?No wheezing rales rhonchi no stridor moving air well ? Abd: ?Bowel sounds are present, no tenderness no rebound no rigidity ? ?MSK: FROM, strength 5/5 all extremities, no sensory motor deficits bilateral lower extremities, left paraspinal tenderness as well as tenderness along SI ? Skin: Warm, dry, intact, ? ?Neuro: ?Alert and oriented x3, moving upper and lower extremities symmetrically, no obvious facial asymmetry noted, cranial nerves 2-12 intact Course Course Course Narrative: This is a Rapid Medical Examination (RME) performed by Boris Cabrera PA-C in triage. Full HPI, ROS, assessment and treatment plan per primary provider in the Main ED. Hx: 59 yo M hx of HTN, CAD, bipolar disorder here for acute on chronic back pain (L>R). hx of work related injury to L3/L4, no new injury/trauma. reports decreased urine output today. Took Tylenol this morning without improvement. reports he may have taken an extra metoprolol today. no saddle anesthesia, bowel or bladder incontinence, numbness/tingling/weakness of the lower extremities. Plan: labs, UA, xr Medications Administered Discontinued Medications Generic Name Dose Route Start Last Admin Trade Name Constanza PRN Reason Stop Dose Admin Hydromorphone HCl 1 mg 12/22/24 13:31 12/22/24 13:58 Hydromorphone Hcl 1 Mg/Ml Syringe IVPUSH 12/22/24 13:32 1 mg ONCE ONE Administration Protocol Ketorolac Tromethamine 15 mg 12/22/24 13:31 12/22/24 13:57 Ketorolac Tromethamine 15 Mg/Ml Vial IVPUSH 12/22/24 13:32 15 mg ONCE ONE Administration Medical Decision Making Medical Decision Making [facility] Narrative: 1:37 PM 12/22/2024 (Dr. Bruno Rose): In the past 1 year patient has had MRI of the back without any findings that would suggest compression on the spinal canal, does have compression of the nerve roots, and abdominal aorta was within normal contour, no infection risk factors to suggest diskitis osteomyelitis spinal epidural abscess, x-ray to evaluate for any destructive lesions or compression fractures, pain control otherwise anticipating discharge if workup is reassuring. Differential Diagnosis Differential Diagnoses: The differential diagnosis associated with the presentation includes (Diskitis, osteomyelitis, spinal epidural abscess, cauda equina, musculoskeletal pain) Admission/Observation Consideration of admission/observation: Escalation of care including admission/observation considered Lab Data [facility] Lab Attestation statement: I reviewed the patient's lab results. 12/22/24 13:16 12/22/24 13:16 Labs: Lab Results 12/22/24 Range/Units 13:16 WBC 9.3 (4.8-10.8) X10*3/uL RBC 4.90 (4.60-5.80) X10*6/uL Hgb 16.0 (14.0-18.0) g/dl Hct 45.7 (42.0-52.0) % MCV 93.3 (80.0-98.0) fL MCH 32.7 (27.0-33.0) pg MCHC 35.0 (31.0-36.0) g/dl RDW 12.5 (11.0-16.0) % Plt Count 216 (160-400) X10*3/uL MPV 9.9 (9.4-12.4) fL Immature Gran % (Auto) 0.3 (0.0-0.4) % Neut % (Auto) 75.6 H (45-73) % Lymph % (Auto) 13.5 L (20-40) % Humphreys % (Auto) 8.8 (2-11) % Eos % (Auto) 1.5 (0-4) % Baso % (Auto) 0.3 (0-2) % Lymph # (Auto) 1.3 (1.2-4.9) X10*3/uL Humphreys # (Auto) 0.8 (0.1-1.2) X10*3/uL Eos # (Auto) 0.1 (0.0-0.4) X10*3/uL Baso # (Auto) 0.0 (0.0-0.2) X10*3/uL Abs Immat Gran (auto) 0.03 (0.00-0.03) X10*3/uL Absolute Neuts (auto) 7.0 (2.0-8.3) x10*3/uL Absolute Nucleated RBC 0.000 (0.0-0.012) X10*3/uL Nucleated RBC % (auto) 0.0 (0.0-0.2) /100WBC Sodium 139 (135-145) mmol/L Potassium 4.7 (3.3-5.1) mmol/L Chloride 103 (96-108) mmol/L Carbon Dioxide 28 (22-29) mmol/L Anion Gap 13 (12-20) BUN 9 (9-16) mg/dL Creatinine 0.92 (0.5-1.4) mg/dL Estim Creat Clear Calc 91.5 Estimated GFR > 60 Random Glucose 124 H (60-115) mg/dL Calcium 10.1 D (8.4-10.2) mg/dL Magnesium 1.8 (1.6-2.6) mg/dL Total Bilirubin 1.5 H (0.0-1.0) mg/dL AST 41 H (5-37) U/L ALT 51 H (0-40) U/L Alkaline Phosphatase 116 (39-117) U/L Total Protein 7.6 (6.5-8.0) g/dL Albumin 5.2 H (3.5-5.0) g/dL Independent Interpretation I performed an independent interpretation of an: Plain X-Ray (Arthritic changes in the upper thoracic area, good joint spaces in the lumbar area no compressive or destructive lesions) Radiology Impression Discussion of test interpretation with radiology: I have reviewed the radiologist's reading. Radiologist Impression: IMPRESSION: No acute findings. Discharge Plan Discharge Clinical Impression: Lumbar radiculopathy Patient Disposition: Home, Self-Care Instructions: Lumbar Radiculopathy (ED) Additional Instructions: I recommend continuing ice and heat intermittently to your left lower back, I suspect you have a degree of spasm there, you cyclobenzaprine 5 mg every 8 hours needed for spasm do not take at the same time as oxycodone however you can space at least 3 hours apart, lidocaine patches to the area, continue with Naprosyn 500 mg twice a day, and Tylenol 975 mg every 6 hours, your x-ray with degenerative changes in the upper spine, no new fractures noted, loss of bowel or bladder function, spiking fevers, worsening pain come back to the ER otherwise follow up with the PCP Prescriptions: New lidocaine [Aspercreme (lidocaine)] 4 % adhesive patch,medicated 1 patch topical DAILY PRN (Reason: pain) 7 Days Qty: 10 0RF naproxen 500 mg tablet 500 mg PO BID 5 Days Qty: 10 0RF oxycodone 5 mg tablet 5 mg PO Q6H PRN (Reason: pain) Qty: 10 0RF Rx Instructions: Partial Fill upon patient request. cyclobenzaprine 5 mg tablet 5 mg PO TID PRN (Reason: muscle spasm) 2 Days Qty: 7 0RF No Action metoprolol tartrate 50 mg tablet 50 mg PO BID Qty: 180 3RF atorvastatin 80 mg tablet 80 mg PO BEDTIME Qty: 90 3RF ibuprofen 800 mg tablet 800 mg PO Q8H PRN (Reason: Pain (Scale Score 1-3)) spironolactone 50 mg tablet 50 mg PO DAILY aspirin [Adult Aspirin Regimen] 81 mg tablet,delayed release (DR/EC) 81 mg PO DAILY Print Language: Maldivian
[2024-12-22 12:32] VITALS: BP 141/90; PULSE 70; RESP 18; TEMP 36.4; O2SAT 96
--- OUTSIDE RECORDS SUMMARY | 2024-12-22 12:53 | XMS_ITS | Patient Health Record ---
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 Name Role Phone Azael Silvestre Primary Care Provider Allergies Allergen (clinical drug ingredient) Drug/Non Drug Allergy documented on EMR Reaction Allergy Type Onset Date Status simvastatin Simvastatin myalgia Drug Allergy Act dontae pravastatin Pravastatin Sodium reflux Drug Allergy Active ofloxacin floxin (uncoded) swelling Allergy Act dontae Results Component Value Reference Range Notes Potassium Reviewed date:01/12/2024 12:29:10 PM Interpretation: Performing Lab:[address] [id number] Notes/Report: Potassium 4.7 3.3-5.1 mmol/L Liver Panel Reviewed date:04/20/2024 02:21:26 PM Interpretation: Performing Lab:[address] [phone] Notes/Report: Bilirubin Total 1.3 0.0-1.0 mg/dL Bilirubin Direct 0.4 0.0-0.5 mg/dL Aspartate Amino Transferase 31 5-37 U/L Alanine Aminotransferase 45 0-40 U/L Total Protein 7.3 6.5-8.0 g/dL Albumin Level 4.5 3.5-5.0 g/dL Alkaline Phosphatase 83 39-117 U/L Lipid Panel with Reflex Reviewed date:04/20/2024 02:21:06 PM Interpretation: Performing Lab:[facility], [address] [place] [phone] Notes/Report: Triglycerides 130 <150 mg/dL Desirable Triglyceride: [...] low results in patients with liver disease. Complete Blood Count Auto Di ff Reviewed date:10/18/2024 08:03:27 PM Interpretation: Performing Lab:[facility], [address] [place] [phone] Notes/Report: White Blood Count 5.5 4.8-10.8 X10*3/uL [...] Panel Reviewed date:10/18/2024 08:02:24 PM Interpretation: Performing Lab:[address] [phone] Notes/Report: Triglycerides 170 <150 mg/dL Desirable Triglyceride: [...] (Free>4and<10) Reviewed date:11/15/2024 05:00:22 PM Interpretation:11-15-2024 Performing Lab:[address] [address] Notes/Report: PSA,Total (Free>4and<10) 3.55 0.00-4.00 ng/mL A [...] t Reviewed date:10/18/2024 08:02:44 PM Interpretation: Performing Lab:[facility], [address] [place] [phone] Notes/Report: Urine, Clean Catch Color Urine Yellow Appearance Urine Clear PH 7.5 5.0-9.0 Glucose Urine UA Negative Negative mg/dL Urine Blood Negative Negative Specific [place] - Urine 1.010 1.005-1.025 Urine Protein Negative Neg-Trace mg/dL Urine Ketones Negative Negative mg/dL Nitrite Urine Negative Negative Leukocyte Esterase Urine Small (1+) Negative RBC Urine 0-2 0-2 /HPF WBC Urine 0-5 0-5 /HPF Squamous Epithelial Cell Urine 0-2 0-2 /HPF Bacteria Urine 4+ None Seen Hyaline Casts Urine 0-2 0-2 /LPF Occult Blood, Stool, Guaiac Reviewed date:11/15/2024 01:46:45 PM Interpretation:Negative Performing Lab: Notes/Report: Negative Occult Blood, Stool, Guaiac Neg Hold Gold Reviewed date:04/20/2024 02:20:06 PM Interpretation: Performing Lab:[facility], [address] [place] [phone] Notes/Report: Hold Gold See Note Specimen held untested for 24 hours; Call to request Chemistry testing. XR thoracic spine 2V Reviewed date:05/11/2024 12:34:02 PM Interpretation: Performing Lab: Notes/Report: [address] [address] XRay Report Signed Patient: Jaya [place] MR#: [id number] 718 : 1965 Acct:[id number] Age/Sex: 58 / M ADM Date: 05/11/24 Loc: HOOrenXRAY Attending Dr: Francisco Cerda DO Ordering Physician: Francisco Cerda DO Date of Service: 05/11/24 Procedure(s): XR thoracic spine 2V Accession Number(s): [id number] cc: Azael Silvestre MD; Francisco Cerda DO EXAMINATION: XR THORACIC SPINE CLINICAL INFORMATION: PAIN THORACIC SPINE COMPARISON: None available. TECHNIQUE: 3 views of the thoracic spine were obtained. FINDINGS: Multilevel marginal osteophyte formation and endplate sclerosis decreased intervertebral disc height involving the mid to lower spine. No acute cortical disruption or gross malalignment. No lytic or blastic lesions. XR/XR thoracic spine 2V IMPRESSION: Multilevel lower thoracic spine spondylosis. Electronically signed by: Juan Carlos Quintana MD 05/11/2024 10:53 AM EST Dictated By: Juan Carlos Cruz MD Signed By: <Electronically signed by Juan Carlos Orellana MD in OV> 05/11/24 1053 DD/ 0846 TD/TT: 05/11/24 0853 Director Of Integrated Marketing: [place] [address] XRay Report Signed Patient: Ty [place] MR#: [id number] 718 : 1965 Acct:[id number] Age/Sex: 58 / M ADM Date: 05/11/24 Loc: HO.XRWILLIE Attending Dr: Francisco Cerda DO Ordering Physician: Francisco Cerda DO Date of Service: 05/11/24 Procedure(s): XR thoracic spine 2V Accession Number(s): [id number] cc: Azael Silvestre MD; Francisco Cerda DO EXAMINATION: XR THORACIC SPINE CLINICAL INFORMATION: PAIN THORACIC SPINE COMPARISON: None available. TECHNIQUE: 3 views of the thora cic spine were obtained. FINDINGS: Multilevel marginal osteophyte formation and endplate sclerosis decreased intervertebral disc height involving the mid to lower spine. No acute cortical disruption or gross malalignment. No lytic or blastic lesions. XR/XR thoracic spine 2V IMPRESSION: Multilevel lower thoracic spine spondylosis. Electronically vianca d by: Juan Carlos Quintana MD 05/11/2024 10:53 AM EST Dictated By: Juan Carlos Tamayo MD Signed By: <Electronically signed by Juan Carlos Orellana MD in OV> 05/11/24 1053 DD/ 0846 TD/TT: 05/11/24 0853 Director Of Integrated Marketing: Robert Clancy. Panel Reviewed date:10/18/2024 07:54:26 PM Interpretation: Performing Lab:[facility], [address] [place] [phone] Notes/Report: Sodium 140 135-145 mmol/L Potassium 4.1 3.3-5.1 mmol/L Chloride 105 96-108 mmol/L Carbon Dioxide 27 22-29 mmol/L Anion Gap 12 12-20 Blood Urea Nitrogen 7 9-16 mg/dL Creatinine 0.92 0.5-1.4 mg/dL Estimated Glomerular Filt Rate > 60 Chronic Kidney Disease: Estimated GFR < 60 mL/min/1.73m2 Severe Kidney Disease: Estimated GFR < 15 mL/min/1.73m2 Glucose Random 107 60-115 mg/dL Calcium 8.9 8.4-10.2 mg/dL Bilirubin Total 1.5 0.0-1.0 mg/dL Aspartate Amino Transferase 38 5-37 U/L Alanine Aminotransferase 59 0-40 U/L Total Protein 6.7 6.5-8.0 g/dL Albumin Level 4.5 3.5-5.0 g/dL Alkaline Phosphatase 103 39-117 U/L Urine Culture Reviewed date:10/20/2024 04:58:39 PM Interpretation: Performing Lab:[facility], [address] [place] [phone] Notes/Report: Urine Culture No growth. XR skull min 4V Reviewed date:10/22/2024 05:45:24 PM Interpretation: Performing Lab: Notes/Report: [address] [place] [address] XRay Report Signed Patient: Jaya [place] MR#: [id number] 718 : 1965 Acct:[id number] Age/Sex: 58 / M ADM Date: 10/22/24 Loc: KRYS Attending Dr: Francisco Cerda DO Ordering Physician: Francisco Cerda DO Date of Service: 10/22/24 Procedure(s): XR skull min 4V Accession Number(s): [id number] cc: Azael Silvestre MD; Francisco Cerda DO CLINICAL HISTORY: otalgia 5 view skull Comparison: None provided Findings: No acute fractures or suspicious osseous lesion. Paranasal sinuses and mastoids are clear. No radiopaque foreign body. Unremarkable soft tissue. IMPRESSION: 1. No acute findings This document has been electronically signed by: Starr Lui MD on 10/22/2024 16:21:53 Dictated By: Starr Lui MD Signed By: <Electronically signed by Starr Lui MD in OV> 10/22/24 1622 DD/ 162 TD/TT: 10/22/241620 Director Of Integrated Marketing: [place] [address] XRay Report Signed Patient: Ty [place] MR#: [id number] 718 : 1965 Acct:[id number] Age/Sex: 58 / M ADM Date: 10/22/24 Loc: KRYS Attending Dr: Francsico Cerda DO Ordering Physician: Francisco Cerda DO Date of Service: 10/22/24 Procedure(s): XR sku ll min 4V Accession Number(s): [id number] cc: Azael Silvestre MD; Francisco Cerda DO CLINICAL HISTORY: otalgia 5 view skull Comparison: None provided Findings: No acute fractures o r suspicious osseous lesion. Paranasal sinuses an d mastoids are clear. No radiopaque foreig n body. Unremarkable soft tissue. IMPRESSION: 1. No acute findings This document has be en electronically signed by: Starr Lui MD on 10/22/2024 16:21:53 Dictated By: Starr Lui MD Signed By: <Electronically signed by Starr Lui MD in OV> 10/22/24 1622 DD/ 1621 TD/TT: 10/22/241620 Director Of Integrated Marketing: Reason For Referral No Information Medications Medication SIG (Take, Route, Frequency, Duration) Notes Start Date End Date Status Aspirin 81 MG 1 tablet Orally Once [...] tablet Orall y Twice a day Active Spironolactone 50 MG 1 tablet Orally bid [...] a day for 14 days 09/17/2022 Unknown Immunizations Vaccine Route Administration Date Status Comme nts Fluarix Quadrivalent IM Intramuscular 11/26/2013 Administe red Flu Vaccine IM Intramuscular 12/13/2014 Administered PPSV23 (Pnemovax) IM Intramuscular 01/28/2015 Administered Fluarix Quadrivalent IM Intramuscular 01/05/2016 Administe red Shingles IM Intramuscular 04/20/2016 Administered Fluarix Quadrivalent IM Intramuscular 12/07/2016 Administe red Prevnar 13 IM Intramuscular 01/10/2017 Administered Fluarix Quadrivalent IM Intramuscular 12/29/2018 Administe red Fluarix Quadrivalent Unknown 03/13/2018 Refused Fluarix Quadrivalent Unknown 04/07/2020 Refused PPSV23 (Pnemovax) Unknown 04/07/2020 Refused Covid Vaccine Unknown 10/06/2020 Refused Fluarix Quadrivalent Unknown 01/16/2021 Refused Fluarix Quadrivalent - 150 Unknown 12/22/2023 Refused Influenza High Dose Unknown 11/15/2024 Refused Flu Vaccine Unknown 11/26/2013 Pending Social History Tobacco Use: Social History Observation [...] Problem Status W/U Status Risk Notes Problem 49274223 Anxiety (F41.9) Active confirmed Problem Gender identity disorder (30048983) Gender identity disorder, unspecified (F64.9) Active confirmed Problem Essential hypertension (81484157) Essential (primary) hypertension (I10) Active confirmed Problem 1925785 Lymphangitis (I89.1) Active confirmed Problem 43420049618823465 Acute recurren t maxillary sinusitis (J01.01) Active confirmed Problem 678202778 Lumbago with sci atica, left side (M54.42) Active confirmed Problem 419092049 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 Problem Disorder of breast (49825728) Disorder of breast, unspecified (N64.9) Active confirmed Problem Auditory hallucinations (13643585) Auditory hallucinations (R44.0) Active confirmed Problem 397983443 Body mass index (BMI) 31.0-31.9, adult (Z68.31) Active confirmed Problem 672840911 Lumbar disc dise ase (M51.9) Active confirmed Problem 30696144 [facility] syndrom e (E80.4) Active confirmed Problem 780244279 Environmental allergies (Z91.09) Active confirmed Problem 56853588 Memory loss (R41.3) Active confirmed Problem 3070988388507 Atherosclerosis of ruby coronary artery of ruby heart without angina pectoris (I25.10) Active confirmed Problem 875769047 History of coron lizbeth artery disease (Z86.79) Active confirmed Problem 357096672 Non-ST elevation [place] (NSTEMI) (I21.4) Active confirmed Problem 493418696 Tension headache (G44.209) Active confirmed Problem Allergic reaction caused by bee sting (disorder) (136619983) H/O bee sting allergy (Z91.030) Active confirmed Problem 047889292 Panic attack (F41.0) Active confirmed Problem 51786019 Peptic ulcer dis ease (K27.9) Active confirmed Problem 469516445 Pure hypercholesterolemia (E78.00) Active confirmed Problem 57466116 Bilateral carpal tunnel syndrome (G56.03) Active confirmed Problem 943849429 Lesion of tongue (K14.8) Active confirmed Problem 025818768 Arthritis of [place] d (M19.049) Active confirmed Problem 25071586 Bladder distenti on (N32.89) Active confirmed Problem 23333647 Thyroglossal gil t cyst (Q89.2) Active confirmed Problem 302646524 Cervical arthrit is (M47.812) Active confirmed Problem Disorder of urinary bladder (92757057) Bladder disorder (N32.9) Active confirmed Problem 5699819 Enlarged thyroid (E04.9) Active confirmed Problem 42038255 Dysfunction, kapil dder (N31.9) Active confirmed Problem 338601888 Paranoia (F22) Active confirmed Problem 685739272 Paranoid states (delusional disorders) (F22) Active confirmed Vital Signs Blood pressure diastolic 80 mm Hg 11/15/2024 jany ght is up 4 pounds since 12-22-23 Height 67 in 11/15/2024 weight is up 4 pounds since 12-22-23 Blood pressure systolic 122 mm Hg 11/15/2024 weig ht is up 4 pounds since 12-22-23 Weight 198 lbs 11/15/2024 weight is up 4 pounds since 12-22-23 BMI 31.01 kg/m2 11/15/2024 weight is up 4 pounds since 12-22-23 Encounters Encounter Location Date Provider Diagnosis Azael Silvestre MD [address] [place] [id number] 01/12/2024 Azael Silvestre Hyperkalemia E87.5 Azael Silvestre MD [address] [place] [id number] 04/20/2024 Azael Silvestre Pure hypercholestero lemia E78.00 Azael Silvestre MD [address] [place] [address] Drive [address] [place] [id number] 10/18/2024 Azael Silvestre Blood tests for rout ine general physical examination Z00.00 ; Essential (primary) hypertension I10 and Pure hypercholesterolemia E78.00 Azael Silvestre MD [address] [place] [address] Drive [address] [place] [id number] 11/15/2024 Azael Silvestre Annual physical exam Z00.00 ; Rising PSA level R97.20 ; Auditory hallucinations R44.0 ; Essential (primary) hypertension I10 ; Pure hypercholesterolemia E78.00 ; Colon cancer screening Z12.11 and Depression screening Z13.31 Assessments Encounter Date Diagnosis (ICD Code) Assessment Notes Treatment Notes Treatment Clinical Notes Section Notes 01/12/2024 Hyperkalemia (ICD-10 - E87.5) 04/20/2024 Pure hypercholesterolemia (ICD-10 - E78.00) 10/18/2024 [address] tests for [address] ine general physical examination (ICD-10 - Z00.00) 11/15/2024 Annual physical exam (ICD-10 - Z00.00) labs reviewed and discussed with patient 11/15/2024 Rising PSA level (IC D-10 - R97.20) had a decrease ijn his estrogen which may be related to his decrease in his estrogen. will recheck psa in 3 months 10/18/2024 Essential (primary) hypertension (ICD-10 - I10) 11/15/2024 Auditory hallucinati ons (ICD-10 - R44.0) has not agreed to any evaluation or treatment 10/18/2024 Pure hypercholesterolemia (ICD-10 - E78.00) 11/15/2024 Essential (primary) hypertension (ICD-10 - I10) stable, will continue current regiment 11/15/2024 Pure hypercholesterolemia (ICD-10 - E78.00) stale, will continue current regiment 11/15/2024 Colon cancer screeni ng (ICD-10 - Z12.11) guaiac negative 11/15/2024 Depression screening (ICD-10 - Z13.31) negative screen Plan Of Treatment Pending Test Test Name Order Date Electrocardiogram (EKG) 07/09/2016 US ABD 10/04/2023 Comprehensive [place]. Panel Fast CT soft tissue neck w con 04/13/2022 CT soft tissue neck wo/w con 04/09/2022 [place] barium swallow 05/14/2022 US bladder 08/10/2022 Next Appt Details Provider Name:Azael Caceres ier, 02/15/2025 08:00:00 AM, [address], [address], [place], [phone], Provider Name:Azael Caceres ier, 05/13/2025 07:45:00 AM, [address], [address], [place], [phone], Provider Name:Azael Wardmichael ier, 05/20/2025 03:00:00 PM, [address], [address], [place], [place], [phone], Provider Name:Azael Caceres ier, 11/12/2025 07:30:00 AM, [address] [place] [address], [address], [place], [place], [phone], Provider Name:Azael Caceres ier, 11/19/2025 02:30:00 PM, [address], [address], [place], [phone], Insurance Providers Payer Name Payer Address Payer Phone Subscriber Number Group Number Insured Name Patient Relationship to Insured Coverage Start Date Coverage End Date [facility] [address] [facility] [place] [phone] [id number] Jaya [place] Self - patient is the insured Medical (General) History Medical History History ICD Code 2014 patient refuses colonoscopy refuses any cholesterol drug negative cysto and ct 2017 negative cysto and cat scan refuses mammo
[2024-12-22 13:04] VITALS: BP 125/91; PULSE 72; RESP 16; TEMP 36.4; O2SAT 96
--- NOTE | 2024-12-22 13:07 | PC.NURSE ---
Patient presents to ED c/o back pain rated 9/10 Patient has hx of back issues, pain has just been getting worse lately and unable to see a PCP Patient has been using tylenol and ice at home with no effect. Vss and up to date Provider in to see patient Plan of care on going
[2024-12-22 13:19] LABS: MANUAL DIFF FLAG NO
[2024-12-22 13:21] LABS: Hematocrit 45.7 % (42.0-52.0); Hemoglobin 16.0 g/dl (14.0-18.0); Imm Gran Abs Auto 0.03 X10*3/uL (0.00-0.03); Imm Gran Pct Auto 0.3 % (0.0-0.4); Lymphocytes Absolute Auto 1.3 X10*3/uL (1.2-4.9); Mean Corpuscular HGB Conc 35.0 g/dl (31.0-36.0); Mean Corpuscular Hemoglobin 32.7 pg (27.0-33.0); Mean Corpuscular Volume 93.3 fL (80.0-98.0); NRBC Abs Auto 0.000 X10*3/uL (0.0-0.012); NRBC Pct Auto 0.0 /100WBC (0.0-0.2); Platelet Count 216 X10*3/uL (160-400); Red Blood Count 4.90 X10*6/uL (4.60-5.80); White Blood Count 9.3 X10*3/uL (4.8-10.8)
[2024-12-22 13:40] LABS: Alanine Aminotransferase 51 U/L (0-40); Albumin Level 5.2 g/dL (3.5-5.0); Alkaline Phosphatase 116 U/L (39-117); Anion Gap 13 (12-20); Aspartate Amino Transferase 41 U/L (5-37); Blood Urea Nitrogen 9 mg/dL (9-16); Calcium 10.1 mg/dL (8.4-10.2); Carbon Dioxide 28 mmol/L (22-29); Chloride 103 mmol/L (96-108); Creatinine Clr Calc Pharmacy 91.5; Estimated Glomerular Filt Rate > 60; Magnesium 1.8 mg/dL (1.6-2.6); Potassium 4.7 mmol/L (3.3-5.1); Sodium 139 mmol/L (135-145); Total Protein 7.6 g/dL (6.5-8.0)
[2024-12-22 15:01] VITALS: BP 142/92; PULSE 75; RESP 17; TEMP 36.4; O2SAT 96
[2024-12-22 15:02] VITALS: BP 142/92; PULSE 75; RESP 17; TEMP 36.4; O2SAT 96
== END 2024-12-22 15:02 | disposition home or self-care (01) ==
PROVIDERS: Physician Assistant Medical; Emergency Provider Emergency Medicine; PCP Internal Medicine
DX: M54.16 Radiculopathy, lumbar region (principal); M54.50 Low back pain, unspecified; Z79.899 Other long term (current) drug therapy; Z87.891 Personal history of nicotine dependence
CPT/HCPCS: 36415; 72100; 80053; 83735; 85025; 96374; 96375; 99284; J1171; J1885

== ENCOUNTER → 2024-12-22 12:34 | Outpatient (BNV) | payer OTHER, SELFPAY | PROVIDERS: Emergency Provider Emergency Medicine; PCP Internal Medicine; Visit Provider Radiology Diagnostic Radiology | DX: M54.50 Low back pain, unspecified (principal) | CPT/HCPCS: 72100 ==

== ENCOUNTER 2024-12-24 04:26 | Emergency (ER) | payer OTHER, SELFPAY ==
--- OUTSIDE RECORDS SUMMARY | 2024-01-31 12:30 | XMS_ITS ---
Author Organization Azael Silvestre MD Address [address] [place] [address] [place] [phone] Care Team Providers Care Manufacturing Industrial Engineer Name Role Phone Azael Silvestre Primary Care Provider REASON FOR VISIT 2 month Encounters Encounter Location Date Provider Diagnosis Azael Silvestre MD [address] [place] [address] [place] [phone] 01/31/2024 Azael Silvestre Plan Of Treatment Next Appt Details Provider Name:Azael foley, 02/15/2025 08:00:00 AM, [address] [place] [address], [address] [place] [address], [phone], Provider Name:Azael foley, 05/13/2025 07:45:00 AM, [address] [place] [address], [address], [phone], Provider Name:Azael foley, 05/20/2025 03:00:00 PM, [address] [place] [address], [address], [phone], Provider Name:Azael foley, 11/12/2025 07:30:00 AM, [address], [address], [place], [place], [phone], Provider Name:Azael Caceres ier, 11/19/2025 02:30:00 PM, [address], [address], [place], [place], [phone], Progress Notes * Jaya BENITEZ MDOB:[birth year] (59 yo M)Acc No.[id number]:01/31/2024 Progress Notes Patient: Ritchie SHRESTHAIla Jaya Ila Provider: Ritchie Silvestre MD :1965 A ge:58 Y S ex:Male Date:01/31/2024 Address:[address] [place] [address] [address], [facility] Subjective: * Chief Complaints: * 1 . [...] Date: 04/01/2023 Generated for Roger rosen/Alfonso/Giaitting on: 04:42 AM EDT
--- OUTSIDE RECORDS SUMMARY | 2024-04-20 03:00 | XMS_ITS ---
Author Organization Azael Silvestre MD Address [address] [place], [place] [phone] Care Team Providers Care Composing Room Machinist Name Role Phone Azael Silvestre Primary Care Provider Results Component Value Reference Range Notes Liver Panel Reviewed date:04/20/2024 02:21:26 PM Interpretation: Performing Lab:[facility], [address] [place] [phone] Notes/Report: Bilirubin Total 1.3 0.0-1.0 mg/dL Bilirubin Direct 0.4 0.0-0.5 mg/dL Aspartate Amino Transferase 31 5-37 U/L Alanine Aminotransferase 45 0-40 U/L Total Protein 7.3 6.5-8.0 g/dL Albumin Level 4.5 3.5-5.0 g/dL Alkaline Phosphatase 83 39-117 U/L Lipid Panel with Reflex Reviewed date:04/20/2024 02:21:06 PM Interpretation: Performing Lab:[facility], [address] [place] [phone] Notes/Report: Triglycerides 130 <150 mg/dL Desirable Triglyceride: [...] Location Date Provider Diagnosis Azael Silvestre MD [address] [place] [phone] 04/20/2024 Azael Silvestre Pure hypercholestero lemia E78.00 Assessments Encounter Date Diagnosis (ICD Code) Assessment Notes Treatment Notes Treatment Clinical Notes Section Notes 04/20/2024 Pure hypercholesterolemia (ICD-10 - E78.00) Plan Of Treatment Next Appt Details Provider Name:Azael foley, 02/15/2025 08:00:00 AM, [address] [place] [address], [phone], Provider Name:Azael foley, 05/13/2025 07:45:00 AM, [address] [place] [address], [phone], Provider Name:Azael foley, 05/20/2025 03:00:00 PM, [address] [place] [address], [phone], Provider Name:Azael foley, 11/12/2025 07:30:00 AM, [address] [place] [address], [phone], Provider Name:Azael foley, 11/19/2025 02:30:00 PM, [address] [place] [address], [phone], Progress Notes * Jaya BENITEZ MDOB:[birth year] (59 yo M)Acc No.[id number]:04/20/2024 Progress Note Patient: Jaya MCCRAY Provider: Ritchie Silvestre MD :1965 A ge:58 Y S ex:Male Date:04/20/2024 Address:[address] [place] [address] [address] Subjective: * Chief Complaints: * 1 . [...] 04/20/2024 Generated for Roger rosen/Alfonso/Fabianasmitting on: 1 04:42 AM EDT
--- OUTSIDE RECORDS SUMMARY | 2024-04-26 03:30 | XMS_ITS ---
Author Organization Azael Silvestre MD Address [address] [place] [address] [phone] Care Team Providers Care Sales And Distribution Clerk Name Role Phone Azael Silvestre Primary Care Provider Allergies Allergen (clinical drug ingredient) Drug/Non Drug Allergy documented on EMR Reaction Allergy Type Onset Date Status simvastatin Simvastatin myalgia Drug Allergy Act dontae pravastatin Pravastatin Sodium reflux Drug Allergy Active ofloxacin floxin (uncoded) swelling Allergy Act dontae REASON FOR VISIT 6 MO F/U Encounters Encounter Location Date Provider Diagnosis Azael Silvestre MD [address] [place] [address] [place] [phone] 04/26/2024 Azael Silvestre Plan Of Treatment Next Appt Details Provider Name:Azael foley, 02/15/2025 08:00:00 AM, [address] [place] [address], [place] [address], [place], [place], [phone], Provider Name:Azael foley, 05/13/2025 07:45:00 AM, [address] [place] [address], [phone], Provider Name:Azael riddler, 05/20/2025 03:00:00 PM, [address], [address], [place], [place], [phone], Provider Name:Azael foley, 11/12/2025 07:30:00 AM, [address], [address], [place], [phone], Provider Name:Azael riddler, 11/19/2025 02:30:00 PM, [address], [address], [place], [phone], Progress Notes * DAYANAJaya MDOB:[birth year] (59 yo M)Acc No.[id number]:04/26/2024 Progress Notes Patient: Jaya MCCRAY Provider: Ritchie Silvestre MD :1965 A ge:58 Y S ex:Male Date:04/26/2024 Address:[address] [place] [address] Subjective: * Chief Complaints: * 1 . [...] Silvestre MD Date: 04/26/2024 Generated for Roger rosen/Alfonso/Giaitting on: 1 04:43 AM EDT
--- OUTSIDE RECORDS SUMMARY | 2024-10-18 03:00 | XMS_ITS ---
Author Organization Azael Silvestre MD Address [address] [place], [place] [phone] Care Team Providers Care Hydraulic Rubbish Compactor Mechanic Name Role Phone Azael Silvestre Primary Care Provider Results Component Value Reference Range Notes Complete Blood Count Auto Di ff Reviewed date:10/18/2024 08:03:27 PM Interpretation: Performing Lab:[facility], [address] [place] [phone] Notes/Report: White Blood Count 5.5 4.8-10.8 X10*3/uL [...] Panel Reviewed date:10/18/2024 08:02:24 PM Interpretation: Performing Lab:[address] [phone] Notes/Report: Triglycerides 170 <150 mg/dL Desirable Triglyceride: [...] (Free>4and<10) Reviewed date:11/15/2024 05:00:22 PM Interpretation:11-15-2024 Performing Lab:[address], [place] [address] Notes/Report: PSA,Total (Free>4and<10) 3.55 0.00-4.00 ng/mL A [...] t Reviewed date:10/18/2024 08:02:44 PM Interpretation: Performing Lab:[facility], [address] [place] [phone] Notes/Report: Urine, Clean Catch Color Urine Yellow Appearance Urine Clear PH 7.5 5.0-9.0 Glucose Urine UA Negative Negative mg/dL Urine Blood Negative Negative Specific [place] - Urine 1.010 1.005-1.025 Urine Protein Negative [...] Date Provider Diagnosis Azael Silvestre MD [address] [place] [address] [address] [place], [place] [phone] 10/18/2024 Azael Silvestre Blood tests for rout [...] Pending Test Test Name Order Date Comprehensive [place]. Panel Fast Next Appt Details Provider Name:Azael Caceres ier, 02/15/2025 08:00:00 AM, [address], Suite [facility], [place], [place], [phone], Provider Name:Azael Caceres ier, 05/13/2025 07:45:00 AM, [address] [facility], [address] [facility], [place], [place], [phone], Provider Name:Azael Caceres ier, 05/20/2025 03:00:00 PM, [address] [place] [address], Suite [facility], [place], [phone], Provider Name:Azael Caceres ier, 11/12/2025 07:30:00 AM, [address] [place] [address], Suite [facility], [place], [phone], Provider Name:Azael Caceres ier, 11/19/2025 02:30:00 PM, [address] [place] [address], Suite [facility], [place], [phone], Progress Notes * Jaya BENITEZ MDOB:[birth year] (59 yo M)Acc No.[id number]:10/18/2024 Progress Note Patient: Jaya MCCRAY Provider: Ritchie Silvestre MD :1965 A ge:58 Y S ex:Male Date:10/18/2024 Address:[address] [place] [address] [address] Subjective: * Chief Complaints: * 1 . FASTING LABS. * Medical History: Objective: * Vitals: Assessment: * Assessment: 1. B lood tests for routine general physical examination - Z00.00 (Primary) 2 .?Essential (primary) hypertension - I10 3 . P ure hypercholesterolemia - E78.00 Plan: * Treatment: 2. E ssential (primary) hypertension L AB: Comprehensive [place]. Panel Fast L AB: Complete Blood Count Auto Diff (Collection Date & Time - 10/18/2024 07:00 AM) L AB: Lipid Panel (Collection Date & Time - 10/18/2024 07:00 AM) L AB: PSA,Total (Free>4and<10) (Collection Date & Time - 10/18/2024 07:00 AM) L AB: UA ClnCatch+Micro w/rflx Cult (Collection Date & Time - 10/18/2024 07:00 AM) 3. P ure hypercholesterolemia L AB: Comprehensive [place]. Panel Fast L AB: Complete Blood Count [...] MD Date: 0 10/18/2024 Generated for Roger rosen/Alfonso/Margaret on: 1 04:42 AM EDT
--- OUTSIDE RECORDS SUMMARY | 2024-11-15 09:00 | XMS_ITS ---
Author Organization Azael Silvestre MD Address [address] [place] [phone] Care Team Providers [employer] Name Role Phone Azael Silvestre Primary Care Provider [phone] Allergies Allergen (clinical drug ingredient) Drug/Non Drug [...] W/U Status Risk Notes Problem Auditory hallucinations (06620976) Auditory hallucinations (R44.0) Active confirmed Vital Signs Blood pressure systolic 122 mm Hg 11/16/19 25 Blood pressure diastolic 80 mm Hg 025 Height 67 in 11/15/2024 Weight 198 lbs 11/15/2024 BMI 31.01 kg/m2 11/15/2024 weight is up 4 pounds since 12-22-23 Encounters Encounter Location Date Provider Diagnosis Azael Silvestre MD [address] [place] [address] [address] [place], [place] [id number] 11/15/2024 Azael Silvestre Annual physical exam Z00.00 [...] Details Provider Name:Azael foley, 02/15/2025 08:00:00 AM, [address] [place] [address], [address], [phone], Provider Name:Azael foley, 05/13/2025 07:45:00 AM, [address] [place] [address], [place] [address], [place], [place], [phone], Provider Name:Azael foley, 05/20/2025 03:00:00 PM, [address] [place] [address], [place] [address], [place], [place], [phone], Provider Name:Azael riddler, 11/12/2025 07:30:00 AM, [address], [address], [place], [id number], Provider Name:Azael Caceres ier, 11/19/2025 02:30:00 PM, [address], [address], [place], [id number], Progress Notes * Jaya BENITEZ MDOB:[birth year] (58 yo M)Acc No.[id number]:11/15/2024 Progress Notes Patient: Jaya MCCRAY Provider: Ritchie Silvestre MD :1965 A ge:58 Y S ex:Male Date:11/15/2024 Address:[address] [place] [address] [address], [id number] Subjective: * Chief Complaints: * A NNUAL [...] mg/dL Urine Blood Negative Negative - Specific [place] - Urine 1.010 1.005-1.025 - Urine Protein [...] 11/15/2024 Generated for Roger rosen/Alfonso/Margaret on: 1 04:42 AM EDT History and Physical Notes * HPI [...]
[2024-12-24 04:34] VITALS: BP 142/85; PULSE 75; RESP 18; TEMP 36.3; O2SAT 98; BMI 30.4
--- OUTSIDE RECORDS SUMMARY | 2024-12-24 04:43 | XMS_ITS | Patient Health Record ---
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 Name Role Phone Azael Silvestre Primary Care Provider Allergies Allergen (clinical drug ingredient) Drug/Non Drug Allergy documented on EMR Reaction Allergy Type Onset Date Status simvastatin Simvastatin myalgia Drug Allergy Act dontae pravastatin Pravastatin Sodium reflux Drug Allergy Active ofloxacin floxin (uncoded) swelling Allergy Act dontae Results Component Value Reference Range Notes Potassium Reviewed date:01/12/2024 12:29:10 PM Interpretation: Performing Lab:[address] [address] Notes/Report: Potassium 4.7 3.3-5.1 mmol/L Liver Panel Reviewed date:04/20/2024 02:21:26 PM Interpretation: Performing Lab:[address] [address] Notes/Report: Bilirubin Total 1.3 0.0-1.0 mg/dL Bilirubin Direct 0.4 0.0-0.5 mg/dL Aspartate Amino Transferase 31 5-37 U/L Alanine Aminotransferase 45 0-40 U/L Total Protein 7.3 6.5-8.0 g/dL Albumin Level 4.5 3.5-5.0 g/dL Alkaline Phosphatase 83 39-117 U/L Lipid Panel with Reflex Reviewed date:04/20/2024 02:21:06 PM Interpretation: Performing Lab:[facility], [address] [place] [phone] Notes/Report: Triglycerides 130 <150 mg/dL Desirable Triglyceride: [...] ff Reviewed date:10/18/2024 08:03:27 PM Interpretation: Performing Lab:[facility], [address] [place] [phone] Notes/Report: White Blood Count 5.5 4.8-10.8 X10*3/uL [...] Panel Reviewed date:10/18/2024 08:02:24 PM Interpretation: Performing Lab:[address] [address] Notes/Report: Triglycerides 170 <150 mg/dL Desirable Triglyceride: [...] (Free>4and<10) Reviewed date:11/15/2024 05:00:22 PM Interpretation:11-15-2024 Performing Lab:[address] [address] Notes/Report: PSA,Total (Free>4and<10) 3.55 0.00-4.00 ng/mL A [...] t Reviewed date:10/18/2024 08:02:44 PM Interpretation: Performing Lab:[facility], [address] [place] [phone] Notes/Report: Urine, Clean Catch Color Urine Yellow Appearance Urine Clear PH 7.5 5.0-9.0 Glucose Urine UA Negative Negative mg/dL Urine Blood Negative Negative Specific [place] - Urine 1.010 1.005-1.025 Urine Protein Negative [...] Gold Reviewed date:04/20/2024 02:20:06 PM Interpretation: Performing Lab:[facility], [address] [place] [phone] Notes/Report: Hold Gold See Note Specimen held untested for 24 hours; Call to request Chemistry testing. XR thoracic spine 2V Reviewed date:05/11/2024 12:34:02 PM Interpretation: Performing Lab: Notes/Report: [address] [address] XRay Report Signed Patient: Jaya Finley MR#: [id number] 718 : 1965 Acct:[id number] Age/Sex: 58 / M ADM Date: 05/11/24 Loc: HOOrenXRAY Attending Dr: Francisco Cerda DO Ordering Physician: Francisco Cerda DO Date of Service: 05/11/24 Procedure(s): XR thoracic spine 2V Accession Number(s): [id number] cc: Azael Silvestre MD; Francisco Cerda DO [...] 05/11/24 1053 DD/ 0846 TD/TT: 05/11/24 0853 Food Stand Manager: [place] [address] XRay Report Signed Patient: Ty Finley MR#: [id number] 718 : 1965 Acct:[id number] Age/Sex: 58 / M ADM Date: 05/11/24 Loc: HO.XRWILLIE Attending Dr: Francisco Cerda DO Ordering Physician: Francisco Cerda DO Date of Service: 05/11/24 Procedure(s): XR thoracic spine 2V Accession Number(s): [id number] cc: Azael Silvestre MD; Francisco Cerda DO [...] 05/11/24 1053 DD/ 0846 TD/TT: 05/11/24 0853 Food Stand Manager: Robert Clancy. Panel Reviewed date:10/18/2024 07:54:26 PM Interpretation: Performing Lab:[facility], [address] [place] [phone] Notes/Report: Sodium 140 135-145 mmol/L Potassium 4.1 [...] Culture Reviewed date:10/20/2024 04:58:39 PM Interpretation: Performing Lab:[facility], [address] [place] [phone] Notes/Report: Urine Culture No growth. XR skull min 4V Reviewed date:10/22/2024 05:45:24 PM Interpretation: Performing Lab: Notes/Report: [address] [place] [address] XRay Report Signed Patient: Jaya Finley MR#: [id number] 718 : 1965 Acct:[id number] Age/Sex: 58 / M ADM Date: 10/22/24 Loc: KRYS Attending Dr: Francisco Cerda DO Ordering Physician: Francisco Cerda DO Date of Service: 10/22/24 Procedure(s): XR skull min 4V Accession Number(s): [id number] cc: Azael Silvestre MD; Francisco Cerda DO [...] OV> 10/22/24 1622 DD/ 162 TD/TT: 10/22/241620 Food Stand Manager: [place] [address] XRay Report Signed Patient: Ty Finley MR#: [id number] 718 : 1965 Acct:[id number] Age/Sex: 58 / M ADM Date: 10/22/24 Loc: KRYS Attending Dr: Francisco Cerda DO Ordering Physician: Francisco Cerda DO Date of Service: 10/22/24 Procedure(s): XR sku ll min 4V Accession Number(s): [id number] cc: Azael Silvestre MD; Francisco Cerda DO [...] Lui MD in OV> 10/22/24 1622 DD/ 20 TD/TT: 10/22/241620 Food Stand Manager: Complete Blood Count Auto Di ff Reviewed date:12/22/2024 05:27:44 PM Interpretation: Performing Lab:[facility], [address] [place] [phone] Notes/Report: White Blood Count 9.3 4.8-10.8 X10*3/uL Red Blood Count 4.90 4.60-5.80 X10*6/uL Hemoglobin 16.0 14.0-18.0 g/dl Hematocrit 45.7 42.0-52.0 % Mean Corpuscular Volume 93.3 80.0-98.0 fL Mean Corpuscular Hemoglobin 32.7 27.0-33.0 pg Mean Corpuscular HGB Conc 35.0 31.0-36.0 g/dl Red Cell Distribution Width 12.5 11.0-16.0 % Platelet Count 216 160-400 X10*3/uL Mean Platelet Volume 9.9 9.4-12.4 fL Neutrophils Percent Auto 75.6 45-73 % Imm Gran Pct Auto 0.3 0.0-0.4 % Lymphocytes Percent Auto 13.5 20-40 % Monocytes Percent Auto 8.8 2-11 % Eosinophils Percent Auto 1.5 0-4 % Basophils Percent Auto 0.3 0-2 % NRBC Pct Auto 0.0 0.0-0.2 /100WBC Neutrophils Absolute Auto 7.0 2.0-8.3 x10*3/u L Imm Gran Abs Auto 0.03 0.00-0.03 X10*3/uL Lymphocytes Absolute Auto 1.3 1.2-4.9 X10*3/u L Monocytes Absolute Auto 0.8 0.1-1.2 X10*3/uL Eosinophils Absolute Auto 0.1 0.0-0.4 X10*3/u L Basophils Absolute Auto 0.0 0.0-0.2 X10*3/uL NRBC Abs Auto 0.000 0.0-0.012 X10*3/uL Comprehensive Met. Panel Reviewed date:12/22/2024 05:27:28 PM Interpretation: Performing Lab:[facility], [address] [place] [phone] Notes/Report: Sodium 139 135-145 mmol/L Potassium 4.7 3.3-5.1 mmol/L Chloride 103 96-108 mmol/L Carbon Dioxide 28 22-29 mmol/L Anion Gap 13 12-20 Blood Urea Nitrogen 9 9-16 mg/dL Creatinine 0.92 0.5-1.4 mg/dL Creatinine Clr Calc Pharmacy 91.5 eGFR (calculated from the MDRD study equation) and eCrCl (calculated from the Cockcroft-Gault equation) are based on different parameters and may not yield comparable results. If eCrCl result is absurd, please check patient's height/weight. Estimated Glomerular Filt Rate > 60 Chronic Kidney Disease: Estimated GFR < 60 mL/min/1.73m2 Severe Kidney Disease: Estimated GFR < 15 mL/min/1.73m2 Glucose Random 124 60-115 mg/dL Calcium 10.1 8.4-10.2 mg/dL Bilirubin Total 1.5 0.0-1.0 mg/dL Aspartate Amino Transferase 41 5-37 U/L Alanine Aminotransferase 51 0-40 U/L Total Protein 7.6 6.5-8.0 g/dL Albumin Level 5.2 3.5-5.0 g/dL Alkaline Phosphatase 116 39-117 U/L Magnesium Reviewed date:12/22/2024 05:26:24 PM Interpretation: Performing Lab:[address] [phone] Notes/Report: Magnesium 1.8 1.6-2.6 mg/dL XR lumbar spine 2-3V Reviewed date:12/22/2024 05:24:53 PM Interpretation: Performing Lab: Notes/Report: [address] [address] XRay Report Signed Patient: Jaya Finley MR#: [id number] 718 : 1965 Acct:[id number] Age/Sex: 59 / M ADM Date: 12/22/24 Loc: .ED Attending Dr: Ordering Physician: Amina Cabrera Date of Service: 12/22/24 Procedure(s): XR lumbar spine 2-3V Accession Number(s): [id number] cc: Azael Silvestre MD; Amina Cabrera Reason for Exam: acute left sided back pain CLINICAL HISTORY: acute left sided back pain 3 views lumbar spine Comparison: CR/SR - XR LUMBAR SPINE 2-3 VIEWS - 07/06/22 07:34 EDT Findings: Normal vertebral body alignment. No acute fractures or dislocation. Multilevel disc space narrowing and endplate osteophyte formation, as well as facet hypertrophy. Arterial vascular calcifications are present. IMPRESSION: No acute findings. This document has been electronically signed by: Denae Solomon MD on 12/22/2024 14:12:52 Dictated By: Denae Solomon MD Signed By: <Electronically signed by Denae Solomon MD in OV> 12/22/24 141 DD/ 11 TD/TT: 12/22/241411 Food Stand Manager: [address] [address] XRay Report Signed Patient: Ty Finley MR#: [id number] 718 : 1965 Acct:[id number] Age/Sex: 59 / M ADM Date: 12/22/24 Loc: HO.ED Attending Dr: Ordering Physician: Amina Cabrera Date of Service: 12/22/24 Procedure(s): XR lum bar spine 2-3V Accession Number(s): [id number] cc: Azael Silvestre MD; Amina Cabrera Reason for Exam: acu te left sided back pain CLINICAL HISTORY: ac saxman left sided back pain 3 views lumbar spine Comparison: CR/SR - XR LUMBAR SPINE 2-3 VIEWS - 07/06/22 07:34 EDT Findings: Normal vertebral bod y alignment. No acute fractures o r dislocation. Multilevel disc spac e narrowing and endplate osteophyte formation, as well as facet hypertrophy. Arterial vascular calcifications are present. IMPRESSION: No acute findings. This document has be en electronically signed by: Denae Solomon MD on 12/22/2024 14:12:52 Dictated By: Denae Solomon MD Signed By: <Electronically signed by Denae Solomon MD in OV> 12/22/24 1414 DD/ 11 TD/TT: 10/11/25 1412 Food Stand Manager: Reason For Referral No Information Medications Medication [...] Problem Status W/U Status Risk Notes Problem 85814286 Anxiety (F41.9) Active confirmed Problem Gender identity disorder (37920172) Gender identity disorder, unspecified (F64.9) Active confirmed Problem Essential hypertension (85161651) Essential (primary) hypertension (I10) Active confirmed Problem 3400161 Lymphangitis (I89.1) Active confirmed Problem 89209672738694455 Acute recurren t maxillary sinusitis (J01.01) Active confirmed Problem 709299767 Lumbago with sci atica, left side (M54.42) Active confirmed Problem 269570201 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 Problem Disorder of breast (50751032) Disorder of breast, unspecified (N64.9) Active confirmed Problem Auditory hallucinations (66480321) Auditory hallucinations (R44.0) Active confirmed Problem 293112796 Body mass index (BMI) 31.0-31.9, adult (Z68.31) Active confirmed Problem 777791809 Lumbar disc dise ase (M51.9) Active confirmed Problem 27580193 [place] syndrom e (E80.4) Active confirmed Problem 268883663 Environmental allergies (Z91.09) Active confirmed Problem 08944843 Memory loss (R41.3) Active confirmed Problem 6768282120768 Atherosclerosis of [place] coronary artery of [place] heart without angina pectoris (I25.10) Active confirmed Problem 090692485 History of coron lizbeth artery disease (Z86.79) Active confirmed Problem 812435061 Non-ST elevation NM (NSTEMI) (I21.4) Active confirmed Problem 731905273 Tension headache (G44.209) Active confirmed Problem Allergic reaction caused by bee sting (disorder) (928749742) H/O bee sting allergy (Z91.030) Active confirmed Problem 086619973 Panic attack (F41.0) Active confirmed Problem 90754177 Peptic ulcer dis ease (K27.9) Active confirmed Problem 573401871 Pure hypercholesterolemia (E78.00) Active confirmed Problem 18514737 Bilateral carpal tunnel syndrome (G56.03) Active confirmed Problem 694427420 Lesion of tongue (K14.8) Active confirmed Problem 893421875 Arthritis of [place] d (M19.049) Active confirmed Problem 40921408 Bladder distenti on (N32.89) Active confirmed Problem 38404399 Thyroglossal gil t cyst (Q89.2) Active confirmed Problem 245184005 Cervical arthrit is (M47.812) Active confirmed Problem Disorder of urinary bladder (26271394) Bladder disorder (N32.9) Active confirmed Problem 3626218 Enlarged thyroid (E04.9) Active confirmed Problem 83926741 Dysfunction, kapil dder (N31.9) Active confirmed Problem 298929815 Paranoia (F22) Active confirmed Problem 435610718 Paranoid states (delusional disorders) (F22) Active confirmed [...] Location Date Provider Diagnosis Azael Silvestre MD [address] [place] [id number] 01/12/2024 Azael Silvestre Hyperkalemia E87.5 Azael Silvestre MD [address] [place] [address] Drive [address] [place] [id number] 04/20/2024 Azael Silvestre Pure hypercholestero lemia E78.00 Azael Silvestre MD [address] [place] [id number] 10/18/2024 Azael Silvestre Blood tests for rout ine general physical examination Z00.00 ; Essential (primary) hypertension I10 and Pure hypercholesterolemia E78.00 Azael Silvestre MD [address] [place], [place] [phone] 11/15/2024 Azael Silvestre Annual physical exam Z00.00 [...] Electrocardiogram (EKG) 07/09/2016 US ABD 10/04/2023 Comprehensive [place]. Panel Fast CT soft tissue neck w con 04/13/2022 CT soft tissue neck wo/w con 04/09/2022 [place] barium swallow 05/14/2022 US bladder 08/10/2022 Next Appt Details Provider Name:Azael Caceres ier, 02/15/2025 08:00:00 AM, [address], [address], [place], [phone], Provider Name:Azael Caceres ier, 05/13/2025 07:45:00 AM, [address], [address], [place], [phone], Provider Name:Azael Caceres ier, 05/20/2025 03:00:00 PM, [address], [address], [place], [phone], Provider Name:Azael Caceres ier, 11/12/2025 07:30:00 AM, [address], [address], [place], [phone], Provider Name:Azael Caceres janessar, 11/19/2025 02:30:00 PM, [address] [place] [address] Drive, [address], [place], [phone], Insurance Providers Payer Name Payer Address Payer Phone Subscriber Number Group Number Insured Name Patient Relationship to Insured Coverage Start Date Coverage End Date [address] [facility] [place] [phone] [id number] Jaya Finley Self - patient is the insured Medical (General) History Medical History History ICD Code 2014 patient refuses colonoscopy refuses any cholesterol drug negative cysto and ct 2017 negative cysto and cat scan refuses mammo
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
[2024-12-24 07:04] VITALS: BP 119/60; PULSE 70; RESP 20; O2SAT 97
[2024-12-24 09:47] VITALS: BP 119/60; PULSE 70; RESP 20; TEMP -17.7; TEMP 0; O2SAT 97
== END 2024-12-24 09:47 | disposition home or self-care (01) ==
PROVIDERS: Emergency Provider Emergency Medicine; PCP Internal Medicine
DX: G89.29 Other chronic pain (principal); M54.42 Lumbago with sciatica, left side; R33.9 Retention of urine, unspecified; I10 Essential (primary) hypertension; Z88.1 Allergy status to other antibiotic agents
CPT/HCPCS: 51798; 96372; 99284; J1171; J1885

== ENCOUNTER 2025-01-23 10:58 | Outpatient (AMB) | payer OTHER, SELFPAY ==
[2025-01-23 12:32] VITALS: BP 128/68; PULSE 68; BMI 30.2
--- NOTE | 2025-01-23 12:32 | A.OFFVIS_ITS ---
Vital Signs 01/23/25 12:32 Height 5 ft 8 in Weight 198 lb 6.656 oz BMI 30.2 BP 128/68 Blood Pressure Location Lt brachial Position Sitting Pulse 68 Pulse Source Pulse Oximeter Intake Visit Reasons: 1 yr f/up Allergies ofloxacin (From Floxin) Allergy (Unknown, Verified 12/24/24 04:35) Anaphylaxis prednisone (Prednisone) Adverse Reaction (Unknown, Verified 12/24/24 04:35) CONFUSION Medication List - Last Reconciled 01/23/25 by German Marinelli MD aspirin (Adult Aspirin Regimen) 81 mg PO DAILY atorvastatin 80 mg PO BEDTIME cyclobenzaprine 5 mg PO TID PRN 2 days hydromorphone 2 mg PO Q6H PRN ibuprofen 800 mg PO Q8H PRN lidocaine 4% (Aspercreme (lidocaine)) 1 patch topical DAILY PRN 7 days metoprolol tartrate 50 mg PO BID naproxen 500 mg PO BID 5 days oxycodone 5 mg PO Q6H PRN spironolactone 50 mg PO DAILY HPI Comments Details: Jaya returns for follow-up regarding coronary artery disease. He had a non ST elevation myocardial infarction in 2014. Then received drug-eluting stent to circumflex. He also had indeterminate lesions in other vessels but not intervened upon. Overall, he has got no cardiac symptoms. He is doing fine in that regard. [facility] Medical History Other and unspecified hyperlipidemia Essential hypertension Atherosclerotic cardiovascular disease Surgical History History of heart artery stent Family History Father Lung cancer Mother Alzheimer disease CVD (cardiovascular disease) Diabetes Social History Household Members: None Household Members Other:: with dog and cat Alcohol intake: current Alcohol intake frequency: 0-2 drinks per day Alcohol type: beer Patient Tobacco Use Status: Former Tobacco user Tobacco use type: Cigarette Years Smoked: 15 +/- e-Cigarette/Vaping Use: Never Used Second Hand Smoke Exposure: No Current occupational status: employed 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 Review of Systems Const Denies weakness ENT Denies dizziness Card Denies chest pain, Denies chest pain with activity, Denies syncope, Denies rapid heart rate, Denies pedal edema, Denies edema, Denies leg edema, Denies lightheadedness, Denies palpitations, Denies dyspnea, Denies dyspnea on exertion and Denies orthopnea Resp Denies cough, Denies dyspnea and Denies dyspnea on exertion GI Denies hematochezia and Denies change in stool character Musc Denies abnormal gait, Denies muscle cramps, Denies muscle weakness, Denies numbness, Denies radiating pain into limb and Denies tingling Neuro Denies abnormal gait, Denies dizziness, Denies syncope, Denies numbness, Denies tingling and Denies weakness Endo Denies palpitations Physical Exam Vital Signs: Last Vital Signs Pulse 68 01/23/25 12:32 BP 128/68 01/23/25 12:32 BMI result Body Mass Index 30.2 Const General: comfortable and no acute distress Orientation/consciousness: patient oriented x3 HEENT Other: Unremarkable Head: Yes normal to inspection Neck Neck: Yes normal visual inspection Chest Chest palpation & inspection: normal inspection of the chest Resp Auscultation: clear to auscultation bilaterally Cardio Palpation: normal PMI Heart sounds: S1 normal heart sound present, S2 normal heart sound present, no gallops, no murmurs and no rubs GI Palpation (GI): Soft to palpation Back/Spine/Pelvis Other: unremarkable Skin General skin exam: no rashes or lesions noted Neuro General: patient oriented x3 Extrem General: Yes normal to inspection Psych Mental Status: mental status grossly normal Assessment & Plan Assessment & Plan (1) Atherosclerotic cardiovascular disease: Code(s): I25.10 - Atherosclerotic heart disease of [place] coronary artery without angina pectoris Category: Medical (2) Essential hypertension: Code(s): I10 - Essential (primary) hypertension Category: Medical (3) Other and unspecified hyperlipidemia: Code(s): E78.5 - Hyperlipidemia, unspecified Category: Medical Plan Cardiac studies reviewed. Echocardiogram 2022 with LVEF of 55-60%; normal peak global longitudinal strain and otherwise unremarkable. Exercise stress myocardial perfusion imaging study 2022 was unremarkable at 7.3 Mets. He had 1/10 baseline chest pain that increased to 3/10 with exercise without EKG changes or perfusion abnormalities. Overall, remains stable. Continue aspirin. On Beta-blockers. Numerous times we have discussed the interaction between epinephrine/beta-blockers but he absolutely does not want any changes. He is well aware of the fact that epinephrine used for anaphylaxis may not work as well while taking beta-blockers. Otherwise, on statins. Previously, declined Zetia. Mildly abnormal LFTs that can be monitored. Coding Level of Care Code Est Pt Level 4 (47521) Complex EM visit Add On G2211 Diagnoses Atherosclerotic cardiovascular disease I25.10 Essential hypertension I10 Other and unspecified hyperlipidemia E78.5
== END 2025-01-23 12:45 | disposition home or self-care (01) ==
LOC: HO.HCS 10:59
PROVIDERS: PCP Internal Medicine; Visit Provider Internal Medicine
DX: I25.10 Atherosclerotic heart disease of native coronary artery without angina pectoris (principal); I10 Essential (primary) hypertension; E78.5 Hyperlipidemia, unspecified
CPT/HCPCS: 99214; G2211

== ENCOUNTER 2025-01-29 09:03 | Outpatient (AMB) | payer OTHER, SELFPAY ==
--- NOTE | 2025-01-29 09:11 | A.OFFVIS_ITS ---
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 He has a longstanding history of back pain with left-sided sciatica and sacroiliac joint pain, which has been managed at [facility] for many years. Recently, he experienced an acute flare-up of left-sided sciatica, leading to [facility] emergency room visits on December 22 and December 24, where he received prescriptions for oxycodone, cyclobenzaprine, naproxen, and lidocaine patches, providing partial relief. He was also seen at [facility] ER on 12/24/24 and was provided short script for hydromorphine. The patient reports that his pain worsens in the morning and with activity, particularly walking, and radiates down his left leg laterally and posteriorly with associated numbness and tingling in his ankle and toes. He denies any changes in bowel or bladder control, or saddle anesthesia. He has received multiple steroidal spine injections in the past, which have provided relief, but he was barred from [facility] due to inappropriate comments towards female staff. The patient has a history of spinal stenosis and a work-related injury to L3, L4 many years ago. He has not had back surgery and expresses reluctance towards surgical interventions, including implants, preferring injections and physical therapy. He has not engaged in physical therapy for about a year but expresses interest in resuming it as it was beneficial in the past. The patient also reports auditory hallucinations, describing hearing conversations and sermons, which he attributes to a possible cochlear implant, although imaging has shown no such implant. Patient was seen last hospitalized inpatient psychiatric stay 10/2023 but denies outpatient psychiatric visits since then. - Onset: Chronic, with recent acute flare-up - Quality: Radiating pain down the left leg, currently 4/10; aching, burning, numbness, tingling - Location: Low back, left leg, and sacroiliac joint - Exacerbating factors: Morning time, walking, lifting and activity - Relieving factors: Steroidal injections, medications, rest, heat/ice therapy - Affect: Pain impacts daily activities and mood, with reports of worsening in the morning and with activity - Analgesia: Currently using cyclobenzaprine, naproxen, and lidocaine patches with partial relief; oxycodone and hydromorphine short scripts from ER visits were effective - Adverse Effects: None reported - Activities of Daily Living: Pain interferes with walking and daily activities, mobility - Aberrant Drug Related Behaviors: Barred from previous [facility] clinic due to inappropriate behavior, but no specific medication misuse reported [facility] Medical History Hyperlipidemia Left shoulder tendinitis Subacromial bursitis of right shoulder joint SVT (supraventricular tachycardia) Bipolar disorder, unspecified Paranoid behavior Delusional ideas Other and unspecified hyperlipidemia Essential hypertension Atherosclerotic cardiovascular disease Surgical History History of heart artery stent Family History Father Lung cancer Mother Alzheimer disease CVD (cardiovascular disease) Diabetes Social History Household Members: None Household Members Other:: with dog and cat Alcohol intake: current Alcohol intake frequency: 0-2 drinks per day Alcohol type: beer Patient Tobacco Use Status: Former Tobacco user Tobacco use type: Cigarette Years Smoked: 15 +/- e-Cigarette/Vaping Use: Never Used Second Hand Smoke Exposure: No Current occupational status: employed 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 Review of Systems Const Details: - Musculoskeletal: Reports chronic low back pain, left-sided sciatica, and sacroiliac joint pain - Neurological: Reports numbness and tingling in the left leg; denies changes in bowel or bladder control - Psychiatric: Reports auditory hallucinations, bipolar disorder, paranoid behavior All systems reviewed & are unremarkable except as noted in HPI and below Physical Exam Vital Signs: Last Vital Signs Pulse 69 01/29/25 09:20 BP 128/84 01/29/25 09:20 Pulse Ox 100 01/29/25 09:20 Oxygen Delivery Method Room Air 01/29/25 09:20 BMI result Body Mass Index 30.5 General: Appears afebrile. Alert and oriented. Mood and affect appropriate. Follows and participates in conversation appropriately. Respiratory effort is unlabored. No cough. Able to transition from sit to stand unassisted. Ambulates with bilaterally normal heel strike and toe off, mildly antalgic gait. General: Yes no CVA tenderness Back/Spine/Pelvis Other: Limited lumbar ROM due to pain. Lumbar extension and axial rotations reproduce moderate pain, lumbar flexion is intact and partially relieves low back pain. Demonstrates 5/5 strength of quadriceps bilaterally as well as flexion/dorsiflexion of bilateral feet against resistance. 2+ pedal pulses bilaterally. Straight leg rise with dorsiflexion positive on the left. +1 patellar and diminished achilles reflexes bilaterally. Facet loading test posi tive bilaterally. Karlos?s, [place], Pelvic compression and Stinchfield tests are positive bilaterally, left>right. No groin pain with I/E hip rotations. Valsalva maneuver negative. Back: no CVA tenderness Cervical Spine: cervical ROM normal, cervical muscular tenderness, pain with cervical ROM, No Cervical spine scars present and No Cervical spine tenderness Thoracic/Lumbar Spine: thoracic and lumbar spine normal to inspection, No Thoracic/lumbar spine scar(s), Lasegue's sign positive on the left and locali zed, pain with thoraco-lumbar ROM, thoraco-lumbar ROM limited, No thoracic spinal tenderness and lumbar spinal tenderness at L4 and at L5 Pelvis: buttock tenderness on the left Sacroiliac joints: bilaterally tender to palpation Extrem General: Yes capillary refill normal, Yes no clubbing, cyanosis or edema and Yes no calf tenderness Psych Appearance: grossly normal and disheveled (mildly) Mental Status: mental status grossly normal Speech and movement: Normal speech and movement present Affect: Animated affect present Attitude: cooperative Thought process: Normal thought process present and Flight of ideas present Thought content: suicidality (none), Hallucination(s) present auditory (hearing voices through left ear) and No Depressive thoughts present Insight: Fair insight present (Psych) Judgement: Fair judgement present (Psych) Results Reviewed Results Reviewed: XR lumbar spine 2-3V 12/22/24 Reason for Exam: acute left sided back pain Comparison: CR/SR - XR LUMBAR SPINE 2-3 VIEWS - 07/06/22 07:34 EDT Findings: Normal vertebral body alignment. No acute fractures or dislocation. Multilevel disc space narrowing and endplate osteophyte formation, as well as facet hypertrophy. Arterial vascular calcifications are present. IMPRESSION: No acute findings. XR THORACIC SPINE 05/11/24 CLINICAL INFORMATION: PAIN THORACIC SPINE COMPARISON: None available. TECHNIQUE: 3 views of the thoracic spine were obtained. FINDINGS: Multilevel marginal osteophyte formation and endplate sclerosis decreased intervertebral disc height involving the mid to lower spine. No acute cortical disruption or gross malalignment. No lytic or blastic lesions. IMPRESSION: Multilevel lower thoracic spine spondylosis. MR LUMBAR SPINE WITHOUT CONTRAST 07/30/22 CLINICAL INFORMATION: Radiculopathy COMPARISON: Lumbar spine MRI 01/20/2006 TECHNIQUE: MRI of the lumbar spine was obtained using routine sequences without contrast. FINDINGS: Normal lumbar lordosis is preserved. No significant spondylolisthesis. Vertebral body heights are maintained. There is no suspicious osseous lesion. Multilevel disc desiccation with increased mild T12-L1 disc height loss. Progressive multilevel type II Modic endplate change and new prominent type I Modic endplate change along the T12 anterior inferior endplate on a background of type II Modic endplate change. Redemonstrated multilevel small endplate Schmorl's nodes. Multilevel anterior osteophytic spurring is seen.There are multilevel degenerative changes with level by level detail as follows: L1-L2: Trace annular disc bulge and mild bilateral facet arthrosis. Prominence of the dorsal epidural fat. Stable to slightly increased mild spinal canal narrowing without neural foraminal stenosis. L2-L3: Annular disc bulge with new left greater than right far lateral disc protrusions and associated annular fissure on the left with adjacent paraspinal edema suggestive of acute inflammation (image 1, series 5). Mild bilateral facet arthrosis and ligamentum flavum thickening. Prominence of the dorsal epidural fat. Stable mild spinal canal narrowing. Increased mild bilateral neural foraminal stenosis with new mass effect along the extraforaminal left and to a lesser extent right L2 nerve roots. L3-L4: Annular disc bulge with new superiorly migrated left foraminal disc extrusion and moderate facet arthrosis with ligamentum flavum thickening. Stable mild spinal canal narrowing and subarticular zone stenosis with abutment along the traversing bilateral L4 nerve roots. Increased moderate to severe left neural foraminal stenosis with new mass effect along the exiting left L3 nerve root and similar mild right neural foraminal stenosis. L4-L5: Annular disc bulge with bilateral moderate facet arthrosis and ligamentum flavum thickening. Degenerative marrow and periarticular edema associated with the right facet joint with small extracanalicular cysts associated with the left facet joint projecting into the paraspinal soft tissues. Stable mild spinal canal stenosis and subarticular zone narrowing with encroachment upon/abutment of the traversing L5 nerve roots. Increased severe right neural foraminal stenosis with compression of the exiting right L4 nerve root and increased moderate left neural foraminal stenosis with lesser mass effect along the exiting left L4 nerve root. L5-S1: Annular disc bulge with moderate bilateral facet arthrosis. No spinal canal stenosis. Unchanged mild to moderate bilateral neural foraminal stenosis with impingement upon the exiting left L5 nerve root. The conus medullaris terminates at the level of T12. The distal spinal cord is normal in appearance. No epidural fluid collection, hematoma, or mass. Increased mild fatty atrophy of the paraspinal musculature. Markedly distended bladder. The abdominal aorta is of normal contour and caliber. Degenerative osteophytic spurring along the right greater than left sacroiliac joints. IMPRESSION: 1. At L2-L3, new left greater than right far lateral disc protrusions and associated annular fissure and paraspinal edema/inflammatory change on the left. Increased mild bilateral neural foraminal stenosis with new mass effect along the extraforaminal left and to a lesser extent right L2 nerve roots. 2. At L3-L4, new superiorly migrated left foraminal disc extrusion results in increased severe left neural foraminal stenosis with new mass effect along the exiting left L3 nerve root. 3. At L4-L5, worsening severe right and moderate left neural foraminal stenosis with compression of the exiting right greater than left L4 nerve roots. 4. At L5-S1, stable mild to moderate bilateral neural foraminal stenosis with impingement upon the exiting left L5 nerve root. 5. Progressive mild T12-L1 disc height loss with increased type I Modic endplate change on a background of type II Modic endplate change at this level. Progressive multilevel type II Modic endplate change. 6. Markedly distended bladder. Assessment & Plan Assessment & Plan (1) Chronic low back pain with left-sided sciatica: Code(s): M54.42 - Lumbago with sciatica, left side; G89.29 - Other chronic pain Category: Medical (2) Lumbar degenerative disc disease: Code(s): M51.369 - Other intervertebral disc degeneration, lumbar region without mention of lumbar back pain or lower extremity pain Category: Medical (3) Lumbosacral spondylosis: Code(s): M47.817 - Spondylosis without myelopathy or radiculopathy, lumbosacral region Category: Medical (4) Lumbar spinal stenosis: Code(s): M48.061 - Spinal stenosis, lumbar region without neurogenic claudication Category: Medical Plan The plan includes resuming physical therapy to address the chronic low back pain and left sided sciatica, with a focus on improving mobility and reducing pain. Plan to update lumbar MRI after PT if symptoms are persistent to assess the current status of the spinal condition and follow up on previous MRI findings, with consideration for an open MRI due to the patient's claustrophobia. The patient is against surgical and procedural interventions at this time, with a preference for non-invasive treatments such as injections and physical therapy. Briefly discussed diagnostic lumbar medial branch blocks for potential lumbar RFA for axial low back pain. Medical release request sent to [facility] to review history of previous injections. For the auditory hallucinations, further psychiatric evaluation may be considered to explore underlying causes and appropriate management strategies. All questions and concerns have been answered and patient agreed with the treatment plan. Follow up after PT and sooner as needed. Patient was informed and verbally consented to the use of an ambient scribe for clinic note documentation during this visit. Orders: Orders PT Evaluation and Treatment Today G89.29 - Other chronic pain, M47.817 - Spondylosis without myelopathy or radiculopathy, lumbosacral region, M48.061 - Spinal stenosis, lumbar region without neurogenic claudication, M51.369 - Other intervertebral disc degeneration, lumbar region without mention of lumbar back pain or lower extremity pain, M54.42 - Lumbago with sciatica, left side Coding Level of Care Code New Pt Level 4 (40019) Diagnoses Chronic low back pain with left-sided sciatica M54.42; G89.29 Lumbar degenerative disc disease M51.369 Lumbosacral spondylosis M47.817 Lumbar spinal stenosis M48.061
[2025-01-29 09:20] VITALS: BP 128/84; PULSE 69; O2SAT 100; BMI 30.5
== END 2025-01-29 09:37 | disposition home or self-care (01) ==
LOC: HO.PMC 09:04
PROVIDERS: PCP Internal Medicine; Visit Provider Nurse Practitioner Family
DX: M54.42 Lumbago with sciatica, left side (principal); G89.29 Other chronic pain; M51.369 Other intervertebral disc degeneration, lumbar region without mention of lumbar back pain or lower extremity pain; M47.817 Spondylosis without myelopathy or radiculopathy, lumbosacral region; M48.061 Spinal stenosis, lumbar region without neurogenic claudication
CPT/HCPCS: 99204

== ENCOUNTER 2025-02-15 10:40 | Outpatient (REF) | payer OTHER, SELFPAY ==
--- OUTSIDE RECORDS SUMMARY | 2023-12-22 04:00 | XMS_ITS ---
Author Organization Azael Silvestre MD Address [address] [place] [phone] Care Team Providers Care Ambulance Attendant Name Role Phone Azael Silvestre Primary Care Provider Allergies Allergen (clinical drug ingredient) Drug/Non Drug Allergy documented on EMR Reaction Allergy Type Onset Date Status simvastatin Simvastatin myalgia Drug Allergy Act dontae pravastatin Pravastatin Sodium reflux Drug Allergy Active ofloxacin floxin (uncoded) swelling Allergy Act dontae REASON FOR VISIT wants to go over his chest x-ray from [facility] done on 11-19-23/ report scanned in chart Medications Medication SIG (Take, Route, Frequency, Duration) Notes Start Date End Date Status Cyclobenzaprine HCl 5 MG 1 tablet at bed time as needed Orally twice a day for 14 days 09/17/2022 Unknown Spironolactone 50 MG 1 tablet Orally bid Active Cyclobenzaprine HCl 5 MG 1 tablet at bed time as needed Orally once a day for 30 day(s) 02/22/2023 Not-Taking LORazepam 1 MG 1 tablet as needed Orally Twice a day as needed for 30 days 12/01/2023 Not-Taking Pepcid 20 MG 1 tablet at bedtime as needed Orally Once a day for 30 day(s) Not-Taking Divigel 0.25 MG/0.25GM 1 packet to skin Transdermal Once a day for 30 day(s) Active Aspirin 81 MG 1 tablet Orally Once a day Active Atorvastatin Calcium 80 MG 1 tablet Oral ly Once a day Active Ibuprofen 800 MG 1 tablet with food o r milk as needed Orally every 8 hrs as needed for 30 days 10/04/2023 Active Metoprolol Tartrate 50 MG 1 tablet Orall y Twice a day Active Immunizations Vaccine Route Administration Date Status Comme nts Fluarix Quadrivalent - 150 Unknown 12/22/2023 Refused Vital Signs Blood pressure systolic 122 mm Hg 12/22/19 24 Blood pressure diastolic 80 mm Hg 024 Height 67 in 12/22/2023 Weight 194 lbs 12/22/2023 BMI 30.38 kg/m2 12/22/2023 weight is down 3 pounds sin oscar 12-01-23 Encounters Encounter Location Date Provider Diagnosis Azael Silvestre MD [address] [place] [address] [place] [phone] 12/22/2023 Azael Silvestre Discomfort of chest wall R07.89 Assessments Encounter Date Diagnosis (ICD Code) Assessment Notes Treatment Notes Treatment Clinical Notes Section Notes 12/22/2023 Discomfort of chest wall (ICD-10 - R07.89) reviewed CXR from [facility] and discussed with patient there is no treatment needed at this time. the rest of his complaints are so disjointed that is impossible to tell about what he is talking but does not appear to be of any immediate concern Plan Of Treatment Treatment Notes Assessment Notes Discomfort of chest wall reviewed CXR fr [facility] and discussed with patient there is no treatment needed at this time. the rest of his complaints are so disjointed that is impossible to tell about what he is talking but does not appear to be of any immediate concern Next Appt Details Follow Up: 6 Months cancel n ov appt, Reason: Provider Name:Azael foley, 05/13/2025 07:45:00 AM, [address] [place] [address], [address] [place] [address], [phone], Provider Name:Azael foley, 05/20/2025 03:00:00 PM, [address] [place] [address], [address], [phone], Provider Name:Azael Caceres ier, 11/12/2025 07:30:00 AM, [address], [address], [place], [phone], Provider Name:Azael Caceres ier, 11/19/2025 02:30:00 PM, [address], [address], [place], [place], [phone], Progress Notes * Jaya BENITEZ MDOB:[birth year] (58 yo M)Acc No.[id number]:12/22/2023 Progress Notes Patient: Ritchie Jaya marsh Provider: Ritchie Silvestre MD :1965 A ge:58 Y S ex:Male Date:12/22/2023 Address:[address] [place], [place] [id number] Subjective: * Chief Complaints: * w ants to go over his chest x-ray from [facility] done on 11-19-23/ report scanned in chart * HPI: S ymptom(s): patient is a 58 yo male here for follow up recent ER visit, wants to discus CXR done at [facility] 11/19/23. * ROS: G eneral/Constitutional: Patient complaining of s till having some swelling in the left chest and some pain that is getting better.. D enies C hills. D enies F atigue. D enies F ever. D enies H eadache. E NT: Patient denies d ecreased sense of smell , any loss of taste , sore throat. D enies S ore throat. G astrointestinal: Denies D iarrhea. D enies N ausea. M usculoskeletal: Patient denies m uscle aches. P eripheral Vascular: Patient denies r ed and blue toes. * Medical History: * Surgical History: * Hospitalization/Major Diagno stic Procedure: * Medications: T akingAspirin 81 MG Tablet 1 tablet Orally Once a dayDivigel 0.25 MG/0.25GM Gel 1 packet to skin Transdermal Once a dayIbuprofen 800 MG Tablet 1 tablet with food or milk as needed Orally every 8 hrs as neededAtorvastatin Calcium 80 MG Tablet 1 tablet Orally Once a dayMetoprolol Tartrate 50 MG Tablet 1 tablet Orally Twice a daySpironolactone 50 MG Tablet 1 tablet Orally bidTaking Aspirin 81 MG Tablet 1 tablet Orally Once a dayTaking Divigel 0.25 MG/0.25GM Gel 1 packet to skin Transdermal Once a dayTaking Ibuprofen 800 MG Tablet 1 tablet with food or milk as needed Orally every 8 hrs as neededTaking Atorvastatin Calcium 80 MG Tablet 1 tablet Orally Once a dayTaking Metoprolol Tartrate 50 MG Tablet 1 tablet Orally Twice a dayTaking Spironolactone 50 MG Tablet 1 tablet Orally bidNot-Taking/PRNLORazepam 1 MG Tablet 1 tablet as needed Orally Twice a day as neededCyclobenzaprine HCl 5 MG Tablet 1 tablet at bedtime as needed Orally once a dayPepcid 20 MG Tablet 1 tablet at bedtime as needed Orally Once a dayNot-Taking/PRN LORazepam 1 MG Tablet 1 tablet as needed Orally Twice a day as neededNot-Taking/PRN Cyclobenzaprine HCl 5 MG Tablet 1 tablet at bedtime as needed Orally once a dayNot-Taking/PRN Pepcid 20 MG Tablet 1 tablet at bedtime as needed Orally Once a dayUnknownCyclobenzaprine HCl 5 MG Tablet 1 tablet at bedtime as needed Orally twice a dayMedication List reviewed and reconciled with the patientUnknown Cyclobenzaprine HCl 5 MG Tablet 1 tablet at bedtime as needed Orally twice a dayMedication List reviewed and reconciled with the patient * Allergies: f loxin: swellingPravastatin Sodium: refluxSimvastatin: myalgiayes[Allergies Verified] Objective: * Vitals: H t: 67, Wt:194, BMI:30.38, BP:122/80 weight is down 3 pounds since 12-01-23. * Examination: G eneral Examination: GENERAL APPEARANCE: agitated and speaking rapidly. hard to keep him focused. HEART: no murmurs, rubs, gallops, regular rate and rhythm. LUNGS: no wheezes, rales, rhonchi, good air movement, clear to auscultation bilaterally. CHEST: abnormal chset wall with mild tenderness. ? Assessment: * Assessment: 1. D iscomfort of chest wall - R07.89 (Primary) Plan: * Treatment: * Immunizations: Fluarix Quadrivalent - 150 (Not administered - Refused: Patient decision) * Procedure Codes: * Preventive Medicine: Immunizations: I leandro fenton you had a flu shot since the most recent November 12? N o patient refused at visit today. * Follow Up: 6 Months cancel nov appt * * Sign off status: Completed true * Provider: Ritchie Silvestre MD Date: 1 Generated for Roger rosen/Alfonso/Janinaransmitting on: 04/18/2024 12:44 PM EST History and Physical Notes * HPI (History of Present Illness) Category Sub-Category Detail Notes Category Not es Symptom(s) patient is a 58 yo male here for follow up recent ER visit, wants to discus CXR done at [facility] 11/19/23 Examination Category Sub-Category Detail Notes Category Not es General Examination GENERAL APPEARANCE: agitated and speaking rapidly. hard to keep him focused HEART: no murmurs, rubs, ga llops, regular rate and rhythm CHEST: abnormal chset wall with mild tenderness LUNGS: no wheezes, rales, r honchi, good air movement, clear to auscultation bilaterally
--- OUTSIDE RECORDS SUMMARY | 2024-01-12 03:45 | XMS_ITS ---
Author Organization Azael Silvestre MD Address [address] [place] [address] [address] [place] [phone] Care Team Providers Care Steel Fitter Name Role Phone Azael Silvestre Primary Care Provider [phone] Results Component Value Reference Range Notes Potassium Reviewed date:01/12/2024 12:29:10 PM Interpretation: Performing Lab:[facility], [address] [place] [phone] Notes/Report: Potassium 4.7 3.3-5.1 mmol/L REASON FOR VISIT hyperkalemia Encounters Encounter Location Date Provider Diagnosis Azael Silvestre MD [address] [place] [address] [place] [phone] 01/12/2024 Azael Silvestre Hyperkalemia E87.5 Assessments Encounter Date Diagnosis (ICD Code) Assessment Notes Treatment Notes Treatment Clinical Notes Section Notes 01/12/2024 Hyperkalemia (ICD-10 - E87.5) Plan Of Treatment Next Appt Details Provider Name:Azael foley, 05/13/2025 07:45:00 AM, [address] [place] [address], Suite [facility], [place], [place], [phone], Provider Name:Azael Caceres ier, 05/20/2025 03:00:00 PM, [address], [address], [place], [place], [phone], Provider Name:Azael Caceres ier, 11/12/2025 07:30:00 AM, [address], [address], [place], [place], [phone], Provider Name:Azael Caceres ier, 11/19/2025 02:30:00 PM, [address], [address], [place], [phone], Progress Notes * Jaya BENITEZ MDOB:[birth year] (59 yo M)Acc No.[id number]:01/12/2024 Progress Note Patient: Ritchie ROMEROZAHEER Jaya Ila Provider: Ritchie Silvestre MD :1965 A ge:58 Y S ex:Male Date:01/12/2024 Address:[address] [place] [address] [address], [facility] Subjective: * Chief Complaints: * 1 . Hyperkalemia. * Medical History: Objective: * Vitals: Assessment: * Assessment: 1. H yperkalemia - E87.5 (Primary) Plan: * Treatment: * Procedure Codes: 3 6415 VENIPUNCT, ROUTINE* * * The named appointment provid er may or may not be the originator of this progress note, and it is not deemed complete until electronically signed by the appointment provider. Sign off status: Pending * Provider: Ritchie Silvestre MD Date: Generated for Roger rosen/Alfonso/Giaitting on: 04/18/2024 12:44 PM EST
--- OUTSIDE RECORDS SUMMARY | 2024-01-31 11:30 | XMS_ITS ---
Author Organization Azael Silvestre MD Address [address] [place] [address] [place] [phone] Care Team Providers Care Wood Milling Machine Hand Name Role Phone Azael Silvestre Primary Care Provider [phone] REASON FOR VISIT 2 month Encounters Encounter Location Date Provider Diagnosis Azael Silvestre MD [address] [place] [address] [place] [phone] 01/31/2024 Azael Silvestre Plan Of Treatment Next Appt Details Provider Name:Azael foley, 05/13/2025 07:45:00 AM, [address] [place] [address], [address], [phone], Provider Name:Azael foley, 05/20/2025 03:00:00 PM, [address] [place] [address], [address], [phone], Provider Name:Azael foley, 11/12/2025 07:30:00 AM, [address] [place] [address], [address], [phone], Provider Name:Azael foley, 11/19/2025 02:30:00 PM, [address] [facility], [address], [place], [place], [phone], Progress Notes * Jaya BENITEZ MDOB:[birth year] (59 yo M)Acc No.[id number]:01/31/2024 Progress Notes Patient: Jaya MCCRAY Provider: Ritchie Silvestre MD :1965 A ge:58 Y S ex:Male Date:01/31/2024 Address:[address] [place] [address] [address], [facility] Subjective: * Chief Complaints: * 1 . 2 month. * Medical History: Objective: * Vitals: Assessment: Plan: * Treatment: * * The named appointment provid er may or may not be the originator of this progress note, and it is not deemed complete until electronically signed by the appointment provider. Sign off status: Pending * Provider: Ritchie Silvestre MD Date: 04/01/2023 Generated for Roger rosen/Alfonso/Fabianasmitting on: 04/18/2024 12:43 PM EST
--- OUTSIDE RECORDS SUMMARY | 2024-04-20 02:00 | XMS_ITS ---
Author Organization Azael Silvestre MD Address [address] [place], [place] [phone] Care Team Providers Care Analog Circuit Designer Name Role Phone Azael Silvestre Primary Care Provider Results Component Value Reference Range Notes Liver Panel Reviewed date:04/20/2024 02:21:26 PM Interpretation: Performing Lab:[facility], [address] [place] [phone] Notes/Report: Bilirubin Total 1.3 0.0-1.0 mg/dL Bilirubin Direct 0.4 0.0-0.5 mg/dL Aspartate Amino Transferase 31 5-37 U/L Alanine Aminotransferase 45 0-40 U/L Total Protein 7.3 6.5-8.0 g/dL Albumin Level 4.5 3.5-5.0 g/dL Alkaline Phosphatase 83 39-117 U/L Lipid Panel with Reflex Reviewed date:04/20/2024 02:21:06 PM Interpretation: Performing Lab:[facility], [address] [place] [phone] Notes/Report: Triglycerides 130 <150 mg/dL Desirable Triglyceride: less than 150 mg/dL Borderline High Triglyceride 150-199 mg/dL High Triglyceride: 200-499 mg/dL Very High Triglyceride: greater than or equal to 5OO mg/dL Cholesterol 171 <200 mg/dL Desirable Cholesterol: less than 200 mg/dL Borderline High Cholesterol: 200-239 mg/dL High Cholesterol: greater than 239 mg/dL LDL Cholesterol Calculated 91 <100 mg/dL Desirable LDL: less than 100 mg/dL Near Optimal/Above Optimal LDL: 110-129 mg/dL Borderline High LDL: 130-159 mg/dL High LDL: 160-189 mg/dL Very High LDL: greater than or equal to 190 mg/dL HDL Cholesterol 54 >40 mg/dL Desirable HDL: greater than 40 mg/dL Note: This HDL assay may give artificially low results in patients with liver disease. REASON FOR VISIT FASTING LIPIDS Encounters Encounter Location Date Provider Diagnosis Azael Silvestre MD [address] [place] [phone] 04/20/2024 Azael Silvestre Pure hypercholestero lemia E78.00 Assessments Encounter Date Diagnosis (ICD Code) Assessment Notes Treatment Notes Treatment Clinical Notes Section Notes 04/20/2024 Pure hypercholesterolemia (ICD-10 - E78.00) Plan Of Treatment Next Appt Details Provider Name:Azael foley, 05/13/2025 07:45:00 AM, [address] [place] [address], [address], [phone], Provider Name:Azael foley, 05/20/2025 03:00:00 PM, [address] [place] [address], [address], [phone], Provider Name:Azael foley, 11/12/2025 07:30:00 AM, [address] [place] [address], [address], [phone], Provider Name:Azael foley, 11/19/2025 02:30:00 PM, [address] [place] [address], [address], [phone], Progress Notes * Jaya BENITEZ MDOB:[birth year] (59 yo M)Acc No.[id number]:04/20/2024 Progress Note Patient: Jaya MCCRAY Provider: Ritchie Silvestre MD :1965 A ge:58 Y S ex:Male Date:04/20/2024 Address:[address] [place] [address] [address] [facility] Subjective: * Chief Complaints: * 1 . FASTING LIPIDS. * Medical History: Objective: * Vitals: Assessment: * Assessment: 1. P ure hypercholesterolemia - E78.00 (Primary) Plan: * Treatment: * Procedure Codes: 3 6415 VENIPUNCT, ROUTINE* * * The named appointment provid er may or may not be the originator of this progress note, and it is not deemed complete until electronically signed by the appointment provider. Sign off status: Pending * Provider: Ritchie Silvestre MD Date: 0 04/20/2024 Generated for Roger rosen/Alfonso/Giaitting on: 1 04/18/2024 12:46 PM EST
--- OUTSIDE RECORDS SUMMARY | 2024-04-26 02:30 | XMS_ITS ---
Author Organization Azael Silvestre MD Address [address] [place] [address] [place] [phone] Care Team Providers Care Geomagnetist Name Role Phone Azael Silvestre Primary Care Provider Allergies Allergen (clinical drug ingredient) Drug/Non Drug Allergy documented on EMR Reaction Allergy Type Onset Date Status simvastatin Simvastatin myalgia Drug Allergy Act dontae pravastatin Pravastatin Sodium reflux Drug Allergy Active ofloxacin floxin (uncoded) swelling Allergy Act dontae REASON FOR VISIT 6 MO F/U Encounters Encounter Location Date Provider Diagnosis Azael Silvestre MD [address] [place] [address] [place] [phone] 04/26/2024 Azael Silvestre Plan Of Treatment Next Appt Details Provider Name:Azael foley, 05/13/2025 07:45:00 AM, [address] [place] [address], [place] [address], [place], [place], [phone], Provider Name:Azael foley, 05/20/2025 03:00:00 PM, [address] [place] [address], [phone], Provider Name:Azael Caceres ier, 11/12/2025 07:30:00 AM, [address], [address], [place], [place], [phone], Provider Name:Azael Caceres ier, 11/19/2025 02:30:00 PM, [address], [address], [place], [phone], Progress Notes * DAYANA Jaya BRITTOB:[birth year] (59 yo M)Acc No.[id number]:04/26/2024 Progress Notes Patient: Jaya MCCRAY Provider: Ritchie Silvestre MD :1965 A ge:58 Y S ex:Male Date:04/26/2024 Address:[address] [place] [address] [address], [facility] Subjective: * Chief Complaints: * 1 . 6 MO F/U. * ROS: G eneral/Constitutional: Denies C hills. D enies F atigue. D enies F ever. D enies H eadache. E NT: Denies S ore throat. R espiratory: Denies C ough. D enies S hortness of breath at rest. D enies S hortness of breath with exertion. G astrointestinal: Denies D iarrhea. D enies N ausea. * Medical History: 2 015 patient refuses colonoscopy, Refuses any cholesterol drug, Negative cysto and ct 2017, Negative cysto and cat scan, Refuses mammo. * Allergies: f loxin: swelling, Pravastatin Sodium: reflux, Simvastatin: myalgia. Objective: * Vitals: Assessment: Plan: * Treatment: * * The named appointment provid er may or may not be the originator of this progress note, and it is not deemed complete until electronically signed by the appointment provider. Sign off status: Pending * Provider: Ritchie Silvestre MD Date: 0 04/26/2024 Generated for Roger rosen/Alfonso/Giaitting on: 1 04/18/2024 12:46 PM EST
--- OUTSIDE RECORDS SUMMARY | 2024-10-18 02:00 | XMS_ITS ---
Author Organization Azael Silvestre MD Address [address] [place], [place] [id number] Care Team Providers Care Automotive Parts Interpreter Name Role Phone Azael Silvestre Primary Care Provider [phone] Results Component Value Reference Range Notes Complete Blood Count Auto Di ff Reviewed date:10/18/2024 08:03:27 PM Interpretation: Performing Lab:[facility], [address] [place] [phone] Notes/Report: White Blood Count 5.5 4.8-10.8 X10*3/uL Red Blood Count 4.42 4.60-5.80 X10*6/uL Hemoglobin 14.7 14.0-18.0 g/dl Hematocrit 41.5 42.0-52.0 % Mean Corpuscular Volume 93.9 80.0-98.0 fL Mean Corpuscular Hemoglobin 33.3 27.0-33.0 pg Mean Corpuscular HGB Conc 35.4 31.0-36.0 g/dl Red Cell Distribution Width 12.3 11.0-16.0 % Platelet Count 198 160-400 X10*3/uL Mean Platelet Volume 10.7 9.4-12.4 fL Neutrophils Percent Auto 64.2 45-73 % Imm Gran Pct Auto 0.2 0.0-0.4 % Lymphocytes Percent Auto 22.2 20-40 % Monocytes Percent Auto 9.0 2-11 % Eosinophils Percent Auto 4.0 0-4 % Basophils Percent Auto 0.4 0-2 % NRBC Pct Auto 0.0 0.0-0.2 /100WBC Neutrophils Absolute Auto 3.5 2.0-8.3 x10*3/u L Imm Gran Abs Auto 0.01 0.00-0.03 X10*3/uL Lymphocytes Absolute Auto 1.2 1.2-4.9 X10*3/u L Monocytes Absolute Auto 0.5 0.1-1.2 X10*3/uL Eosinophils Absolute Auto 0.2 0.0-0.4 X10*3/u L Basophils Absolute Auto 0.0 0.0-0.2 X10*3/uL NRBC Abs Auto 0.000 0.0-0.012 X10*3/uL Lipid Panel Reviewed date:10/18/2024 08:02:24 PM Interpretation: Performing Lab:[address] [phone] Notes/Report: Triglycerides 170 <150 mg/dL Desirable Triglyceride: less than 150 mg/dL Borderline High Triglyceride 150-199 mg/dL High Triglyceride: 200-499 mg/dL Very High Triglyceride: greater than or equal to 5OO mg/dL Cholesterol 185 <200 mg/dL Desirable Cholesterol: less than 200 mg/dL Borderline High Cholesterol: 200-239 mg/dL High Cholesterol: greater than 239 mg/dL LDL Cholesterol Calculated 100 <100 mg/dL Desirable LDL: less than 100 mg/dL Near Optimal/Above Optimal LDL: 110-129 mg/dL Borderline High LDL: 130-159 mg/dL High LDL: 160-189 mg/dL Very High LDL: greater than or equal to 190 mg/dL HDL Cholesterol 51 >40 mg/dL Desirable HDL: greater than 40 mg/dL Note: This HDL assay may give artificially low results in patients with liver disease. PSA,Total (Free>4and<10) Reviewed date:11/15/2024 05:00:22 PM Interpretation:11-15-2024 Performing Lab:[address], [place] [address] Notes/Report: PSA,Total (Free>4and<10) 3.55 0.00-4.00 ng/mL A Free PSA was not performed: The percentage of Free PSA can be used to enhance the differentiation of prostate cancer from benign prostatic disease in subjects whose PSA levels are between 4.0 and 10.0 ng/mL. For subjects whose PSA levels are below 4.0 or above 10.0 ng/mL, the risk of prostate cancer is determined on the basis of the PSA alone. Therefore the % Free PSA is recommended only for those subjects whose PSA levels are between 4.0 and 10.0 ng/mL. PSA methodology: Lambert Alinity i Chemiluminescent Microparticle Immunoassay (CMIA) UA ClnCatch+Micro w/rflx Cul t Reviewed date:10/18/2024 08:02:44 PM Interpretation: Performing Lab:[facility], [address] [place] [phone] Notes/Report: Urine, Clean Catch Color Urine Yellow Appearance Urine Clear PH 7.5 5.0-9.0 Glucose Urine UA Negative Negative mg/dL Urine Blood Negative Negative Specific [place] - Urine 1.010 1.005-1.025 Urine Protein Negative Neg-Trace mg/dL Urine Ketones Negative Negative mg/dL Nitrite Urine Negative Negative Leukocyte Esterase Urine Small (1+) Negative RBC Urine 0-2 0-2 /HPF WBC Urine 0-5 0-5 /HPF Squamous Epithelial Cell Urine 0-2 0-2 /HPF Bacteria Urine 4+ None Seen Hyaline Casts Urine 0-2 0-2 /LPF REASON FOR VISIT FASTING LABS Encounters Encounter Location Date Provider Diagnosis Azael Silvestre MD [address] [place] [address] [address] [place], [place] [phone] 10/18/2024 Azael Silvestre Blood tests for rout ine general physical examination Z00.00 ; Essential (primary) hypertension I10 and Pure hypercholesterolemia E78.00 Assessments Encounter Date Diagnosis (ICD Code) Assessment Notes Treatment Notes Treatment Clinical Notes Section Notes 10/18/2024 Blood tests for rout ine general physical examination (ICD-10 - Z00.00) 10/18/2024 Essential (primary) hypertension (ICD-10 - I10) 10/18/2024 Pure hypercholesterolemia (ICD-10 - E78.00) Plan Of Treatment Pending Test Test Name Order Date Comprehensive [place]. Panel Fast Next Appt Details Provider Name:Azael Caceres ier, 05/13/2025 07:45:00 AM, [address], [address], [place], [phone], Provider Name:Azael Caceres ier, 05/20/2025 03:00:00 PM, [address], [address], [place], [phone], Provider Name:Azael Caceres ier, 11/12/2025 07:30:00 AM, [address], [address], [place], [phone], Provider Name:Azael Caceres ier, 11/19/2025 02:30:00 PM, [address] [place] [address] Drive, Suite [facility], [place], [place], [phone], Progress Notes * Jaya BENITEZ MDOB:[birth year] (59 yo M)Acc No.[id number]:10/18/2024 Progress Note Patient: Jaya MCCRAY Provider: Ritchie Silvestre MD :1965 A ge:58 Y S ex:Male Date:10/18/2024 Address:[address] [place] [address] [place], [place] [phone] Subjective: * Chief Complaints: * 1 . FASTING LABS. * Medical History: Objective: * Vitals: Assessment: * Assessment: 1. B lood tests for routine general physical examination - Z00.00 (Primary) 2 .?Essential (primary) hypertension - I10 3 . P ure hypercholesterolemia - E78.00 Plan: * Treatment: 2. E ssential (primary) hypertension L AB: Comprehensive [place]. Panel Fast L AB: Complete Blood Count Auto Diff (Collection Date & Time - 10/18/2024 07:00 AM) L AB: Lipid Panel (Collection Date & Time - 10/18/2024 07:00 AM) L AB: PSA,Total (Free>4and<10) (Collection Date & Time - 10/18/2024 07:00 AM) L AB: UA ClnCatch+Micro w/rflx Cult (Collection Date & Time - 10/18/2024 07:00 AM) 3. P ure hypercholesterolemia L AB: Comprehensive [place]. Panel Fast L AB: Complete Blood Count Auto Diff (Collection Date & Time - 10/18/2024 07:00 AM) L AB: Lipid Panel (Collection Date & Time - 10/18/2024 07:00 AM) L AB: PSA,Total (Free>4and<10) (Collection Date & Time - 10/18/2024 07:00 AM) L AB: UA ClnCatch+Micro w/rflx Cult (Collection Date & Time - 10/18/2024 07:00 AM) * Procedure Codes: 3 6415 VENIPUNCT, ROUTINE* * * The named appointment provid er may or may not be the originator of this progress note, and it is not deemed complete until electronically signed by the appointment provider. Sign off status: Pending * Provider: Ritchie Silvestre MD Date: 0 10/18/2024 Generated for Roger rosen/Alfonso/Giaitting on: 1 04/18/2024 12:43 PM EST
--- OUTSIDE RECORDS SUMMARY | 2024-11-15 08:00 | XMS_ITS ---
Author Organization Azael Silvestre MD Address [address] [place] [phone] Care Team Providers Care Block Saw Operator Name Role Phone Azael Silvestre Primary Care Provider Allergies Allergen (clinical drug ingredient) Drug/Non Drug Allergy documented on EMR Reaction Allergy Type Onset Date Status simvastatin Simvastatin myalgia Drug Allergy Act dontae pravastatin Pravastatin Sodium reflux Drug Allergy Active ofloxacin floxin (uncoded) swelling Allergy Act dontae Results Component Value Reference Range Notes Occult Blood, Stool, Guaiac Reviewed date:11/15/2024 01:46:45 PM Interpretation:Negative Performing Lab: Notes/Report: Negative Occult Blood, Stool, Guaiac Neg REASON FOR VISIT ANNUAL EXAM/ must see PSA Medications Medication SIG (Take, Route, Frequency, Duration) Notes Start Date End Date Status Spironolactone 50 MG 1 tablet Orally bid Active LORazepam 1 MG 1 tablet as needed Orally Twice a day as needed for 30 days 12/01/2023 Not-Taking Cyclobenzaprine HCl 5 MG 1 tablet at bed time as needed Orally once a day for 30 day(s) 02/22/2023 Not-Taking Pepcid 20 MG 1 tablet at bedtime as needed Orally Once a day for 30 day(s) Not-Taking Cyclobenzaprine HCl 5 MG 1 tablet at bed time as needed Orally twice a day for 14 days 09/17/2022 Unknown Aspirin 81 MG 1 tablet Orally Once a day Active Divigel 0.25 MG/0.25GM 1 packet to skin Transdermal Once a day for 30 day(s) Active Ibuprofen 800 MG 1 tablet with food o r milk as needed Orally every 8 hrs as needed for 30 days 10/04/2023 Not-Taking Atorvastatin Calcium 80 MG 1 tablet Oral ly Once a day Active Metoprolol Tartrate 50 MG 1 tablet Orall y Twice a day Active Immunizations Vaccine Route Administration Date Status Comme nts Influenza High Dose Unknown 11/15/2024 Refused Social History Tobacco Use: Social History Observation Description Date Details (start date - stop date) Former Smoker NA - NA Tobacco Use/Smoking Question Answer Notes Patient is a former smoker How long has it been since y ou last smoked? > 10 years Additional Findings: Tobacco Non-User Fo rmer smoker, currently using no form of tobacco Alcohol Screen Question Answer Notes Did you have a drink contain ing alcohol in the past year? Yes How often did you have a dri nk containing alcohol in the past year? 4 or more times a week (4 points) How many drinks did you have on a typical day when you were drinking in the past year? 1 or 2 drinks (0 point) How often did you have 6 or more drinks on one occasion in the past year? Never (0 point) Points 4 Interpretation Positive Problems Problem Type SNOMED Code ICD Code Onset Dates Problem Status W/U Status Risk Notes Problem Auditory hallucinations (85822633) Auditory hallucinations (R44.0) Active confirmed Vital Signs Blood pressure systolic 122 mm Hg 11/16/19 25 Blood pressure diastolic 80 mm Hg 025 Height 67 in 11/15/2024 Weight 198 lbs 11/15/2024 BMI 31.01 kg/m2 11/15/2024 weight is up 4 pounds since 12-22-23 Encounters Encounter Location Date Provider Diagnosis Azael Silvestre MD [address] [place] [address] [address] [place], [place] [phone] 11/15/2024 Azael Silvestre Annual physical exam Z00.00 ; Rising PSA level R97.20 ; Auditory hallucinations R44.0 ; Essential (primary) hypertension I10 ; Pure hypercholesterolemia E78.00 ; Colon cancer screening Z12.11 and Depression screening Z13.31 Assessments Encounter Date Diagnosis (ICD Code) Assessment Notes Treatment Notes Treatment Clinical Notes Section Notes 11/15/2024 Annual physical exam (ICD-10 - Z00.00) labs reviewed and discussed with patient 11/15/2024 Rising PSA level (IC D-10 - R97.20) had a decrease ijn his estrogen which may be related to his decrease in his estrogen. will recheck psa in 3 months 11/15/2024 Auditory hallucinati ons (ICD-10 - R44.0) has not agreed to any evaluation or treatment 11/15/2024 Essential (primary) hypertension (ICD-10 - I10) stable, will continue current regiment 11/15/2024 Pure hypercholesterolemia (ICD-10 - E78.00) stale, will continue current regiment 11/15/2024 Colon cancer screeni ng (ICD-10 - Z12.11) guaiac negative 11/15/2024 Depression screening (ICD-10 - Z13.31) negative screen Plan Of Treatment Treatment Notes Assessment Notes Annual physical exam labs reviewed and d iscussed with patient Rising PSA level had a decrease ijn h is estrogen which may be related to his decrease in his estrogen. will recheck psa in 3 months Auditory hallucinations has not agreed t o any evaluation or treatment Essential (primary) hypertension stable, will continue current regiment Pure hypercholesterolemia stale, will co ntinue current regiment Colon cancer screening guaiac negative Depression screening negative screen Pending Test Test Name Order Date PSA Free and Total 11/15/2024 Next Appt Details Provider Name:Azael foley, 05/13/2025 07:45:00 AM, [address] [place] [address], [address] [place] [address], [phone], Provider Name:Azael foley, 05/20/2025 03:00:00 PM, [address] [place] [address], Suite [facility], [place], [place], [phone], Provider Name:Azael foley, 11/12/2025 07:30:00 AM, [address] [place] [address], [place] [address], [place], [place], [phone], Provider Name:Azael Caceres ier, 11/19/2025 02:30:00 PM, [address], [address], [place], [place], [phone], Progress Notes * Jaya BENITEZ MDOB:[birth year] (58 yo M)Acc No.[id number]:11/15/2024 Progress Notes Patient: Jaya MCCRAY Provider: Ritchie Silvestre MD :1965 A ge:58 Y S ex:Male Date:11/15/2024 Address:[address] [place] [address] [address], [facility] Subjective: * Chief Complaints: * A NNUAL EXAM/ must see PSA * HPI: D epression Screening: PHQ-9 L ittle interest or pleasure in doing things N ot at all, F eeling down, depressed, or hopeless N ot at all, T rouble falling or staying asleep, or sleeping too much N ot at all, F eeling tired or having little energy N ot at all, P oor appetite or overeating N ot at all, F eeling bad about yourself or that you are a failure, or have let yourself or your family down N ot at all, T rouble concentrating on things, such as reading the newspaper or watching television N ot at all, M oving or speaking so slowly that other people could have noticed; or the opposite, being so fidgety or restless that you have been moving around a lot more than usual N ot at all, T houghts that you would be better off or of hurting yourself in some way N ot at all, T otal Score 0 . I nterpretation and Intervention D epression Screening Findings N egative, F ollow-Up for Depression : review of PHQ-9 found negative result, no follow-up needed. here for yearly evaluation. hearing voices that are threatening him. feels it is related to workman's comp/. C ommunication Needs: Communication Needs D oes the patient have a hearing impairment N o, D oes the patient have a vision impairment? Y es, I f yes, what is the vision impairment? G lasses, D oes the patient have a cognition impairment? N o. F all Risk: History H ave you had any falls with injury in the past year? N o, H ave you had two or more falls in the past year? N o. S ABHISHEK Questions: SDOH Questions I n the past year have you been worried about losing housing? N o, I n the past year have you or any family members you live with been unable to get any of the following when it was really needed? Check all that apply: N one. S ymptom(s): patient is a 58 yo male here for annual visit with review of recent labs and follow up of chronic issues. * ROS: G eneral/Constitutional: Change in appetite d enies. C hills d enies. F ever d enies. O phthalmologic: Blurred vision d enies. D ischarge d enies. P ain d enies. E NT: Decreased hearing d enies. S ore throat d enies.?Swollen glands d enies. E ndocrine: Cold intolerance d enies. E xcessive thirst d enies. H eat intolerance d enies. W eight loss d enies. R espiratory: Cough d enies. S hortness of breath at rest d enies. S hortness of breath with exertion d enies. W heezing d enies. C ardiovascular: Chest pain at rest d enies. C hest pain with exertion?denies. I rregular heartbeat d enies. S hortness of breath d enies. ? G astrointestinal: Abdominal pain d enies. C hange in bowel habits d enies. D iarrhea d enies. N ausea d enies. R ectal bleeding d enies. V omiting d enies . G enitourinary: Blood in urine d enies. D ifficulty urinating d enies. F requent urination d enies. M usculoskeletal: Painful joints d enies. W eakness d enies. ? S kin: Dry skin d enies. I tching d enies. D enies?Mole(s), changes in moles, new moles or any lesions of concern. D enies P hotosensitivity. R jono d enies. N eurologic: Dizziness d enies. F ainting d enies. H eadache?denies. * Medical History: * Surgical History: * Hospitalization/Major Diagno stic Procedure: * Family History: F ather: 42 yrs, lung cancer, diagnosed with Cancer. M other: 68 yrs, alzheimer, diagnosed with Alzheimer disease. 3 sister(s) . 2 daughter(s) . . Denies mental health/substance abuse family history, Denies mental health/substance abuse family history, Denies mental health/substance abuse family history, No pertinent family medical history, No pertinent family medical history Mother alcoholic. * Social History: T obacco Use: T obacco Use/Smoking P atient is a f ormer smoker, H ow long has it been since you last smoked? > 10 years, A dditional Findings: Tobacco Non-User F ormer smoker, currently using no form of tobacco. D rugs/Alcohol: A lcohol Screen D id you have a drink containing alcohol in the past year? Y es, H ow often did you have a drink containing alcohol in the past year? 4 or more times a week (4 points), H ow many drinks did you have on a typical day when you were drinking in the past year? 1 or 2 drinks (0 point), H ow often did you have 6 or more drinks on one occasion in the past year? N ever (0 point), P oints 4 , I nterpretation P ositive. M iscellaneous: C affeine: no. Children: yes. Exercise: no, PT. Home smoke detector use: yes. Living with: alone. Marital status: single. Pets: none, 1 cat. * Medications: T akingAspirin 81 MG Tablet 1 tablet Orally Once a day Divigel 0.25 MG/0.25GM Gel 1 packet to skin Transdermal Once a day Atorvastatin Calcium 80 MG Tablet 1 tablet Orally Once a day Metoprolol Tartrate 50 MG Tablet 1 tablet Orally Twice a day Spironolactone 50 MG Tablet 1 tablet Orally bid Taking Aspirin 81 MG Tablet 1 tablet Orally Once a day Taking Divigel 0.25 MG/0.25GM Gel 1 packet to skin Transdermal Once a day Taking Atorvastatin Calcium 80 MG Tablet 1 tablet Orally Once a day Taking Metoprolol Tartrate 50 MG Tablet 1 tablet Orally Twice a day Taking Spironolactone 50 MG Tablet 1 tablet Orally bid Not-Taking/PRNIbuprofen 800 MG Tablet 1 tablet with food or milk as needed Orally every 8 hrs as needed LORazepam 1 MG Tablet 1 tablet as needed Orally Twice a day as needed Cyclobenzaprine HCl 5 MG Tablet 1 tablet at bedtime as needed Orally once a day Pepcid 20 MG Tablet 1 tablet at bedtime as needed Orally Once a day Not-Taking/PRN Ibuprofen 800 MG Tablet 1 tablet with food or milk as needed Orally every 8 hrs as needed Not-Taking/PRN LORazepam 1 MG Tablet 1 tablet as needed Orally Twice a day as needed Not-Taking/PRN Cyclobenzaprine HCl 5 MG Tablet 1 tablet at bedtime as needed Orally once a day Not-Taking/PRN Pepcid 20 MG Tablet 1 tablet at bedtime as needed Orally Once a day UnknownCyclobenzaprine HCl 5 MG Tablet 1 tablet at bedtime as needed Orally twice a day Medication List reviewed and reconciled with the patientUnknown Cyclobenzaprine HCl 5 MG Tablet 1 tablet at bedtime as needed Orally twice a day Medication List reviewed and reconciled with the patient * Allergies: f loxin: swellingPravastatin Sodium: refluxSimvastatin: myalgiayes[Allergies Verified] Objective: * Vitals: H t: 67, Wt: 198, BMI:31.01, BP:122/80, Wt-k.81. weight is up 4 pounds since 12-22-23. * P ast Orders: L ab:UA ClnCatch+Micro w/rflx Cult (Order Date - 10/18/2024) (Collection Date & Time - 10/18/2024 07:00 AM) Value Reference Range Color Urine Yellow - Appearance Urine Clear - PH 7.5 5.0-9.0 - Glucose Urine UA Negative Negative - mg/dL Urine Blood Negative Negative - Specific [place] - Urine 1.010 1.005-1.025 - Urine Protein Negative Neg-Trace - mg/dL Urine Ketones Negative Negative - mg/dL Nitrite Urine Negative Negative - Leukocyte Esterase Urine Small (1+) A Negative - RBC Urine 0-2 0-2 - /HPF WBC Urine 0-5 0-5 - /HPF Squamous Epithelial Cell Urine 0-2 0-2 - /HP F Bacteria Urine 4+ None Seen - Hyaline Casts Urine 0-2 0-2 - /LPF L ab:Comprehensive Met. Panel (Order Date - 10/18/2024) (Collection Date & Time - 10/18/2024 07:00 AM) Value Reference Range Sodium 140 135-145 - mmol/L Bilirubin Total 1.5 H 0.0-1.0 - mg/dL Aspartate Amino Transferase 38 H 5-37 - U/L Alanine Aminotransferase 59 H 0-40 - U/L Total Protein 6.7 6.5-8.0 - g/dL Albumin Level 4.5 3.5-5.0 - g/dL Alkaline Phosphatase 103 39-117 - U/L Potassium 4.1 3.3-5.1 - mmol/L Chloride 105 96-108 - mmol/L Carbon Dioxide 27 22-29 - mmol/L Anion Gap 12 12-20 - Blood Urea Nitrogen 7 L 9-16 - mg/dL Creatinine 0.92 0.5-1.4 - mg/dL Estimated Glomerular Filt Rate > 60 - Glucose Random 107 60-115 - mg/dL Calcium 8.9 8.4-10.2 - mg/dL L ab:Complete Blood Count Auto Diff (Order Date - 10/18/2024) (Collection Date & Time - 10/18/2024 07:00 AM) Value Reference Range White Blood Count 5.5 4.8-10.8 - X10*3/uL Red Blood Count 4.42 L 4.60-5.80 - X10*6/uL Hemoglobin 14.7 14.0-18.0 - g/dl Hematocrit 41.5 L 42.0-52.0 - % Mean Corpuscular Volume 93.9 80.0-98.0 - fL Mean Corpuscular Hemoglobin 33.3 H 27.0-33.0 - pg Mean Corpuscular HGB Conc 35.4 31.0-36.0 - g/ dl Red Cell Distribution Width 12.3 11.0-16.0 - % Platelet Count 198 160-400 - X10*3/uL Mean Platelet Volume 10.7 9.4-12.4 - fL Neutrophils Percent Auto 64.2 45-73 - % Imm Gran Pct Auto 0.2 0.0-0.4 - % Lymphocytes Percent Auto 22.2 20-40 - % Monocytes Percent Auto 9.0 2-11 - % Eosinophils Percent Auto 4.0 0-4 - % Basophils Percent Auto 0.4 0-2 - % NRBC Pct Auto 0.0 0.0-0.2 - /100WBC Neutrophils Absolute Auto 3.5 2.0-8.3 - x10* 3/uL Imm Gran Abs Auto 0.01 0.00-0.03 - X10*3/uL Lymphocytes Absolute Auto 1.2 1.2-4.9 - X10* 3/uL Monocytes Absolute Auto 0.5 0.1-1.2 - X10*3/ uL Eosinophils Absolute Auto 0.2 0.0-0.4 - X10* 3/uL Basophils Absolute Auto 0.0 0.0-0.2 - X10*3/ uL NRBC Abs Auto 0.000 0.0-0.012 - X10*3/uL L ab:Lipid Panel (Order Date - 10/18/2024) (Collection Date & Time - 10/18/2024 07:00 AM) Value Reference Range Triglycerides 170 H <150 - mg/dL Cholesterol 185 <200 - mg/dL LDL Cholesterol Calculated 100 H <100 - mg/dL HDL Cholesterol 51 >40 - mg/dL L ab:Urine Culture (Order Date - 10/18/2024) (Collection Date & Time - 10/18/2024) Value Reference Range Urine Culture No growth. - * Examination: G eneral Examination: GENERAL APPEARANCE: w ell developed, well nourished, in no acute distress. HEAD: n ormocephalic, atraumatic. EYES: p upils equal, round, reactive to light and accommodation, sclera non-icteric. EARS: n ormal. ORAL CAVITY: m uc[place] moist. THROAT: c lear. NECK/THYROID: n jersey supple, full range of motion, no cervical lymphadenopathy, no bruits. SKIN: w arm and dry, no suspicious lesions. HEART: r egular rate and rhythm, S1, S2 normal, no murmurs.? LUNGS: c lear to auscultation bilaterally. ABDOMEN: s oft, nontender, nondistended, bowel sounds present, normal, no organomegaly , no masses palpable. RECTAL EXAM: n ormal tone, no external hemorrhoids, no masses palpable, prostate normal, stool guaiac negative. MALE GENITOURINARY: u ncircumcised, no penile lesions or discharge, no testicular mass, testes descended bilaterally. EXTREMITIES: n o clubbing, cyanosis, or edema. NEUROLOGIC: n onfocal, motor strength normal upper and lower extremities, sensory exam intact. Assessment: * Assessment: 1. A nnual physical exam - Z00.00 (Primary) 2 . R ising PSA level - R97.20? 3. A uditory hallucinations - R44.0 4 . E ssential (primary) hypertension - I10 5 . P ure hypercholesterolemia - E78.00 6 . Colon cancer screening - Z12.11 7 . D epression screening - Z13.31 ? Plan: * Treatment: 2. R ising PSA level L AB: PSA Free and Total (Ordered for 02/14/2025) Notes: had a decrease ijn his estrogen which may be related to his decrease in his estrogen. will recheck psa in 3 months 3. A uditory hallucinations Notes: has not agreed to any evaluation or treatment 4. E ssential (primary) hypertension Notes: stable, will continue current regiment 5. P ure hypercholesterolemia Notes: stale, will continue current regiment 6. C olon cancer screening L AB: Occult Blood, Stool, Guaiac (Collection Date & Time - 11/15/2024) N egative Value Reference Range O ccult Blood, Stool, Guaiac Neg Notes: guaiac negative??7.?Depression screening? Notes: negative screen?? * Immunizations: Influenza High Dose (Not administered - Refused: Patient decision) * Procedure Codes: 8 2270 TEST FOR BLOOD, FECES * * Sign off status: Completed true * Provider: Ritchie Silvestre MD Date: 0 11/15/2024 Generated for Roger rosen/Alfonso/Giaitting on: 1 04/18/2024 12:44 PM EST History and Physical Notes * HPI (History of Present Illness) Category Sub-Category Detail Notes Category Not es Symptom(s) patient is a 58 yo male here for annual visit with review of recent labs and follow up of chronic issues Depression Screening PHQ-9 Little interest or pleasure in doing things: Not at all here for yearly evaluation. hearing voices that are threatening him. feels it is related to workman's comp/ Feeling down, depressed, or hopeless: No t at all Trouble falling or staying asleep, or sl eeping too much: Not at all Feeling tired or having little energy: N ot at all Poor appetite or overeating: Not at all Feeling bad about yourself o r that you are a failure, or have let yourself or your family down: Not at all Trouble concentrating on thi ngs, such as reading the newspaper or watching television: Not at all Moving or speaking so slowly that other people could have noticed; or the opposite, being so fidgety or restless that you have been moving around a lot more than usual: Not at all Thoughts that you would be b octavia off or of hurting yourself in some way: Not at all Total Score: 0 Interpretation and Intervention Depression Brooke le Findings: Negative Follow-Up for Depression: : review of PH Q-9 found negative result, no follow-up needed SDOH Questions SDOH Questions In the past year have you been worried about losing housing?: No In the past year have you or any family members you live with been unable to get any of the following when it was really needed? Check all that apply:: None Fall Risk History Have you had any falls with injury i n the past year?: No Have you had two or more falls in the st year?: No Communication Needs Communication Needs Does the patient have a hearing impairment: No Does the patient have a vision impairmen t?: Yes If yes, what is the vision impairment?: Glasses Does the patient have a cognition impair ment?: No Examination Category Sub-Category Detail Notes Category Not es General Examination GENERAL APPEARANCE: well dev eloped, well nourished, in no acute distress HEAD: normocephalic, atrau matic EYES: pupils equal, round, reactive to light and accommodation, sclera non-icteric EARS: normal THROAT: clear NECK/THYROID: neck supple, full ra nge of motion, no cervical lymphadenopathy, no bruits HEART: regular rate and rhy thm, S1, S2 normal, no murmurs LUNGS: clear to auscultatio n bilaterally ABDOMEN: soft, nontender, non distended, bowel sounds present, normal, no organomegaly , no masses palpable NEUROLOGIC: nonfocal, motor stre ngth normal upper and lower extremities, sensory exam intact SKIN: warm and dry, no yuri picious lesions EXTREMITIES: no clubbing, cyanosi s, or edema MALE GENITOURINARY: uncircumcised, no pe nile lesions or discharge, no testicular mass, testes descended bilaterally RECTAL EXAM: normal tone, no exte rnal hemorrhoids, no masses palpable, prostate normal, stool guaiac negative ORAL CAVITY: mucosa moist
--- OUTSIDE RECORDS SUMMARY | 2024-12-25 06:28 | XMS_ITS ---
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 Name Role Phone Azael Silvestre Primary Care Provider [phone] REASON FOR VISIT ER Encounters Encounter Location Date Provider Diagnosis Azael Silvestre MD [address] [place] [address] [place] [phone] 12/25/2024 Azael Silvestre Plan Of Treatment Next Appt Details Provider Name:Azael foley, 05/13/2025 07:45:00 AM, [address] [place] [address], [address], [phone], Provider Name:Azael foley, 05/20/2025 03:00:00 PM, [address] [place] [address], [phone], Provider Name:Azael foley, 11/12/2025 07:30:00 AM, [address] [place] [address], [phone], Provider Name:Azael foley, 11/19/2025 02:30:00 PM, [address], [address], [place], [place], [phone], Progress Notes * Jaya BENITEZ MDOB:[birth year] (59 yo M)Acc No.[id number]:12/25/2024 Patient: Ritchie OSCAR Jaya [place] :1965 A ge:59 Y S ex:Male Address:[address] [place] [address] [address], [place] [address] * true * Date: Generated for Roger rosen/Alfonso/eTransmitting on: 04/18/2024 12:45 PM EST
--- OUTSIDE RECORDS SUMMARY | 2024-12-28 05:30 | XMS_ITS ---
Author Organization Azael Silvestre MD Address [address] [place] [phone] Care Team Providers Care Master Fire Control Technician Name Role Phone Azael Silvestre Primary Care Provider Allergies Allergen (clinical drug ingredient) Drug/Non Drug Allergy documented on EMR Reaction Allergy Type Onset Date Status simvastatin Simvastatin myalgia Drug Allergy Act dontae pravastatin Pravastatin Sodium reflux Drug Allergy Active ofloxacin floxin (uncoded) swelling Allergy Act dontae Reason For Referral Reason back pain Diagnosis 1 Back pain (M54.9) Referral Organization Azael Silvestre MD Referring Provider First Name Azael Referring Provider Last Name Nirmala Referring Provider Speciality Internal M edicine Referred Provider Ike Zhang Referred Provider Specialty Pain Medicin e General Notes Lauren Razo 1 10:45:29 AM >referral info faxed, Lauren Razo 01/08/2025 09:31:13 AM spoke with office they said they have been trying yo get a hold of him to book appt. spoke with patient he will be calling them to book his appt, Lauren Razo 01/08/2025 10:46:26 AM >PATIENT IS AWARE OF APPT Referral Priority Routine Referral Appointment Date 01/29/2025 Reason bladder dysfunction Diagnosis 1 Bladder dysfunction (N31.9) Referral Organization Azael Silvestre MD Referring Provider First Name Azael Referring Provider Last Name Nirmala Referring Provider Speciality Internal M edicine Referred Provider Margo Smith Referred Provider Specialty Urology General Notes Lauren Razo 1 10:45:56 AM >referral info faxed, Lauren Razo 01/08/2025 09:34:59 AM > spoke with office they are not able to reach patient. Spoke with patient he will be calling their office to book an appt, Lauren Razo 01/18/2025 11:19:20 AM >appt was booked in June due to patient told them he would be traveling. He is aware of appt Referral Priority Routine Referral Appointment Date 06/27/2025 REASON FOR VISIT F?U ERV SI pain Medications Medication SIG (Take, Route, Frequency, Duration) Notes Start Date End Date Status Ibuprofen 800 MG 1 tablet with food o r milk as needed Orally every 8 hrs as needed for 30 days 10/04/2023 Not-Taking Atorvastatin Calcium 80 MG 1 tablet Oral ly Once a day Active Divigel 0.25 MG/0.25GM 1 packet to skin Transdermal Once a day for 30 day(s) Active Spironolactone 50 MG 1 tablet Orally bid Active Metoprolol Tartrate 50 MG 1 tablet Orall y Twice a day Active predniSONE 20 MG 1 tablet with food o r milk Orally Once a day Active Cyclobenzaprine HCl 5 MG 1 tablet at bed time as needed Orally twice a day for 14 days 09/17/2022 Unknown Pepcid 20 MG 1 tablet at bedtime as needed Orally Once a day for 30 day(s) Not-Taking Cyclobenzaprine HCl 5 MG 1 tablet at bed time as needed Orally once a day for 30 day(s) 02/22/2023 Not-Taking Aspirin 81 MG 1 tablet Orally Once a day Active LORazepam 1 MG 1 tablet as needed Orally Twice a day as needed for 30 days 12/01/2023 Not-Taking Problems Problem Type SNOMED Code ICD Code Onset Dates Problem Status W/U Status Risk Notes Problem Bladder dysfunction (92983735) Bladder dysfunction (N31.9) Active confirmed Vital Signs Blood pressure systolic 134 mm Hg 12/29/19 25 Blood pressure diastolic 80 mm Hg 025 Height 67 in 12/28/2024 Weight 199 lbs 12/28/2024 BMI 31.16 kg/m2 12/28/2024 Encounters Encounter Location Date Provider Diagnosis Azael Silvestre MD [address] [place] [phone] 12/28/2024 Azael Silvestre Back pain M54.9 and Bladder dysfunction N31.9 Assessments Encounter Date Diagnosis (ICD Code) Assessment Notes Treatment Notes Treatment Clinical Notes Section Notes 12/28/2024 Back pain (ICD-10 - M54.9) needs referral to [facility] pain clinic dr Browning 12/28/2024 Bladder dysfunction (ICD-10 - N31.9) referral to dr Villegas Plan Of Treatment Treatment Notes Assessment Notes Back pain needs referral to [facility] pain clinic dr Browning Bladder dysfunction referral to dr Clay rose Referrals Referral Date Details 12/28/2024 12/28/2024, back avis n, Ike Vicente 12/28/2024 12/28/2024, bladder dysfunction, Margo Panda Next Appt Details Follow Up: 6 Months, Reason: Provider Name:Azael foley, 05/13/2025 07:45:00 AM, [address] [place] [address], [address], [phone], Provider Name:Azael foley, 05/20/2025 03:00:00 PM, [address] [place] [address], [address], [phone], Provider Name:Azael foley, 11/12/2025 07:30:00 AM, [address] [place] [address], [address], [phone], Provider Name:Azael foley, 11/19/2025 02:30:00 PM, [address] [place] [address], [phone], Progress Notes * Jaya BENITEZ MDOB:[birth year] (59 yo M)Acc No.[id number]:12/28/2024 Progress Notes Patient: Jaya MCCRAY Provider: Ritchie Silvestre MD :1965 A ge:59 Y S ex:Male Date:12/28/2024 Address:[address] [place] [address] [address], [place], [id number] Subjective: * Chief Complaints: * F ?U ERV SI pain * HPI: S ymptom(s): patientis a 59 yo male here for follow up recent ER visit/ feels that the voice in head is attacking him/ can't see his spine doctor any longer. * ROS: G eneral/Constitutional: Denies C hills. D enies F atigue. D enies F ever. D enies H eadache. E NT: Denies S ore throat. R espiratory: Denies C ough. D enies S hortness of breath at rest. D enies S hortness of breath with exertion. G astrointestinal: Denies D iarrhea. D enies N ausea. i s taking prednisone 40 mg per day for one day and taper over the next week. * Medical History: * Surgical History: * Hospitalization/Major Diagno stic Procedure: * Medications: T akingpredniSONE 20 MG Tablet 1 tablet with food or milk Orally Once a day Aspirin 81 MG Tablet 1 tablet Orally Once a day Divigel 0.25 MG/0.25GM Gel 1 packet to skin Transdermal Once a day Atorvastatin Calcium 80 MG Tablet 1 tablet Orally Once a day Metoprolol Tartrate 50 MG Tablet 1 tablet Orally Twice a day Spironolactone 50 MG Tablet 1 tablet Orally bid Taking predniSONE 20 MG Tablet 1 tablet with food or milk Orally Once a day Taking Aspirin 81 MG Tablet 1 tablet [...] Objective: * Vitals: H t: 67, Wt: 199, BMI:31.16, BP:134/80, Wt-k.27. * Examination: G eneral Examination: GENERAL APPEARANCE: a lert, well hydrated, in no distress.? HEAD: n ormocephalic. HEART: n o murmurs, rubs, gallops, regular rate and rhythm.? LUNGS: n o wheezes, rales, rhonchi, good air movement, clear to auscultation bilaterally. Assessment: * Assessment: 1. B ack pain - M54.9 (Primary) 2 . B ladder dysfunction - N31.9 Plan: * Treatment: 2. B ladder dysfunction Notes: referral to dr Villegas Referral To:[facility] Reason:bladder dysfunction * Procedure Codes: * Follow Up: 6 Months * * Sign off status: Completed true * Provider: Ritchie Silvestre MD Date: Generated for Roger rosen/Alfonso/Margaret on: 04/18/2024 12:44 PM EST History and Physical Notes * HPI (History of Present Illness) Category Sub-Category Detail Notes Category Not es Symptom(s) patientis a 59 yo male here for follow up recent ER visit/ feels that the voice in head is attacking him/ can't see his spine doctor any longer. Examination Category Sub-Category Detail Notes Category Not es General Examination GENERAL APPEARANCE: alert, w ell hydrated, in no distress HEAD: normocephalic HEART: no murmurs, rubs, ga llops, regular rate and rhythm LUNGS: no wheezes, rales, r honchi, good air movement, clear to auscultation bilaterally Consultation Request Notes Referral Date Referring Provider Referred Provider Not es 12/28/2024 Azael Silvestre Yuri back pain 12/28/2024 Azael Silvestre Corlis L b ladder dysfunction
--- OUTSIDE RECORDS SUMMARY | 2025-02-15 12:46 | XMS_ITS | Patient Health Record ---
Author Organization Azael iSlvestre MD Address [address] [place], [place] [id number] Care Team Providers Care Reinforcing Bar Setter Name Role Phone Azael Silvestre Primary Care Provider [phone] Allergies Allergen (clinical drug ingredient) Drug/Non Drug Allergy documented on EMR Reaction Allergy Type Onset Date Status simvastatin Simvastatin myalgia Drug Allergy Act dontae pravastatin Pravastatin Sodium reflux Drug Allergy Active ofloxacin floxin (uncoded) swelling Allergy Act dontae Results Component Value Reference Range Notes Liver Panel Reviewed date:04/20/2024 02:21:26 PM Interpretation: Performing Lab:[facility], [address] [place] [phone] Notes/Report: Bilirubin Total 1.3 0.0-1.0 mg/dL Bilirubin Direct 0.4 0.0-0.5 mg/dL Aspartate Amino Transferase 31 5-37 U/L Alanine Aminotransferase 45 0-40 U/L Total Protein 7.3 6.5-8.0 g/dL Albumin Level 4.5 3.5-5.0 g/dL Alkaline Phosphatase 83 39-117 U/L Lipid Panel with Reflex Reviewed date:04/20/2024 02:21:06 PM Interpretation: Performing Lab:[facility], [address] [place] [address] Notes/Report: Triglycerides 130 <150 mg/dL Desirable Triglyceride: [...] ff Reviewed date:10/18/2024 08:03:27 PM Interpretation: Performing Lab:[facility], [address] [place] [address] Notes/Report: White Blood Count 5.5 4.8-10.8 X10*3/uL [...] Panel Reviewed date:10/18/2024 08:02:24 PM Interpretation: Performing Lab:[address] [address] Notes/Report: Triglycerides 170 <150 mg/dL Desirable Triglyceride: [...] (Free>4and<10) Reviewed date:11/15/2024 05:00:22 PM Interpretation:11-15-2024 Performing Lab:[address] [address] Notes/Report: PSA,Total (Free>4and<10) 3.55 0.00-4.00 ng/mL A [...] t Reviewed date:10/18/2024 08:02:44 PM Interpretation: Performing Lab:[address] [address] Notes/Report: Urine, Clean Catch Color Urine Yellow Appearance Urine Clear PH 7.5 5.0-9.0 Glucose Urine UA Negative Negative mg/dL Urine Blood Negative Negative Specific [place] - Urine 1.010 1.005-1.025 Urine Protein Negative [...] Negative Occult Blood, Stool, Guaiac Neg Hold Adan Reviewed date:04/20/2024 02:20:06 PM Interpretation: Performing Lab:[address] [address] Notes/Report: Mackenzie Arellano See Note Specimen held untested for 24 hours; Call to request Chemistry testing. XR thoracic spine 2V Reviewed date:05/11/2024 12:34:02 PM Interpretation: Performing Lab: Notes/Report: [address] [address] XRay Report Signed Patient: Jaya Finley MR#: [id number] 718 : 1965 Acct:[id number] Age/Sex: 58 / M ADM Date: 05/11/24 Loc: KRYS Attending Dr: Francisco Cerda DO Ordering Physician: Francisco Cerda DO Date of Service: 05/11/24 Procedure(s): XR thoracic spine 2V Accession Number(s): [id number] cc: Azael Silvestre MD; Francisco Cerda DO [...] Carlos Quintana MD 05/11/2024 10:53 AM EST RP Dictated By: Juan Carlos Cruz MD Signed By: <Electronically signed by Juan Carlos Orellana MD in OV> 05/11/24 1053 DD/ 0846 TD/TT: 05/11/24 0853 General Dentist: [place] [address] XRay Report Signed Patient: Ty Finley MR#: [id number] 718 : 1965 Acct:[id number] Age/Sex: 58 / M ADM Date: 05/11/24 Loc: HO.XRAY Attending Dr: Francisco Cerda DO Ordering Physician: Francisco Cerda DO Date of Service: 05/11/24 Procedure(s): XR thoracic spine 2V Accession Number(s): [id number] cc: Azael Silvestre MD; Francisco Cerda DO [...] Carlos Quintana MD 05/11/2024 10:53 AM EST RP Dictated By: Juan Carlos Tamayo MD Signed By: <Electronically signed by Juan Carlos Orellana MD in OV> 05/11/24 1053 DD/ 0846 TD/TT: 05/11/24 0853 General Dentist: Robert Clancy. Panel Reviewed date:10/18/2024 07:54:26 PM Interpretation: Performing Lab:[facility], [address] [place] [address] Notes/Report: Sodium 140 135-145 mmol/L Potassium 4.1 [...] Culture Reviewed date:10/20/2024 04:58:39 PM Interpretation: Performing Lab:[facility], [address] [place] [address] Notes/Report: Urine Culture No growth. XR skull min 4V Reviewed date:10/22/2024 05:45:24 PM Interpretation: Performing Lab: Notes/Report: [address] [address] XRay Report Signed Patient: Jaya Finley MR#: [id number] 718 : 1965 Acct:[id number] Age/Sex: 58 / M ADM Date: 10/22/24 Loc: KRYS Attending Dr: Francisco Cerda DO Ordering Physician: Francisco Cerda DO Date of Service: 10/22/24 Procedure(s): XR skull min 4V Accession Number(s): [id number] cc: Azael Silvestre MD; Francisco Cerda DO [...] signed by Starr Lui MD in OV> 10/22/241621 DD/ 20 TD/TT: 10/22/241620 General Dentist: [address] [address] XRay Report Signed Patient: Ty Finley MR#: [id number] 718 : 1965 Acct:[id number] Age/Sex: 58 / M ADM Date: 10/22/24 Loc: HO.XRAY Attending Dr: Francisco Cerda DO Ordering Physician: Francisco Cerda DO Date of Service: 10/22/24 Procedure(s): XR sku ll min 4V Accession Number(s): [id number] cc: Azael Silvestre MD; Francisco Cerda DO [...] signed by Starr Lui MD in OV> 10/22/241621 DD/ 20 TD/TT: 10/22/241620 General Dentist: Complete Blood Count Auto Di ff Reviewed date:12/22/2024 05:27:44 PM Interpretation: Performing Lab:[facility], [address] [place] [address] Notes/Report: White Blood Count 9.3 4.8-10.8 X10*3/uL [...] Panel Reviewed date:12/22/2024 05:27:28 PM Interpretation: Performing Lab:[facility], [address] [place] [address] Notes/Report: Sodium 139 135-145 mmol/L Potassium 4.7 [...] Magnesium Reviewed date:12/22/2024 05:26:24 PM Interpretation: Performing Lab:[facility], [address] [place] [address] Notes/Report: Magnesium 1.8 1.6-2.6 mg/dL XR lumbar spine 2-3V Reviewed date:12/22/2024 05:24:53 PM Interpretation: Performing Lab: Notes/Report: [address] [address] XRay Report Signed Patient: Jaya Finley MR#: [id number] 718 : 1965 Acct:[id number] Age/Sex: 59 / M ADM Date: 12/22/24 Loc: HO.ED Attending Dr: Ordering Physician: Amina Cabrera Date of Service: 12/22/24 Procedure(s): XR lumbar spine 2-3V Accession Number(s): [id number] cc: Azael Silvestre MD; Amina Cabrera Reason [...] signed by Denae Solomon MD in OV> 12/22/241413 DD/ 11 TD/TT: 12/22/241411 General Dentist: [place] [address] XRay Report Signed Patient: Ty Finley MR#: [id number] 718 : 1965 Acct:[id number] Age/Sex: 59 / M ADM Date: 12/22/24 Loc: .ED Attending Dr: Ordering Physician: Amina Cabrera Date of Service: 12/22/24 Procedure(s): XR lum bar spine 2-3V Accession Number(s): [id number] cc: Azael Silvestre MD; Amina Cabrera Reason for Exam: acu te left sided back pain CLINICAL HISTORY: ac [place] left sided back pain 3 views lumbar [...] signed by Denae Solomon MD in OV> 12/22/241413 DD/ 11 TD/TT: 12/22/241411 General Dentist: Reason For Referral Reason back pain Diagnosis [...] Lauren Razo 1 10:45:56 AM >referral info faxedDanni Annette 01/08/2025 09:34:59 AM > spoke with office they are not able to reach patient. Spoke with patient he will be calling their office to book an appt, Lauren Razo 01/18/2025 11:19:20 AM >appt was booked in June due to patient told them he would be traveling. He is aware of appt Referral Priority Routine Referral Appointment Date 06/27/2025 Medications Medication SIG (Take, Route, Frequency, Duration) Notes Start Date End Date Status predniSONE 20 MG 1 tablet with food o r milk Orally Once a day Active Cyclobenzaprine HCl 5 MG 1 tablet at bed time as needed Orally twice a day for 14 days 09/17/2022 Unknown LORazepam 1 MG 1 tablet as needed Orally Twice a day as needed for 30 days 12/01/2023 Not-Taking Ibuprofen 800 MG 1 tablet with food o r milk as needed Orally every 8 hrs as needed for 30 days 10/04/2023 Not-Taking Pepcid 20 MG 1 tablet at bedtime as needed Orally Once a day for 30 day(s) Not-Taking Cyclobenzaprine HCl 5 MG 1 tablet at bed time as needed Orally once a day for 30 day(s) 02/22/2023 Not-Taking Atorvastatin Calcium 80 MG 1 tablet Oral ly Once a day Active Divigel 0.25 MG/0.25GM 1 packet to skin Transdermal Once a day for 30 day(s) Active Spironolactone 50 MG 1 tablet Orally bid Active Metoprolol Tartrate 50 MG 1 tablet Orall y Twice a day Active Aspirin 81 MG 1 tablet Orally Once a day Active Immunizations Vaccine Route Administration [...] Problem Status W/U Status Risk Notes Problem 18994595 Anxiety (F41.9) Active confirmed Problem Gender identity disorder (28878876) Gender identity disorder, unspecified (F64.9) Active confirmed Problem Essential hypertension (94666899) Essential (primary) hypertension (I10) Active confirmed Problem 5085023 Lymphangitis (I89.1) Active confirmed Problem 66307206890184817 Acute recurren t maxillary sinusitis (J01.01) Active confirmed Problem 615993180 Lumbago with sci atica, left side (M54.42) Active confirmed Problem 638354368 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 Problem Disorder of breast (51433684) Disorder of breast, unspecified (N64.9) Active confirmed Problem Auditory hallucinations (64816161) Auditory hallucinations (R44.0) Active confirmed Problem 298529000 Body mass index (BMI) 31.0-31.9, adult (Z68.31) Active confirmed Problem 514496888 Lumbar disc dise ase (M51.9) Active confirmed Problem 07263319 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) Active confirmed Problem 333158913 Environmental allergies (Z91.09) Active confirmed Problem 19902154 Memory loss (R41.3) Active confirmed Problem 3100559434477 Atherosclerosis of [place] coronary artery of [place] heart without angina pectoris (I25.10) Active confirmed Problem 844948038 History of coron lizbeth artery disease (Z86.79) Active confirmed Problem 613932325 Non-ST elevation NV (NSTEMI) (I21.4) Active confirmed Problem 545653467 Tension headache (G44.209) Active confirmed Problem Allergic reaction caused by bee sting (disorder) (899016946) H/O bee sting allergy (Z91.030) Active confirmed Problem 208053564 Panic attack (F41.0) Active confirmed Problem 13518016 Peptic ulcer dis ease (K27.9) Active confirmed Problem 619793513 Pure hypercholesterolemia (E78.00) Active confirmed Problem 01028338 Bilateral carpal tunnel syndrome (G56.03) Active confirmed Problem 644743969 Lesion of tongue (K14.8) Active confirmed Problem 596416722 Arthritis of [place] d (M19.049) Active confirmed Problem Bladder dysfunction (81197903) Bladder dysfunction (N31.9) Active confirmed Problem 20553110 Bladder distenti on (N32.89) Active confirmed Problem 43313844 Thyroglossal gil t cyst (Q89.2) Active confirmed Problem 081616635 Cervical arthrit is (M47.812) Active confirmed Problem Disorder of urinary bladder (44602875) Bladder disorder (N32.9) Active confirmed Problem 0848551 Enlarged thyroid (E04.9) Active confirmed Problem 87050315 Dysfunction, kapil dder (N31.9) Active confirmed Problem 768454132 Paranoia (F22) Active confirmed Problem 916112754 Paranoid states (delusional disorders) (F22) Active confirmed Vital Signs Blood pressure diastolic 80 mm Hg 12/28/2024 Height 67 in 12/28/2024 Blood pressure systolic 134 mm Hg 12/28/2024 Weight 199 lbs 12/28/2024 BMI 31.16 kg/m2 12/28/2024 Encounters Encounter Location Date Provider Diagnosis Azael Silvestre MD [address] [place] [id number] 04/20/2024 Azael Silvestre Pure hypercholestero lemia E78.00 Azael Silvestre MD [address] [place] [address] [id number] 10/18/2024 Azael Silvestre Blood tests for rout ine general physical examination Z00.00 ; Essential (primary) hypertension I10 and Pure hypercholesterolemia E78.00 Azael Silvestre MD [address] [place] [id number] 02/15/2025 Azael Silvestre Rising PSA level R97 .20 Azael Silvestre MD [address] [id number] 11/15/2024 Azael Silvestre Annual physical exam Z00.00 ; Rising PSA level R97.20 ; Auditory hallucinations R44.0 ; Essential (primary) hypertension I10 ; Pure hypercholesterolemia E78.00 ; Colon cancer screening Z12.11 and Depression screening Z13.31 Azael Silvestre MD [address] [place] [id number] 12/28/2024 Azael Silvestre Back pain M54.9 and Bladder dysfunction N31.9 Azael Silvestre MD [address] [place] [id number] 12/25/2024 Azael Silvestre Assessments Encounter Date Diagnosis (ICD Code) Assessment Notes Treatment Notes Treatment Clinical Notes Section Notes 04/20/2024 Pure hypercholesterolemia (ICD-10 - E78.00) 10/18/[address] ine general physical examination (ICD-10 - Z00.00) 02/15/2025 Rising PSA level (IC D-10 - R97.20) 11/15/2024 Annual physical exam (ICD-10 - Z00.00) labs reviewed and discussed with patient 11/15/2024 Rising PSA level (IC D-10 - R97.20) had a decrease ijn his estrogen which may be related to his decrease in his estrogen. will recheck psa in 3 months 12/28/2024 Back pain (ICD-10 - M54.9) needs referral to [facility] Browning 12/28/2024 Bladder dysfunction (ICD-10 - N31.9) referral to dr Villegas 10/18/2024 Essential (primary) hypertension (ICD-10 - I10) [...] Electrocardiogram (EKG) 07/09/2016 US ABD 10/04/2023 Comprehensive Ada. Panel Fast CT soft tissue neck w con 04/13/2022 CT soft tissue neck wo/w con 04/09/2022 FL barium swallow 05/14/2022 US bladder 08/10/2022 PSA Free and Total 02/15/2025 Next Appt Details Provider Name:Azael foley, 05/13/2025 07:45:00 AM, [address] [place] [address], [address], [place], [place], [phone], Provider Name:Azael foley, 05/20/2025 03:00:00 PM, [address], [address], [place], [phone], Provider Name:Azael Wardmichael foley, 11/12/2025 07:30:00 AM, [address], [address], [place], [phone], Provider Name:Azael Adams Sylviamichael og, 11/19/2025 02:30:00 PM, [address], [address], [place], [phone], Insurance Providers Payer Name Payer Address Payer Phone Subscriber Number Group Number Insured Name Patient Relationship to Insured Coverage Start Date Coverage End Date [facility] [address] [facility] [address] [facility] [place] [phone] [id number] Jaya Finley Self - patient is the insured Medical (General) History Medical History History ICD Code 2014 patient refuses colonoscopy refuses any cholesterol drug negative cysto and ct 2016 negative cysto and cat scan refuses mammo
[2025-02-15 13:33] LABS: PSA,Total (Free>4and<10) 0.59 ng/mL (0.00-4.00)
== END 2025-02-15 10:41 | disposition home or self-care (01) ==
LOC: HO.LNP 10:40
PROVIDERS: Visit Provider Internal Medicine
DX: Z12.5 Encounter for screening for malignant neoplasm of prostate (principal); R97.20 Elevated prostate specific antigen [PSA]
CPT/HCPCS: 84153